=== PATIENT | female | born 1930 | race Caucasian/White ===

== ENCOUNTER 2016-11-29 12:43 | Inpatient (IN) | payer OTHER ==
[2016-11-29 18:30] LABS: MANUAL DIFF NEEDED? NO
[2016-11-29] MEDS: PROTONIX IV SCH (18:34)
[2016-11-29] MEDS: SODIUM CHLORIDE 0.9% INJ SCH (18:34)
[2016-11-29] MEDS: NS 1,000 ML IV SCH (18:34)
[2016-11-29 18:35] LABS: URINE MICRO REVIEW NEEDED? NO; URINE SOURCE CLEAN CATCH
[2016-11-29 18:38] LABS: BILIRUBIN URINE NEGATIVE (NEGATIVE); BLOOD URINE NEGATIVE (NEGATIVE); COLOR STRAW; GLUCOSE URINE NEGATIVE (NEGATIVE); LEUKOCYTES URINE NEGATIVE (NEGATIVE); NITRITE URINE NEGATIVE (NEGATIVE); PH URINE 6.5; PROTEIN URINE NEGATIVE (NEGATIVE); SP GRAVITY URINE 1.006; TURBIDITY URINE CLEAR (CLEAR); UR EPITHELIAL CELLS <10 /HPF (<10); URINE BACTERIA NEGATIVE /HPF; URINE RBC <10 /HPF (<10); URINE WBC <10 /HPF (<10); UROBILINOGEN URINE NORMAL (NORMAL)
[2016-11-29 18:38] LABS: BASO% 1.5 % (0.0-0.8); EOS# 0.15 X1000 (0.0-0.7); EOS% 2.7 % (0.0-10.0); HEMATOCRIT 23.6 % (37.0-47.0); HEMOGLOBIN 7.3 g/dL (12.0-16.0); IMM GRAN# 0.04 X1000 (0.0-0.04); IMM GRAN% 0.7 % (0.0-0.5); LYMPH# 1.05 X1000 (1.2-3.4); LYMPH% 19.2 % (20.5-51.1); MCH 24.3 PG (27-31); MCHC 30.9 g/dL (33-37); MCV 78.4 FL (81-99); MONO# 0.67 X1000 (0.11-0.59); MONO% 12.2 % (1.7-9.3); MPV 9.3 FL (7.4-10.4); NEUT% 63.7 % (42.2-75.2); PLT 424 X1000 (130-400); RBC 3.01 XMIL (4.2-5.4)
[2016-11-29 18:47] LABS: INR 1.16; PROTIME 12.3 Seconds (9.2-11.7); PTT 29.5 Seconds (22.0-36.0)
[2016-11-29 18:54] LABS: CALCIUM 10.2 mg/dL (8.8-10.2); POTASSIUM 4.9 mmol/L (3.5-5.1); TOTAL BILIRUBIN 0.25 mg/dL (0.20-1.00); TOTAL PROTEIN 6.3 g/dL (6.3-8.3)
--- NOTE | 2016-11-29 19:36 | HISTORY AND PHYSICAL ---
CHIEF COMPLAINT: Rectal bleed. HISTORY OF PRESENT ILLNESS: Ms. Maguire, 86-year-old, white female patient, recently discharged from [facility] on November 23 when patient was admitted with right upper lobe pneumonia. The patient was doing fairly well. After going home, the patient started having rectal bleed. It was Sunday, Sunday, Sunday. Moderate amount. Fresh bleeding per rectum. Some abdominal cramp. Perirectal pain. Patient came to see me yesterday. I evaluated patient. Did blood work. Offered patient to go to hospital, but patient claimed her bleeding is stopped and she wants to wait. I did receive blood test result. Her hemoglobin in my office was 7.2. Her discharge hemoglobin from the hospital was 9.5. I talked to patient's daughter. The patient had some feet swelling. The patient was feeling weak. She did have some confusion and disorientation. The patient had mild rectal bleed. Considering her blood loss anemia, compromised cardiopulmonary status, history suggestive of metabolic encephalopathy, I decided to admit the patient for further care. The patient was complaining of chest pain when I evaluated her today, which she described as a soreness. She did have some palpitation. Mild shortness of breath. She denied any nausea or vomiting. No diarrhea. No high-grade fever or chills. Denied any nosebleed, gum bleed, hematemesis, hematuria or hemoptysis. No heat or cold intolerance. Oral intake was variable. The patient does have arthritic pain in the lower back, also in the knee. No further history available at this time. ALLERGIES: Penicillin, phenytoin sodium. PAST MEDICAL HISTORY: 1. Hypertension. 2. Osteoarthritis. 3. Hypothyroidism. 4. Gastritis and reflux disease. 5. Abdominal aortic aneurysm. 6. Cardiac arrhythmia. 7. Peripheral neuropathy. 8. Hyperlipidemia. 9. Chronic pain. 10. Coronary artery disease. PERSONAL HISTORY: Single lives by herself. Denied alcohol or substance abuse. Independent in activities of daily living. The patient is a nonsmoker. FAMILY HISTORY: Noncontributory. REVIEW OF SYSTEMS: As per HPI. HOME MEDICATION: Patient is on Celebrex, Cardizem, Claritin, Flonase, diltiazem, Neurontin, fenofibrate, metoprolol, Zanaflex, Prevacid, meloxicam, Pletal, Imdur, aspirin, Perdiem, [place], multivitamin, Lasix, the patient was on Ceftin and potassium. PHYSICAL EXAMINATION: GENERAL: Elderly white female patient, in mild distress. VITAL SIGNS: Her blood pressure 150/77, pulse 110, respiration 18, temperature 98.2 degrees. SKIN: Senile turgor. HEENT: Head atraumatic normocephalic. Pale conjunctivae. Anicteric sclerae. Extraocular muscle movement normal. Fundus cannot be penetrated. Good oral hygiene. No tonsillopharyngeal congestion or exudate. Ears and nose benign. NECK: Supple. No JVD, thyromegaly or lymphadenopathy. CHEST: Bibasilar crepitation, no rales. CARDIOVASCULAR: S1 and S2. Tachycardia. 2/6 systolic murmur at the apex. No gallop or thrill. ABDOMEN: Soft, globular. Bowel sounds present. RECTAL: Exam in my office yesterday. Rectum was empty. No rectal mass. There was some blood on examining finger. EXTREMITIES: No cyanosis, clubbing. No acute DVT. Minimal swelling on the feet. PROPERTY MANAGEMENT BOOKKEEPER: Alert, awake, able to move all 4 limbs. LABORATORY DATA: Pending. CONSIDERATION: 1. Lower gastrointestinal bleed. My differential includes hemorrhoid, diverticular bleed. Considering her age, possibility of malignancy cannot be ruled out. 2. Acute blood loss anemia. 3. The patient had recent pneumonia, urinary tract infection, hypertension, osteoarthritis, gastritis, and reflux disease, dementia and confusion. PLAN: Admit the patient. I will transfuse 2 units of packed red blood cells considering patient being symptomatic and drop in hemoglobin and hematocrit and lower gastrointestinal bleed. Close observation. Oxygen. We will follow her laboratory. Gastroenterology consult, Dr. Cavanaugh informed and discussed her presentation encased with him. Overall plan discussed with patient and her daughter. They are in agreement.
--- NOTE | 2016-11-29 20:03 | CONSULTATION ---
DATE OF CONSULTATION: 11/29/2016 REASON FOR CONSULTATION: Evaluation of patient with rectal bleeding and anemia. HISTORY OF PRESENT ILLNESS: This is an 86-year-old lady who was seen by me about 6 months ago in the hospital because of an upper GI bleed. At that time she had epigastric pain , there was weakness and she had been having black tarry stools for 2 days. The patient had no nausea or vomiting. She had undergone endoscopy at that time which revealed a small hiatal hernia and mild gastritis. The patient did quite well. We actually talked about doing a colonoscopy at that time because of the chronic anemia but since the patient was elderly she did not want to get the colonoscopy done at that time and, therefore, it was not done. The patient went to see Dr. Newman yesterday and at that time she complained of having some fresh rectal bleeding. The patient was in the hospital for about 3 days for pneumonia and she was discharged on 11/23/2016. At that time her hemoglobin and hematocrit on arrival was 7.4 and 24. She received 2 units of blood transfusion and the hemoglobin went up to 9.5, hematocrit went up to 31. The patient did quite well and went home. When Dr. Newman checked her hemoglobin and hematocrit, it dropped to 7 again with hematocrit of 22. Therefore, he decided to admit the patient to give blood transfusions and consider further evaluation. PAST MEDICAL HISTORY: Patient has a history of hypertension, hyperlipidemia, aortic aneurysm, osteoarthritis, cardiac arrhythmia, chronic pain, peripheral neuropathy and also a history of hiatal hernia. Her scarrer is Dr. Hernandez. The aneurysm is said to be about 4.2 cm. She said that she had a colonoscopy done a few years ago and at that time what was found she does not remember. SOCIAL HISTORY: She does not abuse, alcohol or tobacco. She lives by herself. She has a daughter and other family members taking care of her. PAST SURGICAL HISTORY; Craniotomy Cataract surgery Appendectomy FAMILY HISTORY: Unremarkable. REVIEW OF SYSTEMS: The patient's appetite is good. There is no nausea or vomiting. No difficulty in swallowing. She has occasional heartburn present. No abdominal pain. She said that occasionally she gets some lower abdominal cramps. There had been fresh blood in the stool for the past 2 days. She feels quite weak and tired. There is no fever or chills. There is no significant cough. PHYSICAL EXAMINATION: Vital Signs: Temperature is 98.0 degrees, pulse rate is 110 per minute, respiratory rate is 18, blood pressure is 150/77. Skin: She looks very pale. Skin is warm and dry. Mucous membranes are moist. Neck: Supple. There is no thyromegaly. Cardiac: Both heart sounds are heard. Rhythm is regular. I did not hear any murmur. Lungs: Clear to percussion and auscultation. Abdomen: Protuberant. There is mild tenderness in the lower abdomen. No masses felt. Bowel sounds are normally heard. Extremities: Free of any edema. IMPRESSION: Lower GI bleed. RECOMMENDATION: I discussed doing a colonoscopy with Dr. Newman and the patient. She is kind of reluctant at this point, however, since there has been a significant drop in hematocrit after last admission and there is bleeding now, I believe that it needs to be done. I explained the benefits and risks to the patient, and she is agreeable at this point. I will continue a clear liquid diet today and tomorrow, and start golitely tomorrow and do colonoscopy on Sunday morning. [facility]
[2016-11-29] MEDS: NEURONTIN PO SCH (21:50)
[2016-11-29] MEDS: LOFIBRA PO SCH (21:50)
[2016-11-29] MEDS: KLOR-CON PO SCH (21:50)
[2016-11-29] MEDS: NORCO-5 PO PRN (21:56)
--- NOTE | 2016-11-30 05:42 | EKG Report ---
Test Performed on : 11/29/2016 5:32:22 PM Test Reason : Rectal bleed Blood Pressure : / mmHG Vent. Rate : 115 BPM Atrial Rate : 115 BPM P-R Int : 186 ms QRS Dur : 066 ms QT Int : 300 ms P-R-T Axes : 081 012 112 degrees QTc Int : 415 ms Sinus tachycardia. Septal infarct (cited on or before 21-NOV-2016) ST & T wave abnormality, consider lateral ischemia Abnormal ECG When compared with ECG of 21-NOV-2016 18:51, Serial changes of Septal infarct present Confirmed by Shiraz Bergman MD ([id number]) on 12/01/2016 9:44:43 PM
[2016-11-30 05:44] LABS: MANUAL DIFF NEEDED? NO
[2016-11-30 05:57] LABS: BASO% 1.2 % (0.0-0.8); EOS# 0.15 X1000 (0.0-0.7); EOS% 2.6 % (0.0-10.0); HEMATOCRIT 25.1 % (37.0-47.0); HEMOGLOBIN 7.7 g/dL (12.0-16.0); IMM GRAN# 0.02 X1000 (0.0-0.04); IMM GRAN% 0.3 % (0.0-0.5); LYMPH# 1.07 X1000 (1.2-3.4); LYMPH% 18.3 % (20.5-51.1); MCH 24.2 PG (27-31); MCHC 30.7 g/dL (33-37); MCV 78.9 FL (81-99); MONO# 0.73 X1000 (0.11-0.59); MONO% 12.5 % (1.7-9.3); MPV 9.4 FL (7.4-10.4); NEUT% 65.1 % (42.2-75.2); PLT 424 X1000 (130-400); RBC 3.18 XMIL (4.2-5.4)
[2016-11-30] MEDS ORDERED: LASIX IV ONE (05:58)
[2016-11-30 06:04] LABS: ALBUMIN 2.9 g/dL (3.5-5.0); CALCIUM 9.7 mg/dL (8.8-10.2); POTASSIUM 4.7 mmol/L (3.5-5.1); TOTAL BILIRUBIN 0.31 mg/dL (0.20-1.00); TOTAL PROTEIN 5.7 g/dL (6.3-8.3)
--- NOTE | 2016-11-30 06:35 | PROGRESS NOTE ---
DATE: 11/30/2016 SUBJECTIVELY: Ms. Maguire is doing fair. Today, she was complaining of vague abdominal pain. No nausea, vomiting. The patient was not able to rest well last night. She is receiving her first unit of packed RBC now. No typical chest pain. No high-grade fever or chills. No dysuria or hematuria. She does have arthritic pain. OBJECTIVE: Vital signs: Reviewed. Lungs: Bilateral good air entry present. CVS: S1 and S2. Tachycardia. Abdomen: Soft, globular. Bowel sounds present. Extremities: No cyanosis, clubbing. No acute DVT. Minimal swelling around ankle. DAILY RELEASE AND DUPE PRINTER: Alert, awake. Able to move all 4 limbs. ASSESSMENT: 1. The patient does look well. Patient admitted with: 2. Lower GI bleed. 3. Acute blood loss anemia. 4. She does have osteoarthritis. 5. Tachycardia. 6. Gastritis and reflux disease. 7. History suggestive of coronary artery disease. DIAGNOSTICS: The patient's EKG reveals sinus tachycardia. PLAN: To transfuse patient. GI consultation noted. Overall plan discussed with patient and her daughter. They are in agreement. Her hemoglobin was 7.3, hematocrit 23.6. PT/INR 1.16. BUN 26 and creatinine 1.4. Urinalysis was benign. The patient is scheduled to have colonoscopy tomorrow.
--- NOTE | 2016-11-30 06:36 | Diag Imaging Result Document ---
PROCEDURE NAME: ABDOMEN FLAT/UPRIGHT - 11/29/2016 FLAT AND UPRIGHT ABDOMEN, TWO VIEWS: FINDINGS: No free air beneath the diaphragm. There is stool throughout the colon. The bowel loops are not dilated. No organomegaly. Prominent atherosclerosis. I believe there is an abdominal aortic aneurysm measuring approximately 4 cm. This measurement is very inaccurate due to the study and the patient's scoliosis. IMPRESSION: 1. Constipation. 2. Abdominal aortic aneurysm with prominent atherosclerosis. Further imaging recommended. [facility]
[2016-11-30] MEDS ORDERED: PRILOSEC PO SCH (07:00)
[2016-11-30] MEDS ORDERED: GLUCOSAMINE 500 MG/CHONDROITIN 400 MG PO SCH (09:00)
[2016-11-30] MEDS ORDERED: SENOKOT PO SCH (09:00)
[2016-11-30] MEDS ORDERED: TAGAMET PO SCH (09:00)
--- NOTE | 2016-11-30 09:29 | PROGRESS NOTE ---
DATE: 11/30/2016 SUBJECTIVE: This is an 86-year-old lady admitted with anemia and rectal bleeding. The patient's hematocrit dropped in about a week significantly and therefore she was admitted. She is feeling better with one unit of blood transfusion. She did not have any serious bleeding since admission. She is tolerating clear liquid diet. No serious abdominal pain either. OBJECTIVE: Vital Signs: The temperature is 98.1 degrees, pulse rate is 112 per minute, respiratory rate is 16, blood pressure is 145/89. General Appearance: She looks pale. Skin is warm and dry. HEENT: Mucous membranes are moist. Neck: Supple. There is no thyromegaly. Cardiology: Both heart sounds are heard. Rhythm is slightly tachycardic, but regular. I could not hear any murmur. Abdomen: Protuberant. No significant tenderness. Bowel sounds are heard. Extremities: Free of any edema. LABORATORY DATA: The WBC count is 5.85, hemoglobin 7.7, hematocrit 25.1. Sodium is 142, potassium 4.7, chloride is 105. CO2 is 23. BUN is 20, creatinine is 1.2. Albumin is 2.9. IMPRESSION: Rectal bleeding. Some improvement in hematocrit after 1 unit of blood transfusion. She is getting another unit today. We will prepare her for colonoscopy tomorrow morning. I have explained the procedure of colonoscopy with benefit and risks, in particular, risk of perforation, hemorrhage, and infection. Patient agreed for it. We will proceed with it. I also explained about monitored anesthesia care. She agreed for it.
[2016-11-30] MEDS: FLONASE NAS SCH (10:13)
[2016-11-30] MEDS: THERA M PLUS PO SCH (10:19)
[2016-11-30] MEDS: KLOR-CON PO SCH ×3 (10:20→23:05)
[2016-11-30] MEDS: CLARITIN PO SCH (10:20)
[2016-11-30] MEDS: CARDIZEM CD PO SCH (10:20)
[2016-11-30] MEDS: LOPRESSOR PO SCH (10:21)
[2016-11-30] MEDS: VITAMIN D PO SCH (10:22)
[2016-11-30] MEDS: IMDUR PO SCH (13:00)
[2016-11-30] MEDS: LASIX PO SCH (13:01)
[2016-11-30] MEDS: NS 1,000 ML IV SCH ×2 (13:17→23:07)
[2016-11-30] MEDS ORDERED: GOLYTELY PO ONE (14:00)
[2016-11-30] MEDS: SODIUM CHLORIDE 0.9% INJ SCH (17:45)
[2016-11-30] MEDS: PROTONIX IV SCH (17:45)
[2016-11-30] MEDS: NEURONTIN PO SCH ×2 (22:24→23:06)
[2016-11-30] MEDS: LOFIBRA PO SCH ×2 (22:26→23:05)
[2016-12-01 06:08] LABS: HEMATOCRIT 32.1 % (37.0-47.0); HEMOGLOBIN 10.4 g/dL (12.0-16.0); MCH 25.7 PG (27-31); MCHC 32.4 g/dL (33-37); MCV 79.5 FL (81-99); MPV 9.3 FL (7.4-10.4); RBC 4.04 XMIL (4.2-5.4)
[2016-12-01 06:31] LABS: ALBUMIN 2.9 g/dL (3.5-5.0); CALCIUM 9.1 mg/dL (8.8-10.2); POTASSIUM 3.6 mmol/L (3.5-5.1); TOTAL BILIRUBIN 0.52 mg/dL (0.20-1.00); TOTAL PROTEIN 5.8 g/dL (6.3-8.3)
[2016-12-01] MEDS ORDERED: KLOR-CON PO ONE (06:33)
--- NOTE | 2016-12-01 06:51 | PROGRESS NOTE ---
DATE: 12/01/2016 SUBJECTIVE: Ms. Maguire is doing better. She received 2 units of packed RBC. She tolerated blood well. She denied any high-grade fever or chills. No nausea or vomiting. No typical chest pain. Her vital signs reviewed.Lungs: Bibasilar crepitation. Heart: 2/6 systolic murmur at the apex. Abdomen: Soft, globular. Bowel sounds present. WEB ADMINISTRATOR: Alert, awake. Able to move all 4 limbs. CONSIDERATION: The patient admitted with lower GI bleed. Acute blood loss anemia. The patient does have history of coronary artery disease. The patient found to have abdominal aortic aneurysm. The patient is scheduled to have colonoscopy today. I am going to get abdominal aortic ultrasound. I discussed plan with her daughter today and son yesterday. They requested DNR as per patient wishes. LAB DATA: Done today did reveal mild hypokalemia. I am going to supplement potassium. Hemoglobin this morning 10.4, hematocrit 32.1. PLAN: Labs and medication noted. We will continue current treatment and close observation.
[2016-12-01] MEDS ORDERED: MYLICON DROPS (DOSE) MISC ONE (06:52)
[2016-12-01] MEDS ORDERED: FENTANYL ONE ×2 (07:40→17:52)
[2016-12-01] MEDS ORDERED: DIPRIVAN 1% ONE (07:41)
[2016-12-01] MEDS ORDERED: XYLOCAINE-MPF 2% ONE (09:18)
[2016-12-01] MEDS ORDERED: ANESTHESIA PB SET 88 IN 5742 ONE (09:18)
[2016-12-01] MEDS ORDERED: LR 1,000 ML ONE (09:18)
--- NOTE | 2016-12-01 10:43 | Diag Imaging Result Document ---
PROCEDURE NAME: ABDOMEN/PELVIS W/CONTRAST - 12/01/2016 CT ABDOMEN AND PELVIS WITH INTRAVENOUS CONTRAST: COMPARISON: Ultrasound abdomen 01/01/2014. FINDINGS: There has been slight progression in the infrarenal abdominal aortic aneurysm. This now measures about 3.2 x 3.2 cm maximally. Stable heavy vascular disease with severe calcification. There is also extensive calcified vascular plaque in the proximal and mid superior mesenteric artery with moderate stenosis of about 50%-60%. The renal arteries are also affected, with severe stenosis of about 80% bilaterally. There are several small calcified gallstones in the gallbladder. These were present in 2013. There has been decrease in size of the cystic area in the left lobe of the liver now measuring about 1.2 cm. There is a tiny amount of intraperitoneal free air. There is concentric wall thickening with some adjacent inflammation at the proximal ascending colon. This involves the cecum and ileocecal valve. There is trace pelvic free fluid. Moderate degenerative changes of the spine and pelvis. No acute bony lesions. There is cardiomegaly, interstitial pulmonary edema, and trace pleural effusions in the lung bases. IMPRESSION: 1. Suspicious wall thickening of the cecum consistent with known diagnosis of severe ischemic colitis. 2. Intraperitoneal free air. Please correlate if there has been a recent biopsy. 3. Indeterminate low-density liver lesion. This may suggest a metastasis. 4. Trace pelvic free fluid. 5. Increasing abdominal aortic aneurysm. 6. Cardiomegaly. Interstitial pulmonary edema in the lung bases. 7. Mass in mid-transverse colon cancer consistent with known colon cancer. [facility]
[2016-12-01] MEDS: LOPRESSOR PO SCH (10:48)
[2016-12-01] MEDS: VITAMIN D PO SCH (10:48)
--- NOTE | 2016-12-01 12:06 | CONSULTATION ---
DATE OF CONSULTATION: 12/01/2016 Ms. Liseth Maguire is an 86-year-old white female patient of Dr. Newman who recently was admitted with pneumonia but is readmitted with rectal bleeding and anemia. She underwent a colonoscopy today by Dr. Cavanaugh, which documented some ischemia involving her cecum but also a colonic mass felt to be in the mid transverse colon and we were asked to evaluate her. PAST MEDICAL HISTORY: She has she does have known coronary artery disease with previous stent placement. Dr. 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 She has a known infrarenal abdominal aortic aneurysm felt to measure approximately 4.2 cm. She has hypertension, osteoarthritis, hypothyroidism, gastroesophageal reflux disease, hyperlipidemia and peripheral neuropathy. She has had a hysterectomy and appendectomy. ALLERGIES: Penicillin and Dilantin. MEDICATIONS: Metoprolol 25 mg daily. Vitamin D 3. Multivitamins. Prevacid. Diltiazem. Flonase. Potassium chloride. Claritin. Isosorbide. Lasix. Meloxicam. Neurontin. Aspirin. Fenofibrate. Cilostazol. Tizanidine. SOCIAL HISTORY: She still lives alone. Her daughter was at the bedside. She has also 2 sons, 1 living in [place]. She does not smoke. REVIEW OF SYSTEMS: She has some dementia, mild. She has had no significant weight loss. She remains independent living at home. FAMILY HISTORY: Noncontributory. PHYSICAL EXAMINATION: General: On examination, Ms. Maguire is an elderly white female who wears hearing aids. She has no jaundice. No oral lesions. No cervical or supraclavicular lymphadenopathy. Heart: Has a regular rate. Lungs: Clear to auscultation and percussion bilaterally. Abdomen: Slightly distended but is not tender. She has a lower midline incision which is well healed. There was no palpable mass. No costovertebral tenderness. Rectal/Vaginal: Exams were not performed. She does have palpable femoral pulses. She has no significant peripheral edema. Neurologic: She was awake, cooperative, oriented without evidence of focal deficits. She has received a unit of packed red blood cells during her hospitalization. Her hematocrit is 30%. Colonoscopy findings as above. IMPRESSION: Evidence of some ischemia involving her cecum and ascending colon and also a mid transverse colonic mass in a patient with rectal bleeding and anemia. PLAN: I frankly discussed colon resection with the patient and her daughter at the bedside. They understand this is major surgery in an 86-year-old woman and that she probably would not be able to leave this hospital and be independent at home. She would probably have to go to a rehab or have help at home. They understand there is risk of this surgery including bleeding, infection, anastomotic leakage and she may require ICU hospitalization and even prolonged ventilatory support. She is going to discuss it with her family today and decisions for surgery will be made this afternoon or Sunday.
[2016-12-01] MEDS: THERA M PLUS PO SCH (12:20)
[2016-12-01] MEDS: CARDIZEM CD PO SCH (12:20)
[2016-12-01] MEDS: LASIX PO SCH (12:20)
[2016-12-01] MEDS: KLOR-CON PO SCH ×2 (12:21→20:55)
[2016-12-01] MEDS: FLONASE NAS SCH (12:21)
[2016-12-01] MEDS: IMDUR PO SCH (12:21)
[2016-12-01] MEDS: NS 1,000 ML IV SCH (12:22)
[2016-12-01] MEDS: CLARITIN PO SCH (12:22)
[2016-12-01] MEDS ORDERED: SODIUM CHLORIDE 0.9% 20 ML ONE (14:38)
[2016-12-01] MEDS ORDERED: MARCAINE 0.25% PF ONE ×2 (14:38→14:39)
[2016-12-01] MEDS ORDERED: EXPAREL 1.3% ONE (14:40)
[2016-12-01] MEDS ORDERED: INVANZ 1 GM/NS 50 ML ONE (14:58)
--- NOTE | 2016-12-01 15:17 | OPERATIVE NOTE ---
PROCEDURE DATE: 12/01/2016 PROCEDURE: Colonoscopy. REASON FOR PROCEDURE: This patient has severe anemia and also had rectal bleeding. MEDICATIONS: All given by the anesthesiologist. Patient was monitored before, during, and after the procedure by them and her condition remained stable. PHOTOGRAPHS: Photos taken from the transverse colon lesion and also from the cecum. SPECIMEN: From the transverse colon lesion. DESCRIPTION OF PROCEDURE: The patient was kept in the left lateral decubitus position. Rectal examination was performed. The anal canal lubricated. The Olympus video scope was introduced in the rectum and advanced to the cecum the patient tolerated the procedure well and bowel preparation was good. FINDINGS: The rectum appeared normal without any lesions. Sigmoid was extremely tortuous, but no lesions were found. The splenic flexure was very tortuous. Around the mid transverse colon, the patient had an ulcerated mass. The ulceration was quite deep, which was occupying about 50% of the lumen. The mass had areas of frond villous changes present. The ulcerated area was quite deep with everted margins. 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 I did the biopsies and then I went passed it into the cecum. In the proximal ascending colon and cecum, there was ulceration, edema, and erythema suggestive of what appeared to be ischemic colitis. I brought the scope back into the area where the cancer was present. I injected that area with 4 mL of Mary ink to tattoo it so that while surgery is done the surgeon will be able to identify that area. After taking all the air out from the patient's colon and scope was removed from the patient. IMPRESSION: 1. Transverse colon malignancy with deep ulceration. 2. Ischemic colitis involving the right colon. RECOMMENDATION: This patient is at high risk for perforation of the colon because of 2 problems; 1 is a deep ulcer, and the other 1 is the ischemic colitis. I met with Dr. Luna and explained the patient's condition to him and he spoke with the patient's daughter and he is planning for surgery. However, I will do a CT scan of the abdomen and pelvis before that. I also discussed the case with Dr. Newman and he is agreeable for the management.
[2016-12-01] MEDS: MORPHINE ONE ×3 (17:45→18:11)
--- NOTE | 2016-12-01 18:07 | OPERATIVE NOTE ---
PROCEDURE DATE: 12/01/2016 PREOPERATIVE DIAGNOSES: 1. 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 3. Chronic cholecystitis with cholelithiasis. POSTOPERATIVE DIAGNOSES: 1. 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 3. Chronic cholecystitis with cholelithiasis. PRINCIPAL PROCEDURE: 1. Open extended right hemicolectomy including the middle colic vessels with primary reanastomosis. 2. Open cholecystectomy. SURGEON: Roberta Luna MD APPLICATION DEVELOPMENT DIRECTOR: Katty Santos RN. ANESTHESIA: General. ESTIMATED BLOOD LOSS: 100 mL. DRAINS: None. INDICATIONS: Ms. Listeh Maguire is an 86-year-old white female patient of Dr. Newman who is admitted with rectal bleeding. She underwent colonoscopy by Dr. Cavanaugh and it was documented that she had ischemic changes involving her cecum and also colon cancer in the transverse colon. A CT scan of her abdomen and pelvis was performed, which documented cholelithiasis, thickening of the cecum and a small amount of free air. It was felt she needed urgent colon resection because of her ischemia. FINDINGS: Cecum was thickened and it was inflamed but there was no evidence of perforation. The colon cancer involved the midtransverse colon right at the area of the middle colic vessels and we had to take those vessels. The remainder of the colon appeared to be viable and we performed a end-to-side distal ileum to distal transverse colon anastomosis. The gallbladder was chronically inflamed and had gallstones within it and we removed it. The liver appeared to be normal as did the small bowel. No other intraabdominal pathology was noted and we felt we did the operation safely. DESCRIPTION OF PROCEDURE: The patient had already undergone a bowel prep. She was brought to the operating room, received a abdominal block per anesthesia after she received general anesthesia and was intubated. A Shrestha catheter tube was placed. Her abdomen was prepped and draped in a sterile field. We used an Ioban on the skin and we made a midline incision with a 10-blade scalpel. This incision was carried down through the skin and subcutaneous tissue to the midline fascia, which we carefully opened and entered the abdomen. We used a wound protector for retraction. We explored the abdomen with the findings above and we began the procedure by mobilizing the right colon. We used the cautery to incise the peritoneum laterally, along the pericolic gutter on the right and then we used blunt finger dissection to bring up the colon into our wound. We carefully took down the hepatic flexure. We mobilized the transverse colon and we took half of the greater omentum involving our specimen and the tumor. Once the colon was completely mobilized we came across the distal ileum with the TED stapler and we came across the distal transverse colon again with a reload of this TED stapler. We used Julisa clamps to come across the mesentery when we encountered vessels and we did a good cancer operation taking the mesentery at its roots. We suture ligated the ileocolic vessels and the middle colic vessels. We did take the middle colic vessels because the tumor was in the midtransverse colon. We got at least 5-6 cm distal to the tumor with our resection. The specimen was removed from the field. We then took our time to remove the gallbladder in an open fashion. I dissected out the triangle of Calot. We identified the cystic artery and it was ligated with 3-0 silk ties and divided using tissue scissors. The cystic duct was identified along its length and again it was ligated between 3-0 6 silk ties and divided. We used cautery to remove the gallbladder from the liver bed and it was sent to the pathologist. We then performed our anastomosis. We chose to perform an end-to-side anastomosis, end ileum to side distal transverse colon. This was a double layer sewn anastomosis using 3-0 popoff silks initially. We then removed the staple line of the ileum and opened within the antimesenteric tinea with the cautery in the colon. The mucosa and colon appeared to be viable as did the distal ileum. We reinforced our posterior anastomosis with a running interlocking 3-0 Vicryl stitch which was continued on the anterior wall as a Uriel stitch and we reinforced the Linwood stitch with interrupted 3-0 silk Lembert stitches. There was no tension on our anastomosis. The caliber of the anastomosis was good and we felt the blood supply was adequate. We reapproximated the defect in the mesentery with interrupted 3-0 silk stitches. We placed the bowel back in anatomically correct position. The remainder of the omentum was draped over the superficial area of the bowel. We thoroughly irrigated out the abdomen with warm irrigation. It was removed with suction and we closed our midline incision in layers. The first layer was a running 0 Vicryl stitch to close the peritoneum and then we closed the fascia with a running #1 Maxon stitch. We irrigated out the wound and we closed the skin with a skin clip kinesiology professor and dressings were applied. She tolerated the procedure well with plans for her to go the recovery room. We did not use an NG tube. She still has a Shrestha catheter tube in place and I spoke with her family after the procedure.
[2016-12-01] MEDS: PROTONIX IV SCH (18:11)
[2016-12-01] MEDS ORDERED: MORPHINE IV PRN (19:22)
[2016-12-01] MEDS ORDERED: ZOFRAN IV PRN (19:24)
[2016-12-01] MEDS: LOFIBRA PO SCH (20:55)
[2016-12-01] MEDS: NEURONTIN PO SCH (20:56)
[2016-12-01] MEDS: TORADOL IV SCH (21:04)
[2016-12-01] MEDS: LR 1,000 ML IV SCH (21:05)
[2016-12-01] MEDS: OFIRMEV 1000 MG/ISOTONIC SOLN 100 ML IV SCH (23:54)
[2016-12-02] MEDS: NORCO-5 PO PRN ×2 (00:30→12:34)
[2016-12-02] MEDS: TORADOL IV SCH ×3 (01:27→13:41)
[2016-12-02] MEDS: LR 1,000 ML IV SCH ×3 (03:14→15:37)
[2016-12-02] MEDS: MORPHINE ONE (03:15)
[2016-12-02] MEDS: SODIUM CHLORIDE 0.9% INJ SCH ×2 (03:15→17:10)
[2016-12-02] MEDS: OFIRMEV 1000 MG/ISOTONIC SOLN 100 ML IV SCH ×4 (05:24→23:18)
[2016-12-02] MEDS: LOVENOX SUBQ SCH (05:24)
[2016-12-02] MEDS ORDERED: LASIX IV ONE (08:15)
--- NOTE | 2016-12-02 08:49 | PROGRESS NOTE ---
DATE: 12/02/2016 SUBJECTIVE: Ms. Maguire is doing fairly well. The patient underwent colonoscopy yesterday which did reveal ischemic colitis and transverse colon malignancy with deep ulceration. The patient's CT scan results reviewed. The patient underwent exploratory laparotomy and colon resection. The patient tolerated the procedure well. She is doing better. She denied any chest pain. Mild shortness of breath. No nausea or vomiting. OBJECTIVE: Her vital signs noted. Neck supple. No JVD. Lungs: Bibasilar few rales. CVS: S1 and S2 heard. 2/6 systolic murmur at the apex. Abdomen soft, globular. Bowel sounds hypoactive. Extremities: No cyanosis, clubbing. No acute DVT. Central Nervous System: Alert, awake, able to move all 4 limbs. PROBLEMS: 1. Ischemic colitis. 2. Transverse colon mass, status post surgery. 3. Abdominal aortic aneurysm. 4. Questionable lesion in the liver. 5. Hypertension. PLAN: I am going to give her a small dose of Lasix, check appropriate lab, continue current treatment. Overall plan and prognosis discussed with the patient's family, and they are in agreement.
[2016-12-02] MEDS: FLONASE NAS SCH (09:06)
[2016-12-02 09:08] LABS: AGAP 15; ALBUMIN 2.4 g/dL (3.5-5.0); ALKALINE PHOSPHATASE 45 U/L (32-104); BUN 8 mg/dL (8-22); CALCIUM 8.4 mg/dL (8.8-10.2); CHLORIDE 100 mmol/L (98-107); COSMO 272; GOT 64 U/L (10-30); GPT 22 U/L (10-36); POTASSIUM 3.6 mmol/L (3.5-5.1); SODIUM 137 mmol/L (136-145); TCO2 22 mmol/L (25-35); TOTAL BILIRUBIN 0.51 mg/dL (0.20-1.00)
[2016-12-02] MEDS: SENOKOT PO SCH (09:09)
[2016-12-02] MEDS: IMDUR PO SCH (09:10)
[2016-12-02] MEDS: CARDIZEM CD PO SCH (09:10)
[2016-12-02] MEDS: THERA M PLUS PO SCH (09:10)
[2016-12-02] MEDS: VITAMIN D PO SCH (09:11)
[2016-12-02] MEDS: KLOR-CON PO SCH ×3 (09:11→22:26)
[2016-12-02] MEDS: LASIX PO SCH (09:12)
[2016-12-02 09:13] LABS: BASO% 0.3 % (0.0-0.8); EOS# 0.04 X1000 (0.0-0.7); EOS% 0.4 % (0.0-10.0); HEMATOCRIT 35.2 % (37.0-47.0); IMM GRAN# 0.02 X1000 (0.0-0.04); IMM GRAN% 0.2 % (0.0-0.5); LYMPH# 0.57 X1000 (1.2-3.4); LYMPH% 5.6 % (20.5-51.1); MANUAL DIFF NEEDED? YES; MCH 25.1 PG (27-31); MCHC 31.3 g/dL (33-37); MCV 80.2 FL (81-99); MONO# 0.84 X1000 (0.11-0.59); MONO% 8.3 % (1.7-9.3); MPV 9.5 FL (7.4-10.4); NEUT% 85.2 % (42.2-75.2); PLT 402 X1000 (130-400); RBC 4.39 XMIL (4.2-5.4)
[2016-12-02 09:24] LABS: BANDS 6 % (0-1); LYMPHS 4 % (21-51); MONO 6 % (1-9)
[2016-12-02] MEDS: LOPRESSOR PO SCH (09:28)
[2016-12-02] MEDS: CLARITIN PO SCH (09:28)
--- NOTE | 2016-12-02 11:45 | PROGRESS NOTE ---
DATE: 12/02/2016 This patient has undergone colonoscopy by me yesterday and she had a transverse colon cancer and also ischemic colitis of the right colon. The patient yesterday afternoon has undergone surgery and this morning she is doing fairly good. She is back in her room since last night and has soreness in the lower abdomen. Generally she is in good spirits. OBJECTIVE: The temperature is 98, pulse rate is 115, respiratory rate is 16, blood pressure is 145/75.Skin: Warm and dry. Mucous membranes are moist. Neck: Supple. There is no thyromegaly. Cardiology: Both heart sounds are heard. Rhythm is regular. I could not hear any murmur. Lungs: Show a few bibasilar crackles. Abdomen: Postop. Intake 3468, output is 325, today and she is positive 3143. IV intake was 2600. IMPRESSION: Status post colectomy for ischemic colitis and colon cancer. Condition on postop day 1 is good and stable. Hopefully she will progress normally. I reassured and encouraged her. The labs were noted which were okay.
--- NOTE | 2016-12-02 14:14 | PROGRESS NOTE ---
DATE: 12/02/2016 SUBJECTIVE: The patient denies any severe pain, nausea or vomiting. She has passed gas. OBJECTIVE: She is afebrile. Vital signs were stable. General: A weak appearing elderly female but in no acute distress. CV: Regular rate and rhythm. Respiratory: No work of breathing. GI: Soft, nondistended. Positive bowel sounds. Incision clean dry and intact. She is appropriately tender. LABORATORY: White blood cell count 10, hemoglobin 11, platelet count 402,000. Complete metabolic profile reviewed and unremarkable. ASSESSMENT AND PLAN: 86-year-old female status post extended right colectomy. She is doing remarkably well. I am going to advance her to a clear liquid diet today.
[2016-12-02] MEDS: PROTONIX IV SCH (17:10)
[2016-12-02] MEDS: NEURONTIN PO SCH ×2 (19:28→22:26)
[2016-12-02] MEDS: LOFIBRA PO SCH ×2 (19:31→22:26)
[2016-12-03] MEDS: LR 1,000 ML IV SCH ×3 (04:29→20:12)
[2016-12-03] MEDS: OFIRMEV 1000 MG/ISOTONIC SOLN 100 ML IV SCH ×3 (05:33→18:16)
[2016-12-03] MEDS: LOVENOX SUBQ SCH (05:33)
[2016-12-03] MEDS: NORCO-5 PO PRN ×2 (05:35→21:58)
[2016-12-03 06:23] LABS: MANUAL DIFF NEEDED? NO
[2016-12-03 06:31] LABS: BASO% 0.5 % (0.0-0.8); EOS# 0.27 X1000 (0.0-0.7); EOS% 2.4 % (0.0-10.0); HEMATOCRIT 30.1 % (37.0-47.0); HEMOGLOBIN 9.4 g/dL (12.0-16.0); IMM GRAN# 0.03 X1000 (0.0-0.04); IMM GRAN% 0.3 % (0.0-0.5); LYMPH# 0.74 X1000 (1.2-3.4); LYMPH% 6.7 % (20.5-51.1); MCH 25.2 PG (27-31); MCHC 31.2 g/dL (33-37); MCV 80.7 FL (81-99); MONO% 8.1 % (1.7-9.3); MPV 9.5 FL (7.4-10.4); PLT 369 X1000 (130-400); RBC 3.73 XMIL (4.2-5.4)
[2016-12-03 06:52] LABS: AGAP 14; ALBUMIN 2.4 g/dL (3.5-5.0); ALKALINE PHOSPHATASE 45 U/L (32-104); BUN 7 mg/dL (8-22); CALCIUM 8.2 mg/dL (8.8-10.2); CHLORIDE 99 mmol/L (98-107); COSMO 273; GOT 36 U/L (10-30); GPT 17 U/L (10-36); MAGNESIUM 1.2 mg/dL (1.5-2.7); POTASSIUM 3.5 mmol/L (3.5-5.1); SODIUM 138 mmol/L (136-145); TCO2 25 mmol/L (25-35); TOTAL BILIRUBIN 0.46 mg/dL (0.20-1.00); TOTAL PROTEIN 4.8 g/dL (6.3-8.3)
[2016-12-03] MEDS: CARDIZEM CD PO SCH (08:00)
[2016-12-03] MEDS: FLONASE NAS SCH (08:00)
[2016-12-03] MEDS: SENOKOT PO SCH (08:00)
[2016-12-03] MEDS: THERA M PLUS PO SCH (08:00)
[2016-12-03] MEDS: VITAMIN D PO SCH (08:00)
[2016-12-03] MEDS: IMDUR PO SCH (08:01)
[2016-12-03] MEDS: LASIX PO SCH (08:01)
[2016-12-03] MEDS: CLARITIN PO SCH (08:01)
[2016-12-03] MEDS: KLOR-CON PO SCH ×2 (08:02→20:12)
[2016-12-03] MEDS: LOPRESSOR PO SCH (08:02)
[2016-12-03] MEDS ORDERED: MAGNESIUM SULFATE 2 GM/S.W.I. 50 ML IV ONE (11:04)
--- NOTE | 2016-12-03 14:11 | PROGRESS NOTE ---
DATE: 12/03/2016 SUBJECTIVE: Subjectively, Ms. Maguire is doing better. She denied any fever or chills. She tolerated liquid well. No nausea or vomiting. The patient did pass flatus twice. No unusual cough or expectoration. The patient is status post colectomy for colon cancer. The patient admitted with blood loss anemia, status post 2 units of packed RBC. OBJECTIVE: Vital Signs: Her vital signs reviewed. Lungs: Bibasilar crepitations. Cardiovascular: S1 and S2 heard. A 2/6 systolic murmur at the apex. Abdomen: Soft, globular. Bowel sounds present. Generalized soreness. Extremities: No cyanosis, clubbing. No acute deep vein thrombosis. CASE MANAGER SPECIALIST: Alert, awake, able to move all 4 limbs. LABORATORY DATA: Did reveal low normal potassium and hypomagnesemia. I am going to supplement magnesium. Continue rest of the treatment. PLAN: Overall plan discussed with patient and family. They are in agreement. I am going to get social service consult for possible rehab placement.
[2016-12-03] MEDS: SODIUM CHLORIDE 0.9% INJ SCH (18:17)
[2016-12-03] MEDS: PROTONIX IV SCH (18:17)
[2016-12-03] MEDS: LOFIBRA PO SCH (20:12)
[2016-12-03] MEDS: NEURONTIN PO SCH (20:12)
[2016-12-04] MEDS: OFIRMEV 1000 MG/ISOTONIC SOLN 100 ML IV SCH ×2 (02:53→05:54)
[2016-12-04] MEDS: LOVENOX SUBQ SCH (05:54)
[2016-12-04 06:23] LABS: MANUAL DIFF NEEDED? NO
[2016-12-04 06:27] LABS: BASO% 0.4 % (0.0-0.8); EOS# 0.38 X1000 (0.0-0.7); EOS% 2.7 % (0.0-10.0); HEMATOCRIT 30.4 % (37.0-47.0); HEMOGLOBIN 9.6 g/dL (12.0-16.0); IMM GRAN# 0.02 X1000 (0.0-0.04); IMM GRAN% 0.1 % (0.0-0.5); LYMPH# 0.92 X1000 (1.2-3.4); LYMPH% 6.5 % (20.5-51.1); MCH 25.3 PG (27-31); MCHC 31.6 g/dL (33-37); MCV 80.2 FL (81-99); MONO# 1.04 X1000 (0.11-0.59); MONO% 7.4 % (1.7-9.3); MPV 9.8 FL (7.4-10.4); NEUT% 82.9 % (42.2-75.2); PLT 416 X1000 (130-400); RBC 3.79 XMIL (4.2-5.4)
[2016-12-04] MEDS ORDERED: LASIX IV ONE (06:43)
[2016-12-04] MEDS ORDERED: LR 1,000 ML IV SCH (06:45)
[2016-12-04 07:06] LABS: AGAP 12; ALBUMIN 2.3 g/dL (3.5-5.0); ALKALINE PHOSPHATASE 52 U/L (32-104); BUN 8 mg/dL (8-22); CALCIUM 8.5 mg/dL (8.8-10.2); CHLORIDE 96 mmol/L (98-107); COSMO 261; GOT 28 U/L (10-30); GPT 15 U/L (10-36); POTASSIUM 3.9 mmol/L (3.5-5.1); SODIUM 131 mmol/L (136-145); TCO2 23 mmol/L (25-35); TOTAL PROTEIN 5.2 g/dL (6.3-8.3)
--- NOTE | 2016-12-04 07:10 | PROGRESS NOTE ---
DATE: 12/04/2016 SUBJECTIVE: Ms. Maguire is status post right extended hemicolectomy for colon cancer and ischemic colitis. The patient is doing better. The patient did have a bowel movement yesterday. She is passing flatus. Patient also had chronic cholecystitis and cholelithiasis and had cholecystectomy. The patient does have mild abdominal soreness. No high-grade fever or chills. No chest pain. OBJECTIVE: Vital signs: Noted. Neck: Supple. No JVD. Lungs: Bibasilar crepitation. Heart: 2/6 systolic murmur at the apex. Abdomen: Soft, globular. Bowel sounds present. Patient does have generalized soreness. Extremities: No cyanosis, clubbing. No acute DVT. RN EMBEDDED: Alert, awake. Able to move all 4 limbs. CONSIDERATION/ASSESSMENT: 1. Colon cancer status post right extended hemicolectomy. 2. Gallstones and chronic cholecystitis, status post cholecystectomy. 3. Ischemic colitis. 4. Blood-loss anemia. 5. Hypertension. 6. Patient does have multiple complex medical issues. Overall patient is doing fair. Her lab data done yesterday, her CEA level was 8.1. Electrolytes ordered for today, results are pending. The patient overall intake was very poor. I think she will be benefited from Clinimix. I am going to decrease IV fluid. Continue rest of the medication. Surgeon and risk control analyst following patient with us.
[2016-12-04] MEDS ORDERED: NEOSTIGMINE ONE (08:13)
[2016-12-04] MEDS ORDERED: QUELICIN (DOSE) ONE (08:14)
[2016-12-04] MEDS ORDERED: LR 2,000 ML ONE (08:14)
[2016-12-04] MEDS ORDERED: XYLOCAINE-MPF 2% ONE (08:14)
[2016-12-04] MEDS ORDERED: OFIRMEV 1000 MG/ISOTONIC SOLN 100 ML ONE (08:14)
[2016-12-04] MEDS ORDERED: ZOFRAN ONE (08:14)
[2016-12-04] MEDS ORDERED: ZEMURON ONE (08:14)
[2016-12-04] MEDS ORDERED: ROBINUL ONE (08:14)
[2016-12-04] MEDS: FLONASE NAS SCH (08:55)
[2016-12-04] MEDS: CARDIZEM CD PO SCH (08:56)
[2016-12-04] MEDS: VITAMIN D PO SCH (08:56)
[2016-12-04] MEDS: LASIX PO SCH (08:56)
[2016-12-04] MEDS: IMDUR PO SCH (08:57)
[2016-12-04] MEDS: LOPRESSOR PO SCH (08:57)
[2016-12-04] MEDS: SENOKOT PO SCH (08:57)
[2016-12-04] MEDS: KLOR-CON PO SCH ×3 (08:57→23:09)
[2016-12-04] MEDS: THERA M PLUS PO SCH (08:57)
[2016-12-04] MEDS: CLINIMIX E 4.25%-5% SOLUTION 1,000 ML IV SCH ×2 (08:59→19:49)
[2016-12-04] MEDS: CLARITIN PO SCH (09:00)
[2016-12-04] MEDS ORDERED: TYLENOL PO PRN (10:42)
--- NOTE | 2016-12-04 11:29 | PROGRESS NOTE ---
DATE: 12/04/2016 Ms. Maguire is now postop day 3 from an extended open right hemicolectomy for ischemic cecum and also a mid transverse colon cancer. We performed a distal ileum to distal transverse double-layer sewn anastomosis. She had a large arc of Riolan artery which had to be taken. It came off the middle colic vessels so that we could do the proper cancer surgery. I hope that she has a good enough flow to her remaining colon to not have this segment ischemic. Her postoperative convalescence has been good thus far. This morning, she is awake, cooperative. Her heart rate is 87, blood pressure 129/65, O2 saturation 97%. She has no work of breathing. She has a Shrestha catheter tube in place and her urine output has been good. She is afebrile, on no antibiotics. Her midline incision is dressed. Her abdomen is slightly distended. Her hematocrit is 30%, white blood cell count is 14. All electrolytes are within normal limits. She is taking some bites only of meals. She is on a full liquid diet. PLAN: We will remove her Shrestha tomorrow. I have changed some IV medications to p.o. She may have to go to rehab prior to going back home and social worker masters has been consulted by Dr. Newman. Overall, I feel she is doing well thus far.
[2016-12-04] MEDS: NEURONTIN PO SCH ×2 (19:50→23:09)
[2016-12-04] MEDS: NORCO-5 PO PRN (19:51)
[2016-12-04] MEDS: LOFIBRA PO SCH (19:51)
[2016-12-05] MEDS: CLINIMIX E 4.25%-5% SOLUTION 1,000 ML IV SCH ×3 (01:11→18:32)
[2016-12-05] MEDS ORDERED: LASIX IV ONE ×2 (06:50→11:27)
[2016-12-05] MEDS ORDERED: PROTONIX PO SCH (07:00)
--- NOTE | 2016-12-05 07:28 | PROGRESS NOTE ---
DATE: 12/05/2016 SUBJECTIVELY: Ms. Maguire is not doing well this morning. The patient was restless last night and delirious. Some confusion. Patient had swelling of her right arm, no chest pain. She was short of breath. The patient did have some diet loose bowel movement. No high-grade fever. No typical chest pain. History part was limited. OBJECTIVE: Vital Signs: Reviewed which look stable. Lungs: Bibasilar crepitations. Heart: S1 and S2 heard. Abdomen: Soft, mild diffuse tenderness. The patient does have swelling of the right upper limb, most likely due to extravasation of IV. Extremities: No acute DVT of the legs. RADIOGRAPHIC TECHNOLOGIST: Alert, awake, but minimally confused. CONSIDERATION: Delirium. I am going to check appropriate labs. Chest x-ray, blood gas. Status post colectomy for colon cancer. Blood-loss anemia. We stopped the IV for extravasation and going to start new IV. Family requested DNR 1 as per patient wishes. Continue rest of the treatment and close observation. overall prognosis fair to guarded. Family is aware.
[2016-12-05] MEDS: LOVENOX SUBQ SCH (08:16)
[2016-12-05 08:48] LABS: ALLEN TEST YES; BE 1.6 mmoll (-3.0-3.0); BLOOD TYPE ARTERIAL; DRAW SITE R RADIAL; METHB 1.7 % (0.0-1.5); MODALITY CANNULA; O2(CT) 12.9 mL/dL (15.0-23.0); PCO2(98.6) 43 mmHg (35-45); PO2(98.6) 72 mmHg (60-100); SAMPLE BLOOD; SAO2 96.2 % (95.0-100.0); THB 9.8 g/dL (11.5-17.4)
[2016-12-05 09:38] LABS: BASO% 0.1 % (0.0-0.8); EOS# 0.01 X1000 (0.0-0.7); HEMATOCRIT 31.6 % (37.0-47.0); IMM GRAN# 0.16 X1000 (0.0-0.04); IMM GRAN% 0.5 % (0.0-0.5); LYMPH# 0.52 X1000 (1.2-3.4); LYMPH% 1.7 % (20.5-51.1); MANUAL DIFF NEEDED? YES; MCH 25.3 PG (27-31); MCHC 31.6 g/dL (33-37); MONO# 1.96 X1000 (0.11-0.59); MONO% 6.4 % (1.7-9.3); NEUT% 91.3 % (42.2-75.2); PLT 407 X1000 (130-400); RBC 3.95 XMIL (4.2-5.4)
[2016-12-05 10:07] LABS: BANDS 6 % (0-1); LYMPHS 2 % (21-51); MONO 8 % (1-9)
[2016-12-05 10:09] LABS: HYPOCHROM 1+
[2016-12-05 10:10] LABS: TARGET CELLS 1+
[2016-12-05 10:15] LABS: ALBUMIN 2.4 g/dL (3.5-5.0); CALCIUM 9.5 mg/dL (8.8-10.2); MAGNESIUM 1.9 mg/dL (1.5-2.7); POTASSIUM 4.6 mmol/L (3.5-5.1); TOTAL BILIRUBIN 0.48 mg/dL (0.20-1.00); TOTAL PROTEIN 5.9 g/dL (6.3-8.3)
--- NOTE | 2016-12-05 10:53 | Diag Imaging Result Document ---
PROCEDURE NAME: CHEST-PORTABLE - 12/05/2016 PORTABLE CHEST X-RAY, 12/05/2016: COMPARISON: 11/20/2016. FINDINGS: There is worsening pulmonary vascular congestion and new diffuse bilateral interstitial infiltrates compatible with pulmonary edema. Stable focal infiltrate at the right hilum and right upper lobe. Heart size remains top normal. There are small pleural effusions. IMPRESSION: Severe worsening from prior.
[2016-12-05] MEDS ORDERED: ROCEPHIN 1 GM/NS 50 ML IV ONE (11:25)
--- NOTE | 2016-12-05 11:29 | PROGRESS NOTE ---
DATE: 12/05/2016 SUBJECTIVE: This patient has undergone colectomy for ischemic colitis and colon cancer on 12/01/2016. The patient was doing good on Sunday and Sunday, but apparently last night she was not doing well, she got more and more confused. She did not develop any fever, although she had some low-grade fever. The family said that at night she was very confused. She was having bowel movements. She was drinking liquids, but currently she is unable to eat any kind of food, even Ensure she is refusing. Because of confusion, she is probably unable to complain of any pain. Apparently, she had been drinking about almost 1500 to 1600 mL of liquids yesterday and her output is quite good, and had soft liquid stools yesterday and today. PHYSICAL EXAMINATION: General: The patient seems to be quite confused, seems to be somewhat lethargic. Lungs: Reveal a few crackles in both bases. Abdomen: Remains postop. There is diffuse tenderness in the abdomen. LABORATORY DATA: Yesterday WBC count was 14.06, hemoglobin 9.6, hematocrit 30.4. Today, the WBC count went up to 30.57, hemoglobin 10, hematocrit 31.6. The platelet count is 407. Sodium 125, potassium 3.6, chloride is 90, CO2 is 22. BUN is 22, creatinine 1.1. Glucose is 127. Calcium is 9.5. ALT and AST are all normal. Total protein is 5.9, albumin is 2.4. Troponin is 0.184, which seems to be elevated. Carcinoembryonic antigen on 12/03 was 8.1. IMAGING: Chest x-ray showed worsening of pulmonary vascular congestion with new diffuse bilateral interstitial infiltrates compatible with pulmonary edema. Focal infiltrate in the right hilum and right upper lobe. IMPRESSION: 1. Sepsis. 2. Acute pulmonary edema. 3. I believe the confusion is secondary to what is going on with her, although postop she was doing well for a couple of days. Unfortunately, there is a setback. Dr. Newman is aware of all this, and IV Lasix had been ordered. I reassured the family. 4. The patient's code status is decided to be DNR. [facility]
[2016-12-05] MEDS: LASIX PO SCH (11:37)
[2016-12-05] MEDS: LEVAQUIN 500 MG/D5W 100 ML IV SCH (12:41)
[2016-12-05] MEDS: FLONASE NAS SCH (14:13)
[2016-12-05] MEDS: CLARITIN PO SCH (14:13)
[2016-12-05] MEDS: CARDIZEM CD PO SCH (14:13)
[2016-12-05] MEDS: LOPRESSOR PO SCH (14:14)
[2016-12-05] MEDS: KLOR-CON PO SCH ×2 (14:14→21:38)
[2016-12-05] MEDS: IMDUR PO SCH (14:14)
[2016-12-05] MEDS: SENOKOT PO SCH (14:14)
[2016-12-05] MEDS: VITAMIN D PO SCH (14:15)
[2016-12-05] MEDS: THERA M PLUS PO SCH (14:15)
[2016-12-05] MEDS ORDERED: ALBUMIN 25% ONE (14:52)
[2016-12-05] MEDS ORDERED: AMIDATE ONE (16:00)
[2016-12-05] MEDS ORDERED: PHENERGAN IV PRN (17:11)
[2016-12-05] MEDS ORDERED: SODIUM CHLORIDE 0.9% INJ PRN (17:11)
[2016-12-05] MEDS ORDERED: NS 1,000 ML IV SCH (17:15)
[2016-12-05] MEDS ORDERED: NS 1,000 ML ONE (17:16)
--- NOTE | 2016-12-05 17:41 | OPERATIVE NOTE ---
PROCEDURE DATE: 12/05/2016 PREOPERATIVE DIAGNOSIS: Acute abdomen in the postoperative period of an extended right hemicolectomy. POSTOPERATIVE DIAGNOSIS: Ischemic colon. PRINCIPAL PROCEDURE: Total abdominal colectomy with end ileostomy. SURGEON: Roberta Luna MD BOAT FUELER: Gill Esquivel ANESTHESIA: General estimated. BLOOD LOSS: 150 mL. DRAINS: None. INDICATIONS: Liseth Maguire is an 86-year-old white female who 4 days ago, I performed an extended right hemicolectomy for not only ischemic cecum, but also colon cancer in the mid transverse colon. I had to take the middle colic artery to do the cancer part of the operation. We did an end ileum to distal transverse colon anastomosis and she was doing well postoperatively, but over the last 12 hours she has become confused and had increasing abdominal pain and her white blood cell count became elevated to 30. We felt that she had developed an acute abdomen and urgent reoperation was recommended. FINDINGS: The remainder of her sigmoid colon was ischemic including the distal transverse, the splenic flexure, the descending colon and sigmoid colon. We removed the rest of her abdominal colon and left her rectum in hopes that the superior rectal arteries will keep the rectal stump viable. We did an end ileostomy. The sewn distal ileum to transverse colon anastomosis was intact without evidence of leaking. We felt it was the ischemic colon that was making her ill. DESCRIPTION OF PROCEDURE: The patient was brought to the operating room, placed supine, received general anesthesia, and was intubated. An orogastric tube was placed. Her abdomen was prepped and draped within a sterile field. We removed the skin clips. We used an Ioban on the skin and then we reopened the midline incision using a 10 blade scalpel. This incision was carried down through the subcutaneous tissue to our fascia and we removed the Maxon stitch, and entered the abdomen. We explored the abdomen with the findings above. We used a TED stapler to come across the ileum just proximal to our sewn anastomosis and we used a TA stapler to come across the proximal rectum at the sacral promontory. We then used cautery to mobilize the sigmoid and descending colon. We also carefully mobilized the splenic flexure using mostly cautery. We used Julisa clamps to come across the remaining mesentery of the distal transverse and descending and sigmoid colons. This whole area of colon was ischemic down to the rectum. We suture ligated using 2-0 silk ties the vessels along the mesentery as we encountered them. The specimen was removed. We decided to perform an end ileostomy. We created a small circular incision in the skin just below the umbilicus on the right and we transected the anterior rectus fascia. We split the rectus muscle and transected the posterior rectus fascia and brought out the distal ileum through this defect onto the skin. We placed the bowel back in its anatomically correct position. We had thoroughly irrigated out the abdomen with warm saline and removed it with suction. We closed the midline incision in layers. First layer was a running #1 Vicryl stitch to close the peritoneum. We closed the fascia with a running #1 Maxon stitch. We closed the skin with a skin clip special education para professional and then we matured the ileostomy like a Annita ileostomy with interrupted 3-0 Vicryl stitches. We felt that the ileostomy was viable and the midline wound was dressed as was the ileostomy. She will go to the recovery room and then the ICU critically ill. I spoke with her family after the procedure.
[2016-12-05] MEDS: OFIRMEV 1000 MG/ISOTONIC SOLN 100 ML IV SCH ×2 (18:02→23:18)
[2016-12-05] MEDS ORDERED: SODIUM BICARBONATE 8.4% 150 MEQ in D5W 1,000 ML IV SCH (18:15)
[2016-12-05] MEDS: DIPRIVAN 1% 100 ML IV SCH ×2 (18:19→23:17)
[2016-12-05 18:34] LABS: ALLEN TEST NO; BE 1.7 mmoll (-3.0-3.0); BLOOD TYPE ARTERIAL; DRAW SITE R BRACHIAL; METHB 1.7 % (0.0-1.5); O2(CT) 12.8 mL/dL (15.0-23.0); PCO2(98.6) 42 mmHg (35-45); PO2(98.6) 77 mmHg (60-100); SAMPLE BLOOD; SAO2 97.4 % (95.0-100.0); SRATE 12 BPM; THB 9.6 g/dL (11.5-17.4); TVOL 680 mL; pH(98.6) 7.41 (7.35-7.45)
[2016-12-05 18:35] LABS: MODALITY VENTILATOR
--- NOTE | 2016-12-05 18:40 | CONSULTATION ---
DATE OF CONSULTATION: 12/05/2016 REQUESTING PHYSICIAN: Dr. Erlin Luna. REASON FOR CONSULTATION: Respiratory failure after 2nd abdominal surgery. HISTORY OF PRESENT ILLNESS: Ms Maguire is an 86-year-old white female who was admitted to the hospital with abdominal pain and rectal bleeding. A GI evaluation was performed by Dr. Cavanaugh which revealed a transverse colon malignancy with deep ulceration and ischemic colitis involving the right colon. The patient was taken to the operating room by Dr. Luna on 12/01/2016 and underwent a cholecystectomy with right hemicolectomy. Patient initially did well but subsequently developed confusion and abdominal tenderness. The patient went back to the operating room today and underwent a total abdominal colectomy with end ileostomy due to ischemia of the remaining colon and patient received 2 L of fluids in the operating room and has now been transferred back to the ICU. PAST MEDICAL HISTORY/PROBLEM LIST: 1. Coronary artery disease. 2. Hypertension. 3. Hypothyroidism. 4. Gastroesophageal reflux disease. 5. Abdominal aortic aneurysm. 6. Cardiac dysrhythmia. 7. Peripheral neuropathy. 8. Dyslipidemia. 9. Chronic pain syndrome. SOCIAL HISTORY: Nonsmoker. No alcohol use. The patient has been performing her activities of daily living prior to this admission. FAMILY HISTORY: Noncontributory current presentation. REVIEW OF SYSTEMS: Cannot be performed. PHYSICAL EXAMINATION: General: Reveals a elderly white female who appears comfortable on mechanical ventilation. Vital signs: Blood pressure 108/68, heart rate 103 and regular, respiratory rate 12, oxygen saturation % on supplemental oxygen. HEENT: Pupils are equal but sluggish. Oropharynx evaluation is limited with endotracheal tube in place. Neck: Supple. Chest: Reveals scattered rhonchi bilaterally. Cardiac Exam: Distant heart sounds. Normal S1, normal S2. Abdomen: Soft with surgical dressings in place. The ostomy appears pink and viable. Extremities: Warm to the touch. LABORATORIES: Chest x-ray reveals endotracheal tube in good position. There is bilateral pulmonary edema and infiltrate in the right upper lobe cannot be ruled out. Arterial blood gas is pending. Electrolytes this morning, sodium 125, potassium 4.6, chloride 90, bicarbonate 22, anion gap 13, BUN 22, creatinine 1.1. Albumin is 2.4. White blood count this morning 30,000, hemoglobin 10.0, platelet count 407,000. IMPRESSION: An 86-year-old status post 2nd abdominal surgery with respiratory failure, leukocytosis, pulmonary edema, hypoxemic respiratory failure, protein calorie malnutrition. RECOMMENDATIONS: 1. Continue full ventilatory support through the evening. 2. Will initiate ProcalAmine as a temporizing bridge for nutrition. 3. Propofol for nutrition and for sedation. 4. Collect sputum for C and S. 5. Initiate bronchodilators for bronchial hygiene. 6. Routine gastric acid suppression. 7. Agree with current code status as do not resuscitate level 1. If she does not continue to improve over the next several days to a week, additional end of life discussions will be held with the family.
[2016-12-05] MEDS: DUONEB (A & A) INH SCH ×2 (19:37→23:36)
[2016-12-05] MEDS: CARDIZEM 100 MG/NS 100 ML IV SCH (21:26)
[2016-12-05] MEDS: LOFIBRA PO SCH (21:39)
[2016-12-05] MEDS: NEURONTIN PO SCH (21:39)
[2016-12-05] MEDS: MORPHINE IV PRN (21:45)
[2016-12-06] MEDS: DUONEB (A & A) INH SCH ×6 (04:01→23:14)
[2016-12-06] MEDS: DIPRIVAN 1% 100 ML IV SCH ×5 (04:14→21:51)
[2016-12-06] MEDS: CLINIMIX E 4.25%-5% SOLUTION 1,000 ML IV SCH ×2 (04:19→13:51)
[2016-12-06 05:30] LABS: ALLEN TEST YES; BE 7.8 mmoll (-3.0-3.0); BLOOD TYPE ARTERIAL; DRAW SITE R RADIAL; METHB 2.2 % (0.0-1.5); O2(CT) 13.5 mL/dL (15.0-23.0); PCO2(98.6) 34 mmHg (35-45); PO2(98.6) 181 mmHg (60-100); SAMPLE BLOOD; SAO2 98.8 % (95.0-100.0); SRATE 12 BPM; THB 9.7 g/dL (11.5-17.4); TVOL 680 mL
[2016-12-06 05:31] LABS: pH(98.6) 7.56 (7.35-7.45)
[2016-12-06 05:32] LABS: MODALITY VENTILATOR
[2016-12-06] MEDS: OFIRMEV 1000 MG/ISOTONIC SOLN 100 ML IV SCH ×4 (06:03→23:21)
[2016-12-06] MEDS: LOVENOX SUBQ SCH (06:03)
[2016-12-06 06:07] LABS: HEMOGLOBIN 9.1 g/dL (12.0-16.0); MCH 25.6 PG (27-31); MCHC 31.4 g/dL (33-37); MCV 81.5 FL (81-99); MPV 9.9 FL (7.4-10.4); RBC 3.56 XMIL (4.2-5.4)
[2016-12-06 06:28] LABS: AGAP 11; ALBUMIN 1.7 g/dL (3.5-5.0); ALKALINE PHOSPHATASE 59 U/L (32-104); BUN 22 mg/dL (8-22); CALCIUM 8.2 mg/dL (8.8-10.2); CHLORIDE 90 mmol/L (98-107); COSMO 260; GOT 23 U/L (10-30); GPT 13 U/L (10-36); POTASSIUM 4.2 mmol/L (3.5-5.1); SODIUM 125 mmol/L (136-145); TCO2 24 mmol/L (25-35); TOTAL BILIRUBIN 0.26 mg/dL (0.20-1.00); TOTAL PROTEIN 4.2 g/dL (6.3-8.3)
[2016-12-06 06:29] LABS: MAGNESIUM 1.6 mg/dL (1.5-2.7)
[2016-12-06 06:44] LABS: FERRITIN 140 ng/mL (13-150)
[2016-12-06 07:04] LABS: IRON SATURATION 6 %; TIBC 146 ug/dL
[2016-12-06 07:19] LABS: TOTAL IRON 9 ug/dL (49-151); UNBOUND IRON 137 ug/dL (112-346)
--- NOTE | 2016-12-06 08:00 | Diag Imaging Result Document ---
PROCEDURE NAME: CHEST-PORTABLE - 12/06/2016 SINGLE FRONTAL RADIOGRAPH OF THE CHEST: COMPARISON: 12/05/2016. FINDINGS: ET tube is in stable position. There appear to be small bilateral effusions that are unchanged. Pulmonary venous congestion and interstitial prominence at the lower lung zones, more prominent on the right, are essentially stable. No new consolidations identified. Cardiac silhouette is stable. IMPRESSION: Stable chest.
[2016-12-06] MEDS ORDERED: NORCURON ONE (08:08)
[2016-12-06] MEDS ORDERED: OFIRMEV 1000 MG/ISOTONIC SOLN 100 ML ONE (08:08)
[2016-12-06] MEDS ORDERED: XYLOCAINE-MPF 2% ONE (08:08)
[2016-12-06] MEDS ORDERED: LR 2,000 ML ONE (08:08)
[2016-12-06] MEDS ORDERED: ANESTHESIA PB SET 88 IN 5742 ONE (08:08)
[2016-12-06] MEDS ORDERED: QUELICIN (DOSE) ONE (08:08)
[2016-12-06] MEDS ORDERED: VENTOLIN HFA ONE (08:08)
[2016-12-06] MEDS: PROTONIX IV SCH (08:29)
[2016-12-06] MEDS: SODIUM CHLORIDE 0.9% INJ SCH (08:30)
--- NOTE | 2016-12-06 08:33 | Diag Imaging Result Document ---
PROCEDURE NAME: CHEST-PORTABLE - 12/05/2016 SINGLE FRONTAL RADIOGRAPH OF THE CHEST: COMPARISON: 12/05/2016. FINDINGS: There is a newly placed ET tube. The tip projects over the trachea and above the jani at about the T5 level. Bilateral infiltrates suggesting pulmonary edema are essentially stable. There is suggestion of pulmonary venous congestion that is similar to the previous study given differences in inspiration. Cardiac silhouette is stable. IMPRESSION: Interval placement of ET tube. Essentially stable chest, otherwise.
[2016-12-06] MEDS: CLARITIN PO SCH (08:35)
[2016-12-06] MEDS: CARDIZEM CD PO SCH (08:35)
[2016-12-06] MEDS: IMDUR PO SCH (08:39)
[2016-12-06] MEDS: FLONASE NAS SCH (08:39)
[2016-12-06] MEDS: LOPRESSOR PO SCH (08:40)
[2016-12-06] MEDS: LASIX PO SCH (08:40)
[2016-12-06] MEDS: KLOR-CON PO SCH (08:40)
[2016-12-06] MEDS: SENOKOT PO SCH (08:40)
[2016-12-06] MEDS: THERA M PLUS PO SCH (08:41)
[2016-12-06] MEDS: VITAMIN D PO SCH (08:41)
[2016-12-06] MEDS ORDERED: SODIUM BICARBONATE IV SCH ×2 (09:30→10:53)
[2016-12-06] MEDS ORDERED: SODIUM PHOSPHATE IV SCH ×2 (09:30→10:53)
[2016-12-06] MEDS ORDERED: 1/2 NS IV SCH ×2 (09:30→10:53)
[2016-12-06] MEDS ORDERED: D5 IV SCH ×2 (09:30→10:53)
[2016-12-06] MEDS: SOLU-CORTEF IV SCH ×2 (09:43→20:40)
[2016-12-06] MEDS: ALBUMIN 25% IV SCH ×2 (09:43→16:40)
--- NOTE | 2016-12-06 10:32 | PROGRESS NOTE ---
DATE: 12/06/2016 SUBJECTIVE: Ms. Maguire is doing fair. The patient is still critically ill. Yesterday, the patient had leukocytosis, pulmonary edema, possible pneumonia. The patient was started on IV antibiotics. We did septic workup. We informed Dr. Luna. We entertained the possibility of ischemic bowel. 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 The patient is on vent. The patient is sedated. Heart rate was elevated. We started her on low-dose Cardizem drip. I discussed her operative findings and procedure with Dr. Luna yesterday. OBJECTIVE: Her vital signs reviewed. Neck supple. No JVD. Lungs: Few basal crepitations. CVS: S1 and S2. Tachycardia. Abdomen soft. The patient does have ileostomy with seems to be functioning. Extremities: No cyanosis, clubbing. The patient does have swelling of the right upper limb most likely due to extravasation. COMPENSATION ADMINISTRATOR: The patient is sedated. LABORATORY DATA: Her lab data done today: Leukocyte count 13.04, hemoglobin 9.1, hematocrit 29. Blood gas: pH 7.56, pCO2 of 34, PO2 of 181. The patient seems to have metabolic alkalosis and respiratory alkalosis. Electrolytes did reveal hyponatremia. B12, folate, cortisol level reviewed. CONSIDERATION: 1. Ischemic bowel, status post total colectomy. 2. Cancer of the colon. 3. Pneumonia. 4. Pulmonary edema. 5. Abdominal aortic aneurysm. Overall prognosis fair to guarded. Family is aware.
[2016-12-06] MEDS: ROCEPHIN 1 GM/NS 50 ML IV SCH (11:36)
--- NOTE | 2016-12-06 11:48 | PROGRESS NOTE ---
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 Yesterday, her condition deteriorated and Dr. Luna took her back to the OR and found out that the rest of the colon also is ischemic. Therefore, that part of the colon was done and ileostomy was performed with the rectal stump remaining. Hopefully that part will not become necrotic.. She is on the vent right now, and on the vent her condition remained to be stable. She is on Diprivan infusions. VITAL SIGNS: The temperature is 98.0 degrees, pulse rate is 110, respiratory rate is 18, 88 on the vent. The blood pressure is 147/93. The ileostomy bag is emptying dark brown stool. LABORATORY DATA: White blood cell count came down to 13.04, hemoglobin 9.1, hematocrit 29. The platelet count is 333. Sodium 125, potassium 4.2, chloride 90, CO2 is 24, BUN is 22, creatinine 0.8. Glucose is 191, calcium 8.2, total protein 4.2 and albumin 1.7. The patient's prognosis is poor because of her advanced age, and also the underlying vascular problems. Gastroenterology will standby for now [facility]
[2016-12-06] MEDS: LEVAQUIN 500 MG/D5W 100 ML IV SCH (11:58)
--- NOTE | 2016-12-06 15:06 | PROGRESS NOTE ---
DATE: 12/06/2016 INDICATIONS: Ms. Maguire is an 86-year-old white female who has undergone her 2nd major intraabdominal operation during this hospitalization. She is now postop day 1 from a completion total abdominal colectomy for ischemic bowel. Last Juan she underwent an extended right hemicolectomy for ischemic cecum and a midtransverse colon cancer. She is in the ICU and she remains intubated and she now has a ileostomy. I have asked Dr. Raudel Guzman to help with critical care. OBJECTIVE: Her heart rate is 104-111, blood pressure 144/66. Hematocrit is 29%. She is receiving IV diltiazem for blood pressure. She is on the ventilator at 40% FiO2, no PEEP and 680 tidal volume with a rate of 8. Her O2 saturation 99%. She is on IV Diprivan for sedation. She does have peripheral swelling. She has a Shrestha catheter tube in place. Her urine output seems to be adequate. Her BUN and creatinine are 22 and 0.8. Her sodium is 125, chloride is 90. Base excess is 7.8. Chest x-ray shows small bilateral pleural effusions. There is some pulmonary venous congestion. Her ileostomy appears to be viable. Her midline incision is dressed. She is receiving some peripheral nutrition. PLAN: Will continue supportive care which includes the ventilator, IV fluids. She is on Diprivan for sedation. She is also on IV antibiotics. I spoke with her daughter at the bedside.
[2016-12-06 16:26] LABS: INR 1.2; PROTIME 12.7 Seconds (9.2-11.7)
[2016-12-06] MEDS: CARDIZEM 100 MG/NS 100 ML IV SCH (16:40)
[2016-12-06] MEDS: NEURONTIN PO SCH (20:40)
[2016-12-06] MEDS ORDERED: LASIX IV ONE (22:00)
[2016-12-06] MEDS: LOFIBRA PO SCH (22:25)
[2016-12-07] MEDS: ALBUMIN 25% IV SCH (00:58)
[2016-12-07] MEDS: DIPRIVAN 1% 100 ML IV SCH ×4 (01:22→21:48)
[2016-12-07] MEDS: DUONEB (A & A) INH SCH ×6 (03:02→23:01)
[2016-12-07] MEDS: CLINIMIX E 4.25%-5% SOLUTION 1,000 ML IV SCH ×2 (03:42→08:54)
[2016-12-07 04:28] LABS: ALLEN TEST YES; BE 12.7 mmoll (-3.0-3.0); BLOOD TYPE ARTERIAL; DRAW SITE R RADIAL; METHB 1.7 % (0.0-1.5); O2(CT) 12.5 mL/dL (15.0-23.0); PCO2(98.6) 32 mmHg (35-45); PO2(98.6) 158 mmHg (60-100); SAMPLE BLOOD; SAO2 99.2 % (95.0-100.0); SRATE 8 BPM; TVOL 680 mL
[2016-12-07 04:29] LABS: MODALITY VENTILATOR
[2016-12-07 04:30] LABS: pH(98.6) 7.64 (7.35-7.45)
[2016-12-07] MEDS: CARDIZEM 100 MG/NS 100 ML IV SCH ×2 (04:52→14:12)
[2016-12-07 05:18] LABS: HEMOGLOBIN 8.2 g/dL (12.0-16.0); MCH 25.4 PG (27-31); MCHC 31.5 g/dL (33-37); MCV 80.5 FL (81-99); MPV 9.9 FL (7.4-10.4); RBC 3.23 XMIL (4.2-5.4)
[2016-12-07 05:31] LABS: AGAP 10; ALBUMIN 2.8 g/dL (3.5-5.0); ALKALINE PHOSPHATASE 41 U/L (32-104); BUN 20 mg/dL (8-22); CALCIUM 8.1 mg/dL (8.8-10.2); CHLORIDE 91 mmol/L (98-107); COSMO 269; GOT 12 U/L (10-30); GPT 7 U/L (10-36); SODIUM 131 mmol/L (136-145); TCO2 30 mmol/L (25-35); TOTAL BILIRUBIN 0.29 mg/dL (0.20-1.00); TOTAL PROTEIN 4.4 g/dL (6.3-8.3)
[2016-12-07 05:37] LABS: MAGNESIUM 1.7 mg/dL (1.5-2.7)
[2016-12-07] MEDS: LOVENOX SUBQ SCH ×2 (05:59→06:24)
[2016-12-07] MEDS: OFIRMEV 1000 MG/ISOTONIC SOLN 100 ML IV SCH ×3 (05:59→18:11)
--- NOTE | 2016-12-07 06:18 | PROGRESS NOTE ---
DATE: 12/07/2016 SUBJECTIVE: Ms. Maguire is postop day 2 for total abdominal colectomy. Patient is on vent. Patient is doing fair. Last night, patient had atrial fibrillation with rapid ventricular response. The patient is on Cardizem drip. The patient is not communicating. Ileostomy functioning well. The patient is on Diprivan. No high-grade fever or chills. No nausea or vomiting. OBJECTIVE: Vital signs: Reviewed. Neck: Supple. No JVD. Lungs: Bibasilar crepitations. Heart: S1 and S2. Irregularly irregular, 2/6 systolic murmur at the apex. Abdomen: Soft, globular. Ileostomy functioning well. Extremities: No cyanosis, clubbing. No acute DVT. LAY OUT FORMER: Patient is on ventilator and sedated. ASSESSMENT/CONSIDERATIONS: Patient admitted with acute blood-loss anemia. Colonoscopy revealed colon cancer and ischemic bowel. The patient underwent surgery. Extended right hemicolectomy. The patient did well initially, but then patient's clinical condition deteriorated. Developed pulmonary edema and possible bronchopneumonia. The patient underwent surgery requiring total colectomy and ileostomy. Patient is on vent. Dr. Guzman helping us managing patient. Appreciate Dr. Luna's help managing patient. 1. Her other problem includes acute blood-loss anemia. 2. Atrial fibrillation with rapid ventricular response. 3. Coronary artery disease. LAB DATA: Done today, hemoglobin 8.2, hematocrit 26, WBC count 8.88. Electrolytes: Sodium 131, potassium 4, blood sugar 158. Phosphorus was low, phosphorus 2.7, magnesium 1.7. Blood gas pH 7.64, pCO2 32. The patient's daughter was present. Overall plan and prognosis discussed. Dr. Nelson will see the patient in my absence.
[2016-12-07] MEDS ORDERED: DIAMOX IV ONE ×2 (06:22→14:30)
--- NOTE | 2016-12-07 06:26 | Diag Imaging Result Document ---
PROCEDURE NAME: CHEST-PORTABLE - 12/07/2016 PORTABLE CHEST: COMPARISON: Compared to 12/06/2016. FINDINGS: No change in the position of the endotracheal tube. This is located 1 cm above the jani. There are infiltrates and atelectasis in the lower lungs. These are more dense in the left base than the right. The appearance is fairly similar to that of the prior exam. The patient also has small pleural effusions. IMPRESSION: No interval improvement.
--- NOTE | 2016-12-07 07:09 | EKG Report ---
Test Performed on : 12/07/2016 03:48:34 AM Test Reason : AFIB RVR Blood Pressure : / mmHG Vent. Rate : 145 BPM Atrial Rate : 187 BPM P-R Int : 000 ms QRS Dur : 076 ms QT Int : 330 ms P-R-T Axes : 000 021 193 degrees QTc Int : 512 ms Atrial fibrillation. with rapid ventricular response. ST & T wave abnormality, consider inferior ischemia ST & T wave abnormality, consider anterolateral ischemia Abnormal ECG When compared with ECG of November 29, 2016- Atrial fibrillatrion has replaced a NSR ST and T wave abnormalities are new Confirmed by Shiraz Bergman MD ([id number]) on 12/07/2016 10:29:38 PM
[2016-12-07] MEDS: PROTONIX IV SCH (07:54)
[2016-12-07] MEDS: SODIUM CHLORIDE 0.9% INJ SCH (07:54)
[2016-12-07] MEDS: CARDIZEM CD PO SCH (08:07)
[2016-12-07] MEDS: VITAMIN D PO SCH (08:07)
[2016-12-07] MEDS: THERA M PLUS PO SCH (08:07)
[2016-12-07] MEDS: SENOKOT PO SCH (08:08)
[2016-12-07] MEDS: LASIX PO SCH (08:08)
[2016-12-07] MEDS: LOPRESSOR PO SCH (08:08)
[2016-12-07] MEDS: IMDUR PO SCH (08:09)
[2016-12-07] MEDS: FLONASE NAS SCH (08:09)
[2016-12-07] MEDS: CLARITIN PO SCH (08:09)
[2016-12-07] MEDS: SOLU-CORTEF IV SCH ×3 (08:53→22:31)
--- NOTE | 2016-12-07 08:56 | PROGRESS NOTE ---
DATE: 12/07/2016 Ms. Maguire is now postop day 3 from a completion total abdominal colectomy for ischemic bowel with end ileostomy. Her ileostomy had some output and seems to be viable. Her abdomen is flat. Hemodynamically, she has been satisfactory. She is still on the ventilator. Plans are for a PICC line today. Her heart rate is 108 but it looks like she is in atrial fibrillation. She is on IV diltiazem. Her blood pressure is 103/47. O2 saturation 99%. She is on a ventilator at 30% FiO2 with an ABG of 7.64, PaO2 of 158, pCO2 of 32. Her hematocrit is 26%. She has a Shrestha catheter tube in place. Her BUN and creatinine are 20 and 0.6. Urine output is adequate. She does have some peripheral edema. She is afebrile on IV Rocephin. Her chest x-ray shows some infiltrates bilaterally. She is on peripheral Clinimix and on IV propofol. We will ask the nurses to place a feeding tube into her stomach so that we can begin trying to feed her more naturally and improve her nutrition.
[2016-12-07] MEDS ORDERED: VENOFER IV ONE (09:01)
--- NOTE | 2016-12-07 09:35 | Diag Imaging Result Document ---
PROCEDURE NAME: CHEST-PORTABLE - 12/07/2016 PORTABLE CHEST AND ABDOMEN: COMPARISON: Compared to study performed earlier. Interval placement of a nasogastric tube. This lies along the greater curvature of the stomach inferiorly. There are midline skin samantha. The patient has scoliosis. IMPRESSION: Nasogastric tube enters the stomach. MTDD
[2016-12-07] MEDS ORDERED: VENOFER 300 MG in NS 250 ML IV ONE (10:00)
[2016-12-07] MEDS: LASIX IV SCH ×2 (10:19→16:24)
[2016-12-07] MEDS ORDERED: NS 250 ML ONE (12:00)
[2016-12-07] MEDS: ROCEPHIN 1 GM/NS 50 ML IV SCH (12:21)
[2016-12-07] MEDS: LEVAQUIN 500 MG/D5W 100 ML IV SCH (13:23)
--- NOTE | 2016-12-07 15:29 | Diag Imaging Result Document ---
PROCEDURE NAME: CHEST-PORTABLE - 12/07/2016 PORTABLE CHEST X-RAY: TIME: 1500 hours. COMPARISON: 05:00 hours. FINDINGS: Stable endotracheal tube in good position. There is a feeding tube off the bottom of the film presumably stable from prior. There is a right PICC line in good position with the catheter tip in the mid SVC. There is some decrease in the pleural effusions, particularly on the right, with persistent cardiomegaly and some interstitial pulmonary edema as well as pulmonary vascular congestion. IMPRESSION: 1. No complication from line placement. 2. Improvement in aeration of the lungs.
[2016-12-07] MEDS ORDERED: NS 500 ML IV SCH (15:45)
[2016-12-07] MEDS: LOFIBRA PO SCH (22:30)
[2016-12-07] MEDS: NEURONTIN PO SCH (22:30)
[2016-12-08] MEDS: LASIX IV SCH ×3 (01:28→17:03)
[2016-12-08] MEDS: CLINIMIX E 4.25%-5% SOLUTION 1,000 ML IV SCH ×4 (02:07→21:29)
[2016-12-08] MEDS: DIPRIVAN 1% 100 ML IV SCH ×2 (02:21→05:37)
[2016-12-08] MEDS: DUONEB (A & A) INH SCH ×6 (03:25→23:18)
[2016-12-08] MEDS: CARDIZEM 100 MG/NS 100 ML IV SCH ×2 (03:45→17:07)
[2016-12-08 04:49] LABS: ALLEN TEST YES; BE 12.5 mmoll (-3.0-3.0); BLOOD TYPE ARTERIAL; DRAW SITE R RADIAL; METHB 0.7 % (0.0-1.5); O2(CT) 14.2 mL/dL (15.0-23.0); PCO2(98.6) 40 mmHg (35-45); PO2(98.6) 72 mmHg (60-100); SAMPLE BLOOD; SAO2 98.3 % (95.0-100.0); SRATE 8 BPM; THB 10.6 g/dL (11.5-17.4); TVOL 680 mL
[2016-12-08 04:50] LABS: MODALITY VENTILATOR; pH(98.6) 7.56 (7.35-7.45)
[2016-12-08] MEDS: LOVENOX SUBQ SCH (05:08)
[2016-12-08 05:29] LABS: HEMATOCRIT 32.7 % (37.0-47.0); HEMOGLOBIN 10.6 g/dL (12.0-16.0); MCH 26.9 PG (27-31); MCHC 32.4 g/dL (33-37); RBC 3.94 XMIL (4.2-5.4)
[2016-12-08 05:57] LABS: MAGNESIUM 1.8 mg/dL (1.5-2.7)
[2016-12-08 07:29] LABS: AGAP 14; ALBUMIN 2.2 g/dL (3.5-5.0); ALKALINE PHOSPHATASE 52 U/L (32-104); BUN 26 mg/dL (8-22); CALCIUM 8.8 mg/dL (8.8-10.2); CHLORIDE 91 mmol/L (98-107); COSMO 277; GOT 17 U/L (10-30); GPT 8 U/L (10-36); POTASSIUM 3.6 mmol/L (3.5-5.1); SODIUM 135 mmol/L (136-145); TCO2 30 mmol/L (25-35); TOTAL BILIRUBIN 0.24 mg/dL (0.20-1.00); TOTAL PROTEIN 5.2 g/dL (6.3-8.3)
[2016-12-08] MEDS: MORPHINE IV PRN ×3 (08:02→16:35)
[2016-12-08] MEDS: PROTONIX IV SCH (08:31)
--- NOTE | 2016-12-08 08:33 | Diag Imaging Result Document ---
PROCEDURE NAME: CHEST-PORTABLE - 12/08/2016 PORTABLE CHEST X-RAY: COMPARISON: 12/07/2016. FINDINGS: Support lines and tubes are stable. There is slight worsening in the pulmonary vascular congestion and central pulmonary edema. [id number] worsening pleural effusions. IMPRESSION: Worsening from prior.
[2016-12-08] MEDS: SOLU-CORTEF IV SCH ×2 (09:14→20:32)
[2016-12-08] MEDS: ROCEPHIN 1 GM/NS 50 ML IV SCH (10:34)
[2016-12-08] MEDS: FLONASE NAS SCH (11:04)
[2016-12-08] MEDS: IMDUR PO SCH (11:04)
[2016-12-08] MEDS: CLARITIN PO SCH (11:04)
[2016-12-08] MEDS: CARDIZEM CD PO SCH (11:04)
[2016-12-08] MEDS: LASIX PO SCH (11:05)
[2016-12-08] MEDS: SENOKOT PO SCH (11:05)
[2016-12-08] MEDS: THERA M PLUS PO SCH (11:05)
[2016-12-08] MEDS: LOPRESSOR PO SCH (11:05)
[2016-12-08] MEDS: VITAMIN D PO SCH (11:06)
[2016-12-08] MEDS: LEVAQUIN 500 MG/D5W 100 ML IV SCH (11:10)
[2016-12-08 11:53] LABS: ALLEN TEST YES; BE 13.2 mmoll (-3.0-3.0); BLOOD TYPE ARTERIAL; DRAW SITE L RADIAL; METHB 1.7 % (0.0-1.5); O2(CT) 14.2 mL/dL (15.0-23.0); PCO2(98.6) 46 mmHg (35-45); PO2(98.6) 88 mmHg (60-100); SAMPLE BLOOD; THB 10.6 g/dL (11.5-17.4); pH(98.6) 7.52 (7.35-7.45)
[2016-12-08 11:54] LABS: MODALITY VENTILATOR
--- NOTE | 2016-12-08 12:36 | PROGRESS NOTE ---
DATE: 12/08/2016 Ms. Maguire had right hemicolectomy. She has been in atrial fibrillation. She is on Cardizem. Her heart rate is about 102, O2 saturation is around 96%. Arterial blood gas was done this morning and revealed pH of 7.52, pCO2 of 46, pO2 of 88. Other lab data today revealed white count of 16.20, hemoglobin 10.6, electrolytes are stable, BUN is 26, creatinine 0.6. Serum cortisol level was 19.4. Urinalysis is unremarkable. Other results include chest x-ray which certainly looks worse with slight worsening of pulmonary vascular congestion and central pulmonary edema. She is on the vent. We have been trying to cut down the rate to have a weaning trial. Overall condition is guarded. We will continue with the current management on her.
--- NOTE | 2016-12-08 12:52 | PROGRESS NOTE ---
DATE: 12/08/2016 Ms. Maguire is status post total abdominal colectomy with end ileostomy not only for transverse colon cancer but because of ischemic colon. Her ostomy is viable and it has output. Yesterday the nurses placed a nasogastric tube, so hopefully we can start feeding her. She is still on the ventilator but she is undergoing weaning trials. She remains hemodynamically stable. She receives IV antibiotics. Her chest x-ray shows some pulmonary congestion. She is receiving peripheral nutrition. A PICC line was placed yesterday. Dr. Raudel Guzman has been doing her critical care and as surgeons we need to watch her abdomen and wound and try to feed her using her bowel. Dr. Carter is on for us this weekend.
[2016-12-08] MEDS: NEURONTIN PO SCH (20:32)
[2016-12-08] MEDS: LOFIBRA PO SCH (20:32)
[2016-12-09] MEDS: CLINIMIX E 4.25%-5% SOLUTION 1,000 ML IV SCH ×3 (02:23→17:35)
[2016-12-09] MEDS: LASIX IV SCH ×3 (02:24→21:22)
[2016-12-09] MEDS: CARDIZEM 100 MG/NS 100 ML IV SCH ×3 (03:10→21:31)
[2016-12-09] MEDS: DUONEB (A & A) INH SCH ×6 (03:22→22:36)
[2016-12-09 04:44] LABS: ALLEN TEST YES; BLOOD TYPE ARTERIAL; DRAW SITE R RADIAL; METHB 1.3 % (0.0-1.5); PO2(98.6) 71 mmHg (60-100); SAMPLE BLOOD; SAO2 95.9 % (95.0-100.0); THB 13.9 g/dL (11.5-17.4); pH(98.6) 7.45 (7.35-7.45)
[2016-12-09 04:45] LABS: MODALITY COOL AEROSOL; PCO2(98.6) 57 mmHg (35-45)
[2016-12-09] MEDS: LOVENOX SUBQ SCH (05:32)
[2016-12-09 07:31] LABS: HEMATOCRIT 31.9 % (37.0-47.0); HEMOGLOBIN 10.1 g/dL (12.0-16.0); MCH 26.6 PG (27-31); MCHC 31.7 g/dL (33-37); MCV 83.9 FL (81-99); MPV 10.3 FL (7.4-10.4); RBC 3.8 XMIL (4.2-5.4)
[2016-12-09 07:44] LABS: AGAP 11; ALBUMIN 2.6 g/dL (3.5-5.0); ALKALINE PHOSPHATASE 53 U/L (32-104); BUN 37 mg/dL (8-22); CALCIUM 8.9 mg/dL (8.8-10.2); CHLORIDE 96 mmol/L (98-107); COSMO 292; GOT 29 U/L (10-30); GPT 11 U/L (10-36); POTASSIUM 3.7 mmol/L (3.5-5.1); SODIUM 141 mmol/L (136-145); TCO2 34 mmol/L (25-35); TOTAL BILIRUBIN 0.28 mg/dL (0.20-1.00); TOTAL PROTEIN 5.3 g/dL (6.3-8.3)
--- NOTE | 2016-12-09 08:24 | Diag Imaging Result Document ---
PROCEDURE NAME: CHEST-PORTABLE - 12/09/2016 SINGLE FRONTAL RADIOGRAPH OF THE CHEST: COMPARISON: 12/08/2016. FINDINGS: Right PICC line is stable. NG tube projects below the diaphragm and out of the field of view. Pulmonary venous congestion and interstitial edema is again noted. There is increased focal opacity in the right perihilar region of the right lower lung zone suggesting worsening focal infiltrate and/or atelectasis. No new infiltrates are identified on the left. Cardiac silhouette is stable. IMPRESSION: Developing opacity in the right perihilar region, as described. Followup radiograph is recommended.
[2016-12-09] MEDS: SOLU-CORTEF IV SCH ×2 (08:30→21:22)
[2016-12-09] MEDS: PROTONIX IV SCH (08:31)
[2016-12-09] MEDS: CARDIZEM CD PO SCH (08:40)
[2016-12-09] MEDS: CLARITIN PO SCH (08:40)
[2016-12-09] MEDS: LASIX PO SCH (08:41)
[2016-12-09] MEDS: FLONASE NAS SCH (08:41)
[2016-12-09] MEDS: LOPRESSOR PO SCH (08:41)
[2016-12-09] MEDS: IMDUR PO SCH (08:41)
[2016-12-09] MEDS: VITAMIN D PO SCH (08:42)
[2016-12-09] MEDS: SENOKOT PO SCH (08:42)
[2016-12-09] MEDS: THERA M PLUS PO SCH (08:42)
[2016-12-09] MEDS: ROCEPHIN 1 GM/NS 50 ML IV SCH (10:29)
[2016-12-09] MEDS: LEVAQUIN 500 MG/D5W 100 ML IV SCH (10:29)
[2016-12-09] MEDS: MORPHINE IV PRN ×3 (11:01→19:01)
--- NOTE | 2016-12-09 12:35 | PROGRESS NOTE ---
DATE: 12/09/2016 SUBJECTIVE: The patient is hard of hearing but does not seem to be having problems. She seemed to understand me. She was alert. I asked her how she felt, and she said she did not feel very well but she could not be more specific. I asked her if she was hurting and she says sometimes but was not hurting currently. She does have pain medication ordered as needed. I asked her if she was short of breath, and she said no. She has been on Cardizem medication for SVT apparently and apparently had a drip. OBJECTIVE: Blood pressure is 132/55, respirations 19 and regular, pulse now is 92-96 beats per minute. Temperature is 98 degrees. HEENT: She is normocephalic, atraumatic. PERRLA. Throat clear. Lungs sound clear to auscultation and percussion without rhonchi, rales, or wheezes. Chest x-ray shows opacification of the right perihilar area that may be a little bit more dense than previous. Heart has regular rate and rhythm without murmurs, gallops, or friction rubs. Abdomen is soft with active bowel sounds. She has an ostomy bag on that does have stool in it. Neurologic: Cranial nerves 2-12 intact grossly except for decreased hearing. The patient is alert and oriented. Otherwise, the rest of the neurological exam is essentially normal. ASSESSMENT: 1. Colon cancer. 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 2. Cholecystitis, now postop since 12/05/2016 from her second surgery. Apparently, she had the first surgery and then developed some ischemic bowel and had to have a second surgery. 3. Pneumonia. PLAN: Continue support. She has multiple consultants seeing her as well.
[2016-12-09] MEDS: NEURONTIN PO SCH (21:23)
[2016-12-09] MEDS: LOFIBRA PO SCH (21:23)
[2016-12-10] MEDS: CLINIMIX E 4.25%-5% SOLUTION 1,000 ML IV SCH (00:41)
[2016-12-10] MEDS: DUONEB (A & A) INH SCH ×6 (03:23→22:45)
[2016-12-10 04:30] LABS: ALLEN TEST YES; BLOOD TYPE ARTERIAL; DRAW SITE R RADIAL; METHB 1.6 % (0.0-1.5); O2(CT) 13.6 mL/dL (15.0-23.0); PO2(98.6) 74 mmHg (60-100); SAMPLE BLOOD; SAO2 96.8 % (95.0-100.0); THB 10.3 g/dL (11.5-17.4)
[2016-12-10 04:32] LABS: MODALITY COOL AEROSOL; PCO2(98.6) 53 mmHg (35-45)
[2016-12-10 06:23] LABS: HEMOGLOBIN 9.5 g/dL (12.0-16.0); MCH 26.6 PG (27-31); MCHC 30.6 g/dL (33-37); MCV 86.8 FL (81-99); MPV 9.9 FL (7.4-10.4); RBC 3.57 XMIL (4.2-5.4)
[2016-12-10] MEDS: LOVENOX SUBQ SCH (06:36)
[2016-12-10 06:40] LABS: MAGNESIUM 1.9 mg/dL (1.5-2.7)
[2016-12-10 06:43] LABS: AGAP 9; ALBUMIN 2.5 g/dL (3.5-5.0); ALKALINE PHOSPHATASE 79 U/L (32-104); BUN 45 mg/dL (8-22); CALCIUM 9.6 mg/dL (8.8-10.2); CHLORIDE 96 mmol/L (98-107); COSMO 295; GOT 36 U/L (10-30); GPT 17 U/L (10-36); SODIUM 141 mmol/L (136-145); TCO2 36 mmol/L (25-35); TOTAL BILIRUBIN 0.35 mg/dL (0.20-1.00); TOTAL PROTEIN 5.2 g/dL (6.3-8.3)
[2016-12-10] MEDS: CARDIZEM 100 MG/NS 100 ML IV SCH ×2 (07:11→16:16)
[2016-12-10] MEDS: SOLU-CORTEF IV SCH ×2 (08:30→20:00)
[2016-12-10] MEDS: PROTONIX IV SCH (08:30)
--- NOTE | 2016-12-10 10:12 | Diag Imaging Result Document ---
PROCEDURE NAME: CHEST-PORTABLE - 12/10/2016 SINGLE FRONTAL RADIOGRAPH OF THE CHEST: COMPARISON: 12/09/2016. FINDINGS: Right PICC line is stable. NG tube projects below the diaphragm and out of the field of view. The increased opacity in the right perihilar region appears less prominent as compared to the previous study. No new consolidation is identified. Cardiac silhouette is stable. IMPRESSION: Decrease in density of the right perihilar opacity seen on the recent prior study. Stable chest, otherwise.
[2016-12-10] MEDS: ROCEPHIN 1 GM/NS 50 ML IV SCH (10:51)
[2016-12-10] MEDS: LEVAQUIN 500 MG/D5W 100 ML IV SCH (10:52)
[2016-12-10] MEDS: MORPHINE IV PRN ×2 (11:56→18:00)
[2016-12-10] MEDS: CLARITIN PO SCH (12:22)
[2016-12-10] MEDS: CARDIZEM CD PO SCH (12:22)
[2016-12-10] MEDS: IMDUR PO SCH (12:23)
[2016-12-10] MEDS: FLONASE NAS SCH (12:23)
[2016-12-10] MEDS: LOPRESSOR PO SCH (12:23)
[2016-12-10] MEDS: SENOKOT PO SCH (12:24)
[2016-12-10] MEDS: VITAMIN D PO SCH (12:24)
[2016-12-10] MEDS: THERA M PLUS PO SCH (12:24)
--- NOTE | 2016-12-10 13:19 | PROGRESS NOTE ---
DATE: 12/10/2016 SUBJECTIVE: Patient says she does not feel well but she cannot explain why. She has some old chronic back pain that is bothering her a little bit and her abdomen is hurting just a little bit. OBJECTIVE: Vital Signs: Blood pressure 113/63, pulse 104 and regular, respirations 17, temperature 98.4 degrees Fahrenheit. HEENT: She is normocephalic. Lungs: Sound fairly clear to auscultation. The right perihilar opacity has decreased on chest x-ray today. Heart: Regular rate and rhythm to sinus tachycardia without murmurs, gallops, or friction rubs. Abdomen: Soft. Active bowel sounds. Mild generalized tenderness. Neurological: Patient just does not look like she feels well. Cranial nerves 2 through 12 intact grossly. LABORATORY: White count from the 14 of 30,570 has dropped to 10,230. Hemoglobin is 9.5. ABG shows a pH of 7.50, pCO2 53, PO2 of 74. Her FiO2 is 28%. Sodium is 141, potassium 4.0, chloride 96, CO2 is 36, anion gap is 9, BUN 45, creatinine 0.6, GFR greater than 60. Blood sugar was 143. Magnesium was 1.9, phosphorus 2.9, calcium 9.6. ASSESSMENT: 1. Colon cancer. 2. Pneumonia. PLAN: Continue IV antibiotics and treatment.
[2016-12-10] MEDS: LOFIBRA PO SCH (20:00)
[2016-12-10] MEDS: NEURONTIN PO SCH (20:00)
[2016-12-11] MEDS: CARDIZEM 100 MG/NS 100 ML IV SCH (02:32)
[2016-12-11] MEDS: MORPHINE IV PRN ×3 (02:51→21:22)
[2016-12-11] MEDS: DUONEB (A & A) INH SCH ×6 (03:23→23:02)
[2016-12-11 04:33] LABS: ALLEN TEST YES; BE 14.8 mmoll (-3.0-3.0); BLOOD TYPE ARTERIAL; DRAW SITE R RADIAL; METHB 0.5 % (0.0-1.5); O2(CT) 16.3 mL/dL (15.0-23.0); PO2(98.6) 78 mmHg (60-100); SAMPLE BLOOD; SAO2 99.8 % (95.0-100.0); THB 12.1 g/dL (11.5-17.4); pH(98.6) 7.49 (7.35-7.45)
[2016-12-11 04:34] LABS: MODALITY CANNULA; PCO2(98.6) 53 mmHg (35-45)
[2016-12-11] MEDS: LOVENOX SUBQ SCH (05:05)
[2016-12-11 05:29] LABS: HEMOGLOBIN 9.2 g/dL (12.0-16.0); MCH 26.7 PG (27-31); MCHC 30.7 g/dL (33-37); MPV 9.8 FL (7.4-10.4); RBC 3.45 XMIL (4.2-5.4)
[2016-12-11 05:45] LABS: MAGNESIUM 1.9 mg/dL (1.5-2.7)
[2016-12-11 05:53] LABS: AGAP 9; ALBUMIN 2.6 g/dL (3.5-5.0); ALKALINE PHOSPHATASE 104 U/L (32-104); BUN 39 mg/dL (8-22); CALCIUM 9.2 mg/dL (8.8-10.2); CHLORIDE 98 mmol/L (98-107); COSMO 297; GOT 54 U/L (10-30); GPT 42 U/L (10-36); POTASSIUM 3.9 mmol/L (3.5-5.1); SODIUM 143 mmol/L (136-145); TCO2 36 mmol/L (25-35); TOTAL BILIRUBIN 0.36 mg/dL (0.20-1.00); TOTAL PROTEIN 5.3 g/dL (6.3-8.3)
--- NOTE | 2016-12-11 07:54 | Diag Imaging Result Document ---
PROCEDURE NAME: CHEST-PORTABLE - 12/11/2016 SINGLE FRONTAL RADIOGRAPH OF THE CHEST: COMPARISON: 12/10/2016. FINDINGS: Right PICC line is stable. NG tube projects below the diaphragm and out of the field of view. The right perihilar opacity is approximately stable. No new consolidations are identified. Cardiac silhouette is stable. IMPRESSION: Stable chest.
--- NOTE | 2016-12-11 09:20 | PROGRESS NOTE ---
DATE: 12/11/2016 Ms. Maguire is doing better. She is alert, oriented. She is on Clinimix IV as well as Levaquin and Cardizem drip. She is off the ventilator. Abdomen is soft, nontender. Lungs sound better. Chest x-ray is stable. We will put her on Cardizem 60 mg 3 times a day and try to wean her off the Cardizem. Overall condition is otherwise stable. She is trying to sit on the side of the bed today. We will try to taper the Cardizem IV drip off.
[2016-12-11] MEDS: PROTONIX IV SCH (09:22)
[2016-12-11] MEDS: SODIUM CHLORIDE 0.9% INJ SCH (09:22)
[2016-12-11] MEDS: VITAMIN D PO SCH (09:23)
[2016-12-11] MEDS: IMDUR PO SCH (09:23)
[2016-12-11] MEDS: CLARITIN PO SCH (09:23)
[2016-12-11] MEDS: SOLU-CORTEF IV SCH ×2 (09:24→20:01)
[2016-12-11] MEDS: SENOKOT PO SCH (09:24)
[2016-12-11] MEDS: FLONASE NAS SCH (09:24)
[2016-12-11] MEDS: THERA M PLUS PO SCH (09:25)
[2016-12-11] MEDS: CARDIZEM CD PO SCH (09:25)
[2016-12-11] MEDS: LOPRESSOR PO SCH (09:26)
[2016-12-11] MEDS: CARDIZEM PO SCH ×3 (09:32→16:49)
[2016-12-11] MEDS: ROCEPHIN 1 GM/NS 50 ML IV SCH (11:10)
[2016-12-11] MEDS: LEVAQUIN 500 MG/D5W 100 ML IV SCH (11:10)
--- NOTE | 2016-12-11 18:19 | PROGRESS NOTE ---
DATE: 12/11/2016 Ms. Maguire remains the ICU but she has been extubated. She is awake, seems to be somewhat confused but is cooperative. She has output from her ostomy. She has a gastric tube in getting her nutrition. Her midline incision seems to be healing well. She has no abdominal pain and her abdomen is mostly soft. Overall, she has come a long way over the last 2 days and I am encouraged.
[2016-12-11] MEDS: ZANAFLEX PO PRN (20:00)
[2016-12-11] MEDS: LOFIBRA PO SCH (20:01)
[2016-12-11] MEDS: NEURONTIN PO SCH (20:01)
[2016-12-12] MEDS: CARDIZEM 100 MG/NS 100 ML IV SCH (02:53)
[2016-12-12] MEDS: DUONEB (A & A) INH SCH ×6 (03:25→23:40)
[2016-12-12 04:25] LABS: ALLEN TEST YES; BLOOD TYPE ARTERIAL; DRAW SITE R RADIAL; METHB 1.8 % (0.0-1.5); O2(CT) 17.5 mL/dL (15.0-23.0); PO2(98.6) 79 mmHg (60-100); SAMPLE BLOOD; SAO2 96.6 % (95.0-100.0); THB 13.4 g/dL (11.5-17.4); pH(98.6) 7.48 (7.35-7.45)
[2016-12-12 04:26] LABS: MODALITY CANNULA; PCO2(98.6) 57 mmHg (35-45)
[2016-12-12 05:12] LABS: HEMATOCRIT 32.6 % (37.0-47.0); HEMOGLOBIN 9.8 g/dL (12.0-16.0); MCH 26.8 PG (27-31); MCHC 30.1 g/dL (33-37); MCV 89.3 FL (81-99); RBC 3.65 XMIL (4.2-5.4)
[2016-12-12 05:44] LABS: AGAP 9; ALBUMIN 2.7 g/dL (3.5-5.0); ALKALINE PHOSPHATASE 97 U/L (32-104); BUN 31 mg/dL (8-22); CALCIUM 9.6 mg/dL (8.8-10.2); CHLORIDE 100 mmol/L (98-107); COSMO 296; POTASSIUM 4.3 mmol/L (3.5-5.1); SODIUM 144 mmol/L (136-145); TCO2 35 mmol/L (25-35); TOTAL BILIRUBIN 0.43 mg/dL (0.20-1.00); TOTAL PROTEIN 5.4 g/dL (6.3-8.3)
[2016-12-12 05:45] LABS: GOT 44 U/L (10-30); GPT 44 U/L (10-36)
[2016-12-12] MEDS: LOVENOX SUBQ SCH (06:13)
--- NOTE | 2016-12-12 07:47 | Diag Imaging Result Document ---
PROCEDURE NAME: CHEST-PORTABLE - 12/12/2016 SINGLE FRONTAL RADIOGRAPH OF THE CHEST: COMPARISON: 12/11/2016. FINDINGS: Right PICC line is stable. NG tube projects below the diaphragm and out of the field of view. Right perihilar opacity is approximately stable. There are mild increased interstitial markings bilaterally that are stable. There is suggestion of trace effusions that also appear to be stable. Cardiac silhouette is unchanged. IMPRESSION: Stable chest.
[2016-12-12] MEDS: CARDIZEM PO SCH ×3 (09:05→17:50)
[2016-12-12] MEDS: CLARITIN PO SCH (09:05)
[2016-12-12] MEDS: LOPRESSOR PO SCH (09:05)
[2016-12-12] MEDS: IMDUR PO SCH (09:05)
[2016-12-12] MEDS: VITAMIN D PO SCH (09:06)
[2016-12-12] MEDS: THERA M PLUS PO SCH (09:06)
[2016-12-12] MEDS: SOLU-CORTEF IV SCH ×2 (09:07→20:18)
[2016-12-12] MEDS: PROTONIX IV SCH (09:07)
[2016-12-12] MEDS: SENOKOT PO SCH (09:07)
[2016-12-12] MEDS: FLONASE NAS SCH (09:08)
[2016-12-12] MEDS: MORPHINE IV PRN (09:42)
[2016-12-12] MEDS ORDERED: MORPHINE IV PRN (11:20)
[2016-12-12] MEDS: ROCEPHIN 1 GM/NS 50 ML IV SCH (12:43)
[2016-12-12] MEDS: LEVAQUIN 500 MG/D5W 100 ML IV SCH (12:43)
--- NOTE | 2016-12-12 13:40 | PROGRESS NOTE ---
DATE: 12/12/2016 Ms. Maguire is doing fairly well. She is alert. She is confused from dementia. She is still in atrial fibrillation with a fast rate. We are trying to taper the Cardizem off however we have not been able to do that. She is on IV levofloxacin as well as Rocephin. Chest x-ray is unchanged. Arterial blood gases reveal a slight increase in the pCO2 otherwise it is unremarkable. Overall condition is unchanged. We will continue with the current management. Watch it in ICU. She is still on Cardizem IV.
--- NOTE | 2016-12-12 18:00 | PROGRESS NOTE ---
DATE: 12/12/2016 Ms. Maguire is confused, but she is sitting in the chair and she does answer questions. She is cooperative. She has pulled her tube out of her stomach where we were tube feeding her, so we gave her a soft diet and she has eaten some lunch. We will see how she eats dinner. Her ostomy is functioning. Her midline incision seems to be healing satisfactorily. She still has a Shrestha catheter tube in place.
[2016-12-12] MEDS: LOFIBRA PO SCH (20:18)
[2016-12-12] MEDS: ZANAFLEX PO PRN (20:18)
[2016-12-12] MEDS: NEURONTIN PO SCH (20:18)
[2016-12-13] MEDS: DUONEB (A & A) INH SCH ×6 (03:39→23:18)
[2016-12-13 04:22] LABS: ALLEN TEST YES; BE 16.7 mmoll (-3.0-3.0); BLOOD TYPE ARTERIAL; DRAW SITE R RADIAL; METHB 1.2 % (0.0-1.5); O2(CT) 13.2 mL/dL (15.0-23.0); PO2(98.6) 77 mmHg (60-100); SAMPLE BLOOD; SAO2 99.1 % (95.0-100.0); THB 9.8 g/dL (11.5-17.4); pH(98.6) 7.48 (7.35-7.45)
[2016-12-13 04:25] LABS: MODALITY CANNULA; PCO2(98.6) 57 mmHg (35-45)
[2016-12-13] MEDS: LOVENOX SUBQ SCH (05:34)
[2016-12-13 06:54] LABS: HEMATOCRIT 32.4 % (37.0-47.0); HEMOGLOBIN 9.6 g/dL (12.0-16.0); MCHC 29.6 g/dL (33-37); MPV 9.9 FL (7.4-10.4); RBC 3.56 XMIL (4.2-5.4)
[2016-12-13 07:00] LABS: AGAP 6; ALBUMIN 2.6 g/dL (3.5-5.0); ALKALINE PHOSPHATASE 64 U/L (32-104); BUN 31 mg/dL (8-22); CALCIUM 9.9 mg/dL (8.8-10.2); CHLORIDE 99 mmol/L (98-107); COSMO 292; GOT 29 U/L (10-30); GPT 34 U/L (10-36); SODIUM 143 mmol/L (136-145); TCO2 38 mmol/L (25-35); TOTAL BILIRUBIN 0.53 mg/dL (0.20-1.00); TOTAL PROTEIN 5.3 g/dL (6.3-8.3)
[2016-12-13] MEDS: SENOKOT PO SCH (09:03)
[2016-12-13] MEDS: SODIUM CHLORIDE 0.9% INJ SCH (09:03)
[2016-12-13] MEDS: IMDUR PO SCH (09:03)
[2016-12-13] MEDS: THERA M PLUS PO SCH (09:03)
[2016-12-13] MEDS: VITAMIN D PO SCH (09:03)
[2016-12-13] MEDS: SOLU-CORTEF IV SCH ×2 (09:03→21:04)
[2016-12-13] MEDS: CARDIZEM PO SCH ×3 (09:04→21:03)
[2016-12-13] MEDS: LOPRESSOR PO SCH ×2 (09:04→21:03)
[2016-12-13] MEDS: PROTONIX IV SCH (09:04)
[2016-12-13] MEDS: CLARITIN PO SCH (09:04)
--- NOTE | 2016-12-13 09:26 | PROGRESS NOTE ---
DATE: 12/13/2016 Ms. Maguire is alert. She has been tolerating soft food well. She is in atrial fibrillation with a heart rate of 110. She is on p.o. Cardizem. The rate is jumping up to 135. We will try the p.o. Cardizem now and, if she slows down, then we will move her out today. Her blood gases this morning, again, are about the same, not really that much change with PCO2s stable around 57. Electrolytes are normal. Overall condiiton is unchanged otherwise. -6
[2016-12-13] MEDS ORDERED: LANOXIN IV ONE (10:12)
--- NOTE | 2016-12-13 10:24 | EKG Report ---
Test Performed on : 12/13/2016 09:53:53 AM Test Reason : afib with rvr Blood Pressure : / mmHG Vent. Rate : 120 BPM Atrial Rate : 241 BPM P-R Int : 000 ms QRS Dur : 078 ms QT Int : 296 ms P-R-T Axes : 000 016 225 degrees QTc Int : 418 ms Atrial fibrillation. with rapid ventricular response. ST & T wave abnormality, consider inferior ischemia ST & T wave abnormality, consider anterolateral ischemia Abnormal ECG When compared with ECG of 07-DEC-2016 03:48, T wave inversion more evident in Inferior leads Confirmed by Shiraz Bergman MD ([id number]) on 12/13/2016 9:49:48 PM
--- NOTE | 2016-12-13 10:39 | CONSULTATION ---
DATE OF CONSULTATION: 12/13/2016 REASON FOR CONSULTATION: Cardiology consulted for new onset atrial fibrillation. HISTORY OF PRESENT ILLNESS: Ms. Amos Maguire is an 86-year-old, lady who was admitted with severe anemia and rectal bleeding. Underwent a colonoscopy and subsequently underwent surgery with a total abdominal colectomy and ileostomy on 12/05/2016. She has received 3 units of packed cells. She went into atrial fibrillation with rapid ventricular rate. Cardiology was consulted. At the time of my examination, she does not complain of any chest pain. She has known cardiac disease as listed below. There is no history of atrial fibrillation. REVIEW OF SYSTEMS: Gastrointestinal System: As above. Cardiovascular System: Denies chest pain or worsening shortness of breath. Central Nervous System: No focal weakness to suggest a CVA or TIA. Genitourinary System: There is no dysuria or hematuria. PAST MEDICAL HISTORY: 1. Coronary artery disease, status post PCI and stenting to the right coronary artery in 1997. 2. Valvular heart disease with aortic insufficiency. 3. Hypertension. 4. Dyslipidemia. 5. Peripheral vascular disease. A CT of the abdomen in the past had revealed aneurysmal dilatation of the distal aorta, small dissection. This was noted on 03/12/2014. She is followed by vascular surgeons in [place]. Had the right SFA 100% occlusion. 6. Abdominal aorta aneurysm. 7. Gastroesophageal reflux disease. 8. Degenerative joint disease. 9. Bilateral carotid disease with 50-99% left internal carotid and left subclavian in the past. HOME MEDICATIONS: Included gabapentin 100, diltiazem 240, Pletal 100, Nexium 40, isosorbide mononitrate, fenofibrate 160, metoprolol 25, hydrocodone as needed, enteric-coated aspirin 81 mg a day, Pyridium, Lasix. PHYSICAL EXAMINATION: Vital signs: Blood pressure was 118/82, heart rate 120 and regular. Cardiovascular System: Normal jugular venous pressure. First and second heart sounds were heard. There is no S3 gallop. There is faint systolic murmur. Respiratory System: Normal air entry. There are no crepitations or rhonchi. Abdomen: Recent surgery. Central Nervous System: Alert. Moving all 4 extremities. Detailed central nervous system examination not performed. LABORATORY EXAMINATION: Revealed sodium 143, potassium 4, BUN 31, creatinine 0.6. Hemoglobin 9.6, hematocrit 32, platelet count of 302,000, 8.5 is her white count. When she came in, her troponin was 0.18, CK of 53. Chest x-ray with increased interstitial markings. That was today. ASSESSMENT AND PLAN: 1. Ms. Amos Maguire is an 86-year-old, lady who has undergone a colectomy for a severe gastrointestinal bleed. Status post surgery, went into atrial fibrillation. This is new onset. Rate of 116-120. She has been started on Cardizem 60 mg by mouth every 8. We will give her digoxin 0.25 mg intravenous and increase the metoprolol to 25 mg twice daily. 2. We will get an echocardiogram to assess cardiac and valvular function. 3. We will get serial cardiac enzymes. 4. As far as rate control is concerned, we will try her on Cardizem as well as metoprolol. If this does not work, we will give her intravenous amiodarone. 5. She is not being anticoagulated given her recent gastrointestinal bleed and surgery. So far stable. She has received 3 units of packed cells. 6. She has known cardiac problems with stenting in the past in 1997. We will get serial cardiac enzymes. She does not complain of any chest pain. 7. She has history of hypertension, currently stable. 8. She also has a history of peripheral vascular disease, currently stable. Thank you for the consult. We will follow hospital course.
[2016-12-13] MEDS: LEVAQUIN 500 MG/D5W 100 ML IV SCH (14:24)
[2016-12-13] MEDS: ROCEPHIN 1 GM/NS 50 ML IV SCH (14:24)
--- NOTE | 2016-12-13 16:12 | PROGRESS NOTE ---
DATE: 12/13/2016 SUBJECTIVE: Ms. Maguire has been moved from the ICU to CICU today. She is breathing on her own. She is awake, cooperative, confused to time, and looks weak. OBJECTIVE: Her heart rate is 100. Her blood pressure is 128/67. O2 saturation 99%. She is afebrile. She is on IV antibiotics, Levaquin. Her white blood cell count was normal yesterday. Her hematocrit is 32.4. Electrolytes are within normal limits. BUN 31, creatinine is 0.6. We are trying encourage p.o. intake. She has good output from her ileostomy. Physical Therapy is working with her to try to strengthen her.
--- NOTE | 2016-12-13 16:36 | ECHO REPORT ---
ORDER DATE: 12/13/2016 INDICATION: Atrial fibrillation. Dyspnea. FINDINGS: 1. The right atrium appears normal size. 2. There is mild to moderate tricuspid regurgitation. RV systolic pressure of 43. 3. There is mild pulmonic insufficiency. 4. Normal RV size and systolic function. 5. Normal left atrial size at 3.9 cm. 6. No mitral prolapse. Mild mitral regurgitation. 7. Normal LV size, end-diastolic dimension of 4.4. Normal wall thicknesses with a posterior and interventricular septal wall thickness of 0.8 cm each. Normal LV systolic function. Estimated EF is greater than 55%. There is no obvious wall motion abnormalities. 8. Aortic valve appears calcified and with some restriction in motion. However, there is no evidence of increased gradient on this study. The aortic valve area by continuity equation is 1 cm2. There is mild aortic insufficiency. 9. Aorta appears normal in visualized segments. 10. No pericardial effusion seen. 11. Patient does appear to be in atrial fibrillation with a rate in the 90s to low 100s.
[2016-12-13] MEDS: FLONASE NAS SCH (17:37)
[2016-12-13] MEDS: ZANAFLEX PO PRN (21:03)
[2016-12-13] MEDS: LOFIBRA PO SCH (21:03)
[2016-12-13] MEDS: NEURONTIN PO SCH (21:03)
[2016-12-13] MEDS ORDERED: BLISTEX MEDICATED BERRY LIP BALM TOP PRN (22:14)
[2016-12-14 03:03] LABS: HEMATOCRIT 28.7 % (37.0-47.0); HEMOGLOBIN 8.7 g/dL (12.0-16.0); MCH 26.9 PG (27-31); MCHC 30.3 g/dL (33-37); MCV 88.6 FL (81-99); MPV 9.5 FL (7.4-10.4); RBC 3.24 XMIL (4.2-5.4)
[2016-12-14] MEDS: DUONEB (A & A) INH SCH ×6 (03:14→23:42)
[2016-12-14 03:25] LABS: AGAP 6; ALBUMIN 2.6 g/dL (3.5-5.0); ALKALINE PHOSPHATASE 56 U/L (32-104); BUN 28 mg/dL (8-22); CALCIUM 9.4 mg/dL (8.8-10.2); CHLORIDE 101 mmol/L (98-107); COSMO 292; GOT 22 U/L (10-30); GPT 26 U/L (10-36); POTASSIUM 3.6 mmol/L (3.5-5.1); SODIUM 143 mmol/L (136-145); TCO2 36 mmol/L (25-35); TOTAL BILIRUBIN 0.37 mg/dL (0.20-1.00)
[2016-12-14] MEDS: LOVENOX SUBQ SCH (06:35)
--- NOTE | 2016-12-14 07:11 | EKG Report ---
Test Performed on : 12/14/2016 06:39:28 AM Test Reason : afib with rvr Blood Pressure : / mmHG Vent. Rate : 113 BPM Atrial Rate : 141 BPM P-R Int : 000 ms QRS Dur : 086 ms QT Int : 362 ms P-R-T Axes : 000 011 211 degrees QTc Int : 496 ms Atrial fibrillation. with rapid ventricular response. ST & T wave abnormality, consider inferior ischemia ST & T wave abnormality, consider anterolateral ischemia Abnormal ECG When compared with ECG of 13-DEC-2016 09:53, No significant change was found Confirmed by Shiraz Bergman MD ([id number]) on 12/15/2016 8:51:51 PM
[2016-12-14] MEDS: SENOKOT PO SCH (09:48)
[2016-12-14] MEDS: LOPRESSOR PO SCH ×2 (09:48→20:59)
[2016-12-14] MEDS: VITAMIN D PO SCH (09:49)
[2016-12-14] MEDS: CARDIZEM PO SCH ×3 (09:49→21:00)
[2016-12-14] MEDS: THERA M PLUS PO SCH (09:49)
[2016-12-14] MEDS: IMDUR PO SCH (09:49)
[2016-12-14] MEDS: CLARITIN PO SCH (09:49)
[2016-12-14] MEDS: SODIUM CHLORIDE 0.9% INJ SCH (09:50)
[2016-12-14] MEDS: PROTONIX IV SCH (09:50)
[2016-12-14] MEDS: FLONASE NAS SCH (09:50)
[2016-12-14] MEDS: SOLU-CORTEF IV SCH (09:50)
--- NOTE | 2016-12-14 10:04 | PROGRESS NOTE ---
DATE: 12/14/2016 SUBJECTIVE: Ms. Maguire continues to be in atrial fibrillation with heart rate of 125. Hemoglobin is 8.7, hematocrit 28.7. Overall condition is otherwise stable. Electrolytes are stable. BUN is 28, creatinine 0.6. Except for slightly lower hemoglobin, blood work is stable. She is seen by Dr. Avila for cardiology consult. She is on diltiazem 60 mg t.i.d., metoprolol 25 mg t.i.d. She got Lanoxin IV yesterday 1 dose. We will continue to watch her closely here at [facility].
[2016-12-14] MEDS: ROCEPHIN 1 GM/NS 50 ML IV SCH (11:04)
[2016-12-14] MEDS: LEVAQUIN 500 MG/D5W 100 ML IV SCH (11:04)
--- NOTE | 2016-12-14 12:25 | PROGRESS NOTE ---
DATE: 12/14/2016 Ms. Maguire is awake and in no acute distress. Appears to be lucid and cooperative this morning. Her ostomy is functioning and she is eating about 25% of her meals. Her heart rate is 91, blood pressure 124/66, O2 saturation 96%. She has no work of breathing. She still has nasal cannula in place. Cardiology has been consulted because of her atrial fibrillation and is being treated with diltiazem and Lanoxin. She still has a Shrestha catheter tube in place. Her urine output is adequate. Her BUN and creatinine are 28 and 0.6. Her hematocrit is 29%. Her white blood cell count has been normal for the last 48 hours. Her midline incision is healing well. Her ileostomy is functioning and is viable. We have asked our inner stomal nurse to start teaching the family about her ileostomy. PLAN: I will stop her IV antibiotics because of her normal white count and she is afebrile. Will stop most of her IV medications including morphine and Protonix and steroids. Will give her p.o. pain medicine. She complains mostly of pain in her back which has been chronic. Physical therapy is working with the patient and she has been up and actually done some walking. We have asked social service to speak with the family to begin discharge planning.
[2016-12-14] MEDS: LOFIBRA PO SCH (20:59)
[2016-12-14] MEDS: NEURONTIN PO SCH (21:00)
[2016-12-14] MEDS: NORCO-5 PO PRN (21:00)
[2016-12-14] MEDS: ZANAFLEX PO PRN (21:00)
[2016-12-15] MEDS: DUONEB (A & A) INH SCH ×6 (02:40→22:48)
[2016-12-15 05:24] LABS: HEMATOCRIT 31.3 % (37.0-47.0); HEMOGLOBIN 9.4 g/dL (12.0-16.0); MCH 26.7 PG (27-31); MCV 88.9 FL (81-99); MPV 10.4 FL (7.4-10.4); RBC 3.52 XMIL (4.2-5.4)
[2016-12-15 05:39] LABS: AGAP 8; ALBUMIN 2.9 g/dL (3.5-5.0); ALKALINE PHOSPHATASE 58 U/L (32-104); BUN 25 mg/dL (8-22); CALCIUM 9.7 mg/dL (8.8-10.2); CHLORIDE 101 mmol/L (98-107); COSMO 290; GOT 21 U/L (10-30); GPT 23 U/L (10-36); POTASSIUM 3.2 mmol/L (3.5-5.1); SODIUM 144 mmol/L (136-145); TCO2 35 mmol/L (25-35); TOTAL BILIRUBIN 0.45 mg/dL (0.20-1.00); TOTAL PROTEIN 5.2 g/dL (6.3-8.3)
[2016-12-15] MEDS: LOVENOX SUBQ SCH (06:36)
--- NOTE | 2016-12-15 07:43 | PROGRESS NOTE ---
DATE: 12/15/2016 SUBJECTIVE: Ms. Maguire had her Shrestha catheter tube removed this morning and her stomal therapy is working with the family to teach them about her ileostomy. Her midline incision seems to be healing well without evidence of infection. She is awake and cooperative this morning. She is eating 25-75% of her meals. She has good output from her ileostomy. OBJECTIVE: Her heart rate is 92, blood pressure 126/68 and hematocrit is 31%. She has no work up breathing. She wears nasal cannula O2. Her urine output has been adequate. Her BUN and creatinine are 25 and 0.7. Her white blood cell count is 7.6. It has been normal over the last 3 days. She is afebrile and I stopped her IV antibiotics yesterday. She is working with physical therapy. PLAN: We need to continue teaching the family about her ileostomy. We need to continue discharge planning. She going to go to rehab versus home with home care.
[2016-12-15] MEDS ORDERED: KLOR-CON PO ONE (09:52)
--- NOTE | 2016-12-15 11:08 | PROGRESS NOTE ---
DATE: 12/15/2016 Ms. Maguire is doing fairly well. She is in sinus rhythm now. She is recovering from the surgery. Hemoglobin was 9.4, white count 7.66. Potassium is still 3.2. We will probably supplement more potassium by mouth. Progress well. She is on Cardizem by mouth. We will start some physical therapy on her. She has an ileostomy and we will check with the family about the rehab or home discharge plan.
[2016-12-15] MEDS: FLONASE NAS SCH (11:24)
[2016-12-15] MEDS: SENOKOT PO SCH (11:24)
[2016-12-15] MEDS: VITAMIN D PO SCH (11:25)
[2016-12-15] MEDS: CARDIZEM CD PO SCH (11:25)
[2016-12-15] MEDS: CLARITIN PO SCH (11:25)
[2016-12-15] MEDS: IMDUR PO SCH (11:25)
[2016-12-15] MEDS: THERA M PLUS PO SCH (11:25)
[2016-12-15] MEDS: LOPRESSOR PO SCH ×2 (11:26→20:51)
[2016-12-15] MEDS: NORCO-5 PO PRN (16:54)
[2016-12-15] MEDS ORDERED: FLOMAX PO ONE (19:49)
[2016-12-15] MEDS ORDERED: NS 500 ML IV SCH (20:00)
[2016-12-15] MEDS: LOFIBRA PO SCH (20:51)
[2016-12-15] MEDS: ZANAFLEX PO PRN (20:51)
[2016-12-15] MEDS: KLOR-CON PO SCH (20:51)
[2016-12-15] MEDS: NEURONTIN PO SCH (20:51)
[2016-12-16] MEDS: DUONEB (A & A) INH SCH ×6 (02:30→23:37)
[2016-12-16 05:57] LABS: AGAP 9; BUN 21 mg/dL (8-22); CALCIUM 9.3 mg/dL (8.8-10.2); CHLORIDE 101 mmol/L (98-107); COSMO 285; MAGNESIUM 1.7 mg/dL (1.5-2.7); POTASSIUM 3.8 mmol/L (3.5-5.1); SODIUM 142 mmol/L (136-145); TCO2 32 mmol/L (25-35)
[2016-12-16] MEDS: LOVENOX SUBQ SCH (06:07)
--- NOTE | 2016-12-16 06:28 | PROGRESS NOTE ---
DATE: 12/16/2016 SUBJECTIVE: The patient without major issues. Discussed overnight with the nurse. She has had low urine output. They have bladder scanned her multiple times, but she finally did urinate. It seemed a little bit concentrated. Patient is having ileostomy output, although not a significant amount to make her dehydrated. She is taking in p.o., maybe not enough to keep herself hydrated. OBJECTIVE: Vital Signs: Patient is currently afebrile. Her vital signs have been stable. General: No acute distress. Resting comfortably in bed. Cardiovascular: Regular rate and rhythm. Lungs: Grossly clear. Abdomen: Soft, nontender, nondistended. Ileostomy in place and functioning with appliance in place. DATA: Labs this morning are currently pending. ASSESSMENT/PLAN: An 86-year-old, female status post total abdominal colectomy. At this time, she is clinically do all right. We will watch her fluid intake given her low urine output and the urine looking concentrated. Would ideally like to have her keep herself hydrated by p.o. intake. If not, may need to keep her on some maintenance fluids. We will continue to monitor through the course of the day.
[2016-12-16] MEDS: SENOKOT PO SCH (09:25)
[2016-12-16] MEDS: FLONASE NAS SCH (09:25)
[2016-12-16] MEDS: VITAMIN D PO SCH (09:26)
[2016-12-16] MEDS: CARDIZEM CD PO SCH (09:26)
[2016-12-16] MEDS: THERA M PLUS PO SCH (09:26)
[2016-12-16] MEDS: CLARITIN PO SCH (09:26)
[2016-12-16] MEDS: IMDUR PO SCH (09:26)
[2016-12-16] MEDS: LOPRESSOR PO SCH ×2 (09:26→20:57)
[2016-12-16] MEDS: KLOR-CON PO SCH ×2 (09:26→20:57)
[2016-12-16] MEDS ORDERED: MAGNESIUM SULFATE 2 GM/S.W.I. 50 ML IV ONE (11:59)
--- NOTE | 2016-12-16 12:22 | PROGRESS NOTE ---
DATE: 12/16/2016 SUBJECTIVE: Ms. Maguire reports she feels okay today. She is not having any heart racing. OBJECTIVE: Vital Signs: On physical examination, she is afebrile. Her heart rate during my examination was in the low 100s. Blood pressure 137/75. General: Generally, no acute distress. Cardiovascular: Irregularly irregular. No obvious murmurs. No lower extremity edema. Chest: Exam is clear bilaterally. No increased work of breathing. Abdomen: Soft, nontender. PERTINENT DATA: Her BMP today shows a sodium of 142, potassium 3.8, BUN 21, creatinine 0.6. Mag level 1.7. ASSESSMENT: Atrial fibrillation. PLAN: Her potassium seems appropriate. She is getting oral potassium daily. I will replete her magnesium. She is not a candidate for anticoagulation presently secondary to recent gastrointestinal bleed. She is currently on Cardizem at a dose of 180 a day. I will increase that to 240 today to work on rate control. She seems to be tolerating her current rate.
--- NOTE | 2016-12-16 12:29 | PROGRESS NOTE ---
DATE: 12/16/2016 SUBJECTIVE: Ms. Maguire is doing fairly well. She has dementia. Her physical examination is unchanged. She has colostomy following the colectomy done Her vital signs are stable. The family wants her to go to rehab, and she is going to rehab on Sunday to [facility]. -1
[2016-12-16] MEDS: NORCO-5 PO PRN (16:26)
[2016-12-16] MEDS: ZANAFLEX PO PRN (20:57)
[2016-12-16] MEDS: LOFIBRA PO SCH (20:57)
[2016-12-16] MEDS: NEURONTIN PO SCH (20:57)
[2016-12-17] MEDS: DUONEB (A & A) INH SCH ×6 (03:57→23:29)
[2016-12-17 05:47] LABS: AGAP 9; BUN 18 mg/dL (8-22); CALCIUM 8.9 mg/dL (8.8-10.2); CHLORIDE 101 mmol/L (98-107); COSMO 282; SODIUM 141 mmol/L (136-145); TCO2 31 mmol/L (25-35)
[2016-12-17] MEDS: LOVENOX SUBQ SCH (06:23)
--- NOTE | 2016-12-17 07:10 | PROGRESS NOTE ---
DATE: 12/17/2016 SUBJECTIVE: No major issues. She has been able to void without too much difficulty. OBJECTIVE: Vital Signs: Patient is currently afebrile. Her vital signs have been stable. General Examination: No acute distress. Resting comfortably in bed. Cardiovascular: Regular rate and rhythm. Lungs: Grossly clear. Abdomen: Soft, nontender, nondistended. Ileostomy in place and functioning with appliance in place. LABS: This morning reviewed. BUN and creatinine were within normal limits. ASSESSMENT AND PLAN: An 86-year-old, female, status post total abdominal colectomy. At this time, she is clinically doing well. We will continue to watch her urine output and her fluid intake to make sure she is staying hydrated. At this time, we are awaiting rehab placement.
[2016-12-17] MEDS: VITAMIN D PO SCH (09:02)
[2016-12-17] MEDS: CLARITIN PO SCH (09:03)
[2016-12-17] MEDS: IMDUR PO SCH (09:03)
[2016-12-17] MEDS: SENOKOT PO SCH (09:03)
[2016-12-17] MEDS: THERA M PLUS PO SCH (09:03)
[2016-12-17] MEDS: LOPRESSOR PO SCH ×2 (09:03→20:19)
[2016-12-17] MEDS: TEARISOL OPH SOLUTION BOTH EYES PRN ×2 (09:03→17:02)
[2016-12-17] MEDS: CARDIZEM CD PO SCH (09:03)
[2016-12-17] MEDS: FLONASE NAS SCH (09:06)
[2016-12-17] MEDS: NORCO-5 PO PRN ×2 (09:14→17:01)
[2016-12-17] MEDS: KLOR-CON PO SCH ×2 (09:14→20:19)
--- NOTE | 2016-12-17 14:05 | PROGRESS NOTE ---
DATE: 12/17/2016 Ms. Maguire is doing better. Continuing to be in atrial fibrillation. Her electrolyte status is normal. BUN 18, creatinine 0.6. Abdomen is nondistended. Her colostomy is doing well. Overall condition is unchanged. Will continue with the current management. She is going to [facility] tomorrow. -1
[2016-12-17] MEDS: LOFIBRA PO SCH (20:19)
[2016-12-17] MEDS: NEURONTIN PO SCH (20:19)
[2016-12-17] MEDS: ZANAFLEX PO PRN (20:19)
[2016-12-18] MEDS: DUONEB (A & A) INH SCH ×3 (03:14→11:13)
[2016-12-18] MEDS: LOVENOX SUBQ SCH (06:20)
[2016-12-18] MEDS: CLARITIN PO SCH (09:51)
[2016-12-18] MEDS: VITAMIN D PO SCH (09:51)
[2016-12-18] MEDS: KLOR-CON PO SCH (09:51)
[2016-12-18] MEDS: SENOKOT PO SCH (09:51)
[2016-12-18] MEDS: THERA M PLUS PO SCH (09:51)
[2016-12-18] MEDS: FLONASE NAS SCH (09:52)
[2016-12-18] MEDS: NORCO-5 PO PRN (09:52)
[2016-12-18] MEDS: CARDIZEM CD PO SCH (09:53)
[2016-12-18] MEDS: LOPRESSOR PO SCH (09:53)
[2016-12-18] MEDS: IMDUR PO SCH (09:53)
--- NOTE | 2016-12-18 09:59 | DISCHARGE SUMMARY ---
ADMISSION DATE: 11/29/2016 DISCHARGE DATE: FINAL DISCHARGE DIAGNOSES: 1. Ischemic colitis, status post total colectomy and ileostomy. 2. Lower gastrointestinal bleed. Found to have colon cancer. The patient required a right extended hemicolectomy. 3. Acute blood loss anemia secondary to gastrointestinal bleed. 4. Paroxysmal atrial fibrillation. 5. Hypertension. 6. Osteoarthritis. 7. Dementia. 8. Gastritis and reflux disease. HOSPITAL: Ms. Maguire is an 86-year-old, white, female patient admitted with lower GI bleed, acute blood loss anemia. The patient required blood transfusion. The patient underwent colonoscopy. She was found to have transverse colon malignancy with deep ulceration, ischemic colitis involving the right colon. Surgical consult obtained. Dr. Luna did extended right hemicolectomy. Initially, patient did well. On 3rd or 4th postoperative day, patient's clinical condition deteriorated. Patient found to have significant ischemic colon requiring total abdominal colectomy with ileostomy. Postoperative course complicated by respiratory failure. Patient was on mechanical ventilation. Stayed in ICU for a few days. Dr. Guzman managed her respiratory failure. The patient had atrial fibrillation with rapid ventricular response. Cardiology consult obtained. The patient was started on Cardizem IV and then Cardizem p.o. Her clinical condition gradually improved. The patient is doing better. She is sitting on the bedside chair, ambulating some. No high-grade fever or chills. She denied any nausea or vomiting. Oral intake is fair. PHYSICAL EXAMINATION: Vital Signs: Her vital signs are noted. Lungs: Bilateral good air entry present. CVS: S1 and S2 heard. Abdomen: Soft, globular. Bowel sounds present. Patient does have samantha. The ileostomy is functioning well. Extremities: Minimal swelling of both the legs. No acute DVT. [employer]: Alert, awake. Able to move all 4 limbs. Concrete Carpenter evaluated the patient and recommendation is not to start her on anticoagulation for her atrial fibrillation. Her last lab done on December 15, hemoglobin 9.4, hematocrit 31.3, WBC count 7.66, platelet count 304,000. Electrolytes done on December 17, BUN was 18, creatinine 0.6, potassium was 4. Magnesium was 2. Cardiac isoenzymes were negative. Her last chest x-ray done on November 11 was stable chest. 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 Overall, patient is doing better. I am going to discuss with surgeon. If it is okay with him, I am planning to discharge patient to rehab today. Overall plan discussed with the daughter. She is in agreement. We will discharge her on Cardizem, pain medicine, wound care, fall precaution. We will encourage Ensure. Overall discharge condition satisfactory. Overall prognosis fair to guarded.
[2016-12-18 14:03] VITALS: BP 113/73
== END 2016-12-18 13:50 | DRG 329 ==
LOC: DIRADM 12:43 → 4N 16:45 → ICU 12-05 16:53 → 3S 12-13 10:58
PROVIDERS: ADMIT Internal Medicine; ATTEND Internal Medicine
PROC: 30233N1 Transfusion of Nonautologous Red Blood Cells into Peripheral Vein, Percutaneous Approach (ICD-10-PCS; 2016-11-30)
PROC: 0DBK8ZX Excision of Ascending Colon, Via Natural or Artificial Opening Endoscopic, Diagnostic (ICD-10-PCS; 2016-12-01)
PROC: 0DBL8ZX Excision of Transverse Colon, Via Natural or Artificial Opening Endoscopic, Diagnostic (ICD-10-PCS; 2016-12-01)
PROC: 0DTF0ZZ Resection of Right Large Intestine, Open Approach (ICD-10-PCS; principal; 2016-12-01 06:32)
PROC: 0FT40ZZ Resection of Gallbladder, Open Approach (ICD-10-PCS; 2016-12-01 06:32)
PROC: 0DTG0ZZ Resection of Left Large Intestine, Open Approach (ICD-10-PCS; 2016-12-05)
PROC: 0D1B0Z4 Bypass Ileum to Cutaneous, Open Approach (ICD-10-PCS; 2016-12-05)
PROC: 5A1945Z Respiratory Ventilation, 24-96 Consecutive Hours (ICD-10-PCS; 2016-12-05)
PROC: 0BH17EZ Insertion of Endotracheal Airway into Trachea, Via Natural or Artificial Opening (ICD-10-PCS; 2016-12-05)
PROC: 02HV33Z Insertion of Infusion Device into Superior Vena Cava, Percutaneous Approach (ICD-10-PCS; 2016-12-07)
DX: C18.4 Malignant neoplasm of transverse colon (principal); J81.0 Acute pulmonary edema; K55.9 Vascular disorder of intestine, unspecified; J95.821 Acute postprocedural respiratory failure; E87.3 Alkalosis; J18.0 Bronchopneumonia, unspecified organism; E46 Unspecified protein-calorie malnutrition; C77.2 Secondary and unspecified malignant neoplasm of intra-abdominal lymph nodes; F05 Delirium due to known physiological condition; E87.1 Hypo-osmolality and hyponatremia; K80.10 Calculus of gallbladder with chronic cholecystitis without obstruction; N39.0 Urinary tract infection, site not specified; D62 Acute posthemorrhagic anemia; F03.90 Unspecified dementia, unspecified severity, without behavioral disturbance, psychotic disturbance, mood disturbance, and anxiety; G62.9 Polyneuropathy, unspecified; E83.42 Hypomagnesemia; E87.6 Hypokalemia; I48.0 Paroxysmal atrial fibrillation; K76.9 Liver disease, unspecified; I25.10 Atherosclerotic heart disease of native coronary artery without angina pectoris; I10 Essential (primary) hypertension; E78.5 Hyperlipidemia, unspecified; E03.9 Hypothyroidism, unspecified; I71.4 Abdominal aortic aneurysm, without rupture; K29.70 Gastritis, unspecified, without bleeding; K21.9 Gastro-esophageal reflux disease without esophagitis; M19.90 Unspecified osteoarthritis, unspecified site; Z66 Do not resuscitate; Z79.899 Other long term (current) drug therapy; Z79.1 Long term (current) use of non-steroidal anti-inflammatories (NSAID); Z79.82 Long term (current) use of aspirin; Z93.2 Ileostomy status
CPT/HCPCS: 36569; 71010; 74020; 74177; 80048; 80053; 81001; 82378; 82533; 82550; 82607; 82728; 82746; 82805; 83540; 83550; 83735; 84100; 84484; 85025; 85027; 85610; 85730; 86850; 86900; 86901; 86920; 87040; 87070; 87088; 87205; 88304; 88305; 88307; 88309; 88313; 93005; 93010; 93306; 94002; 94003; 94640; 94761; 94762; 94799; C9113; C9290; J0131; J0330; J0696; J1120; J1160; J1335; J1650; J1720; J1756; J1885; J1940; J2270; J2405; J3010; J3475; J7030; J7040; J7050; J7070; J7120; P9016; P9047; Q9966; 97110-GP; 97116-GP; 97530-GP; J2710; S0020; S0164

== ENCOUNTER 2016-12-22 16:59 | Inpatient (IN) ==
--- NOTE | 2016-12-22 17:21 | PROVIDER DOCUMENTATION ---
HPI-Cardiac General - General Chief Complaint: Palpitations Stated Complaint: Afib Time Seen by Provider: 12/22/16 17:03 Source: family Allergies/Adverse Reactions: Patient Allergies Allergy/AdvReac Type Severity Reaction Status Date / Time Penicillins Allergy RASH Verified 07/07/16 19:26 phenytoin sodium * Allergy ANAPHYLAXIS Verified 07/07/16 19:26 [From Dilantin] phenytoin sodium extended * Allergy ANAPHYLAXIS Verified 07/07/16 19:26 [From Dilantin] Home Medications: Home Medication List Medication Instructions Recorded Confirmed Last Taken Type Aspirin 81 mg PO DAILY 11/20/16 11/29/16 11/19/16 History Diltiazem HCl [Cartia Xt] 240 mg PO DAILY 11/20/16 11/29/16 11/19/16 History Fluticasone 50 Mcg Nasal [place] 2 spray TAZ DAILY 11/20/16 11/29/16 11/19/16 History [Flonase] Gabapentin [Neurontin] 100 mg PO QHS 11/20/16 11/29/16 11/19/16 History Isosorbide Mononitrate [Isosorbide 60 mg PO DAILY 11/20/16 11/29/16 11/19/16 History Mononitrate ER] Loratadine [Claritin] 10 mg PO DAILY 11/20/16 11/29/16 11/19/16 History Multivitamin [Multivitamins] 1 each PO DAILY 11/20/16 11/29/16 11/19/16 History Tizanidine HCl 2 mg PO HS PRN 11/20/16 11/29/16 11/19/16 History Potassium Chloride E.r. [Klor-Con] 10 meq PO BID #30 tablet 11/23/16 11/29/16 Unknown Rx Cholecalciferol (Vitamin D3) 2,000 unit PO DAILY 11/29/16 11/29/16 Unknown History [D3-2000] Sennosides [Perdiem] 15 mg PO DAILY 11/29/16 11/29/16 Unknown History Albuterol 2.5MG/Ipratrop 0.5MG 3 ml INH RTQ4H #0 neb 12/17/16 Unknown Rx [Duoneb (A & A)] Hydrocodone/Acetaminophen [[place] 1 each PO 4XDAY PRN #0 12/17/16 11/29/1611/19 Rx 5-325 Tablet] Lansoprazole [Prevacid 24Hr] 30 mg PO DAILY #0 12/17/16 11/29/16 11/19/16 Rx Metoprolol [Lopressor] 25 mg PO BID #0 tablet 12/17/16 Unknown Rx Polyvinyl Alcohol Eye Drops 0 ml BOTH EYES PRN PRN #0 bottle 12/17/16 Unknown Rx [Tearisol Oph Solution] - History of Present Illness-Cardiac Nature of Presenting Problem: 86 yo WF discharged Sunday after a complex hosp stay due to GI bleeding. Had subtotal colectomy and later total colectomy. Sent to Rehab. Today patient was cold all day, had difficulty breathing and weakness as well as increased HR. Location: reports: other Quality of Pain: reports: none Severity in ED: moderate Onset/Duration: 4-6 hours ago Timing: still present Context/Activities at Onset: reports: light activity, other (recent surgery) Modifying Factors: improves with: nothing Palpitation Quality: fast/pounding heart beat History of arrythmia: reports: A-Fib Recent use of:: reports: no stimulants Aspirin Treatment Today: reports: no aspirin today Prior Chest Pain/Cardiac Workup: reports: cardiac cath Associated Symptoms: reports: weakness. denies: fever/chills, vomiting Similar Symptoms Previously?: No Recently Seen Here or By Another Healthcare Provider: Yes Review of Systems - Adult - REVIEW OF SYSTEMS - ADULT Constitutional: reports: fatique Eyes: reports: no symptoms reported Ears, Nose, Mouth & Throat: reports: no symptoms reported Cardiovascular: reports: palpitations Respiratory: reports: no symptoms reported Gastrointestinal: reports: no symptoms reported. denies: abdominal pain Genitourinary: reports: no symptoms reported Integumentary: reports: no symptoms reported Neurological: reports: no symptoms reported Psychiatric: reports: no symptoms reported Hematologic/Lymphatic: reports: no symptoms reported, low blood count Past History - Adult - PAST MEDICAL HISTORY-ADULT Review of Records: reports: Old Records Reviewed, Nursing Assessment Review, Medications Reviewed, Social history reviewed & non-contributory. Major Childhood Illnesses: reports: denies history Cardiovascular: reports: denies history Respiratory: reports: denies history Gastrointestinal: reports: denies history Obstetrical/Gynecological: reports: denies history Genitourinary: reports: denies history Musculoskeletal: reports: denies history Neurological: reports: denies history Endocrine/Immune: reports: denies history Other Conditions: reports: denies history - PRIOR SURGERIES/PROCEDURES Surgical/Procedure History: reports: recent surgery, cholecystectomy, cardiac stent, bowel surgery - PRIOR HOSPITALIZATIONS Prior Hospitalizations: reports: other (see hpi) - IMMUNIZATION STATUS Childhood Immunizations: See Nurse Assessment Flu Vaccine: See Nurse Assessment - FAMILY HISTORY Family History: reviewed, not pertinent - SOCIAL HISTORY Smoking: non-smoker Substance Use: none/never Alcohol Use Frequency: never Living Situation: family Physical Exam-General - PHYSICAL EXAM-ADULT Initial Vital Signs Reviewed: Yes - CONSTITUTIONAL General Appearance: alert, no apparent distress - EYES Eyes: pale conjunctivae - HEAD, EARS, NOSE, MOUTH & THROAT HENMT: moist mucous membranes - NECK Neck: non-tender, supple - RESPIRATORY Respiratory: chest non-tender, lungs clear, normal breath sounds, no pleuratic chest pain, no respiratory distress, no accessory muscle use - CARDIOVASCULAR Cardiovascular: normal peripheral pulses, irregularly irregular - GASTROINTESTINAL (ABDOMEN) Abdominal Exam: normal bowel sounds, non tender, soft - MUSCULOSKELETAL Back Exam: no CVA tenderness Extremity: no calf tenderness, pedal edema - SKIN Integumentary: warm/dry, pallor - NEUROLOGIC Neurologic: grossly normal - PSYCHIATRIC Psych/Mental Status: normal mood/affect, normal thought content, normal thought process, oriented x 3 Progress - PLAN OF CARE/RESULTS Progress/Plan/Lab Results: Vital Signs Temp Pulse Resp BP Pulse Ox 12/22/16 17:28 120 H 19 111/93 96 12/22/16 17:00 97.9 F 123 H 20 128/81 94 L Penicillins Allergy (Verified 07/07/16 19:26) RASH phenytoin sodium * [From Dilantin] Allergy (Verified 07/07/16 19:26) ANAPHYLAXIS phenytoin sodium extended * [From Dilantin] Allergy (Verified 07/07/16 19:26) ANAPHYLAXIS Aspirin 81 mg PO DAILY 11/20/16 Diltiazem HCl [Cartia Xt] 240 mg PO DAILY 11/20/16 Fluticasone 50 Mcg Nasal [place] [Flonase] 2 spray TAZ DAILY 11/20/16 Gabapentin [Neurontin] 100 mg PO QHS 11/20/16 Isosorbide Mononitrate [Isosorbide Mononitrate ER] 60 mg PO DAILY 11/20/16 Loratadine [Claritin] 10 mg PO DAILY 11/20/16 Multivitamin [Multivitamins] 1 each PO DAILY 11/20/16 Tizanidine HCl 2 mg PO HS PRN 11/20/16 Potassium Chloride E.r. [Klor-Con] 10 meq PO BID #30 tablet 11/23/16 Cholecalciferol (Vitamin D3) [D3-2000] 2,000 unit PO DAILY 11/29/16 Sennosides [Perdiem] 15 mg PO DAILY 11/29/16 Albuterol 2.5MG/Ipratrop 0.5MG [Duoneb (A & A)] 3 ml INH RTQ4H #0 neb 12/17/16 Hydrocodone/Acetaminophen [[place] 5-325 Tablet] 1 each PO 4XDAY PRN #0 12/17/16 Lansoprazole [Prevacid 24Hr] 30 mg PO DAILY #0 12/17/16 Metoprolol [Lopressor] 25 mg PO BID #0 tablet 12/17/16 Polyvinyl Alcohol Eye Drops [Tearisol Oph Solution] 0 ml BOTH EYES PRN PRN #0 bottle 12/17/16 Laboratory 12/22/16 12/22/16 12/22/16 17:27 17:27 17:27 WBC 5.41 RBC 3.62 L Hgb 9.6 L Hct 32.1 L MCV 88.7 MCH 26.5 L MCHC 29.9 L RDW Std Deviation 20.5 H Plt Count 269 MPV 10.6 H Immature Gran % (Auto) 0.0 Neut % (Auto) 67.3 Lymph % (Auto) 13.1 L Bacon % (Auto) 12.2 H Eos % (Auto) 6.5 Baso % (Auto) 0.9 H Immature Gran # (Auto) 0.00 Neut # (Auto) 3.64 Lymph # (Auto) 0.71 L Bacon # (Auto) 0.66 H Eos # (Auto) 0.35 Baso # (Auto) 0.05 PT 13.0 H INR 1.22 PTT (Actin FS) 28.3 D-Dimer Sodium 136 Potassium 5.2 H Chloride 98 Carbon Dioxide 28 Anion Gap 10 BUN 14 Creatinine 1.0 H Estimated GFR/1.73 m2 52 BUN/Creatinine Ratio 14 Glucose 80 Calculated Osmolality 271 Calcium 10.1 Magnesium 1.4 L Total Bilirubin 0.43 AST 19 ALT 14 Alkaline Phosphatase 59 Total Protein 5.6 L Albumin 3.0 L Globulin 2.6 Albumin/Globulin Ratio 1.2 12/22/16 17:12 WBC RBC Hgb Hct MCV MCH MCHC RDW Std Deviation Plt Count MPV Immature Gran % (Auto) Neut % (Auto) Lymph % (Auto) Bacon % (Auto) Eos % (Auto) Baso % (Auto) Immature Gran # (Auto) Neut # (Auto) Lymph # (Auto) Bacon # (Auto) Eos # (Auto) Baso # (Auto) PT INR PTT (Actin FS) D-Dimer 2.48 H Sodium Potassium Chloride Carbon Dioxide Anion Gap BUN Creatinine Estimated GFR/1.73 m2 BUN/Creatinine Ratio Glucose Calculated Osmolality Calcium Magnesium Total Bilirubin AST ALT Alkaline Phosphatase Total Protein Albumin Globulin Albumin/Globulin Ratio Orders Category Date Time Status Cardiac Monitoring DIRECTED Care 12/22/16 17:14 Active DNR [Resuscitation Status] Routine Care 12/22/16 18:24 Ordered Saline Loc NOW Care 12/22/16 17:14 Active CHEST-PORTABLE [RAD] Stat Exams 12/22/16 17:14 Completed CTA [ANGIOGRAM/PULMONARY ARTERIES] [CT] Stat Exams 12/22/16 18:23 Ordered CBC WITH ELECTRONIC DIFF [HEME] Stat Lab 12/22/16 17:27 Completed COMPREHENSIVE METABOLIC PANEL [CHEM] Stat Lab 12/22/16 17:27 Completed D-DIMER [CHEM] Stat Lab 12/22/16 17:12 Completed INFLUENZA SCREEN A/B Stat Lab 12/22/16 17:27 Completed MAGNESIUM [CHEM] Stat Lab 12/22/16 17:27 Completed PROTIME WITH INR [COAG] Stat Lab 12/22/16 17:27 Completed PTT [COAG] Stat Lab 12/22/16 17:27 Completed TYPE & SCREEN [BBK] Stat Lab 12/22/16 17:27 Received URINALYSIS [URINALYSIS] Stat Lab 12/22/16 17:15 Uncollected Digoxin [Lanoxin] Med 12/22/16 17:35 Discontinued 250 microgm IV NOW ONE Diltiazem 100 mg/Ns [Cardizem 100 mg/Ns] 100 ml Med 12/22/16 18:15 Active IV 5 mg/hr Diltiazem [Cardizem] Med 12/22/16 18:13 Discontinued 10 mg IV NOW ONE EKG [EKG] Stat Ther 12/22/16 17:07 Ordered [address] Newman who will stop by and see patient before [facility]. Departure - Departure Time of Disposition Order: 18:00 DIAGNOSIS: Weakness Atrial fibrillation Qualifiers: Atrial fibrillation type: chronic Qualified Code(s): I48.2 - Chronic atrial fibrillation Disposition: ADMITTED INPATIENT 09 Certified Medical Emergency: Urgent Condition: Serious
[2016-12-22 17:35] LABS: MANUAL DIFF NEEDED? NO
[2016-12-22] MEDS ORDERED: LANOXIN IV ONE (17:35)
[2016-12-22 17:38] LABS: BASO% 0.9 % (0.0-0.8); EOS# 0.35 X1000 (0.0-0.7); EOS% 6.5 % (0.0-10.0); HEMATOCRIT 32.1 % (37.0-47.0); HEMOGLOBIN 9.6 g/dL (12.0-16.0); LYMPH# 0.71 X1000 (1.2-3.4); LYMPH% 13.1 % (20.5-51.1); MCH 26.5 PG (27-31); MCHC 29.9 g/dL (33-37); MCV 88.7 FL (81-99); MONO# 0.66 X1000 (0.11-0.59); MONO% 12.2 % (1.7-9.3); MPV 10.6 FL (7.4-10.4); NEUT% 67.3 % (42.2-75.2); PLT 269 X1000 (130-400); RBC 3.62 XMIL (4.2-5.4)
[2016-12-22 17:57] LABS: CALCIUM 10.1 mg/dL (8.8-10.2); MAGNESIUM 1.4 mg/dL (1.5-2.7); POTASSIUM 5.2 mmol/L (3.5-5.1); TOTAL BILIRUBIN 0.43 mg/dL (0.20-1.00); TOTAL PROTEIN 5.6 g/dL (6.3-8.3)
[2016-12-22 18:06] LABS: INR 1.22; PTT 28.3 Seconds (22.0-36.0)
--- NOTE | 2016-12-22 18:07 | Diag Imaging Result Document ---
PROCEDURE NAME: CHEST-PORTABLE - 12/22/2016 PORTABLE CHEST: COMPARISON: Compared with 12/12/2016. FINDINGS: Heart size appears upper range of normal. There is apparent pulmonary edema, small bilateral pleural effusions. The pulmonary edema appears a bit decreased compared to previous exam. There is stable right perihilar opacity. There is no pneumothorax seen. IMPRESSION: Mild pulmonary edema with small bilateral pleural effusions. Stable right perihilar opacity.
[2016-12-22] MEDS ORDERED: CARDIZEM IV ONE (18:13)
[2016-12-22] MEDS: CARDIZEM 100 MG/NS 100 ML IV SCH (18:45)
[2016-12-22 18:58] LABS: URINE MICRO REVIEW NEEDED? NO; URINE SOURCE CATH
[2016-12-22 19:03] LABS: BILIRUBIN URINE NEGATIVE (NEGATIVE); BLOOD URINE NEGATIVE (NEGATIVE); COLOR YELLOW; GLUCOSE URINE NEGATIVE (NEGATIVE); LEUKOCYTES URINE NEGATIVE (NEGATIVE); NITRITE URINE NEGATIVE (NEGATIVE); PH URINE 5.5; PROTEIN URINE NEGATIVE (NEGATIVE); SP GRAVITY URINE 1.012; TURBIDITY URINE CLEAR (CLEAR); UROBILINOGEN URINE NORMAL (NORMAL)
[2016-12-22 19:04] LABS: UR EPITHELIAL CELLS <10 /HPF (<10); URINE BACTERIA NEGATIVE /HPF; URINE RBC <10 /HPF (<10); URINE WBC <10 /HPF (<10)
[2016-12-22] MEDS ORDERED: LOVENOX SUBQ ONE (20:23)
--- NOTE | 2016-12-22 20:27 | HISTORY AND PHYSICAL ---
CHIEF COMPLAINT: Shortness of breath and tachycardia. HISTORY OF PRESENT ILLNESS: Ms. Maguire is an 86-year-old, white female patient recently discharged from [facility] when patient was admitted with lower GI bleed, found to have acute blood loss anemia. HOSPITAL COURSE: The patient underwent colonoscopy and found to have colon cancer. The patient underwent right extended hemicolectomy. Postoperative course complicated by ischemic colon requiring total colectomy and ileostomy. The patient was sent to [facility] for rehabilitation. The patient was doing fair. The nurse called me today. The patient was getting more short of breath, decreased exercise tolerance, tachycardia. She was looking pale. Her heart rate was staying 110-140. Oral intake was poor. We decided to send patient to the ER for evaluation. In the emergency room the patient found to have atrial fibrillation with rapid ventricular response. The patient had bilateral leg swelling. The patient was looking pale and we decided to admit the patient for further care. The patient had elevated D-dimer. ER physician ordered CTA of the pulmonary arteries. The patient does have dementia and some confusion. She denied any typical chest pain. She did have palpitations. The patient was getting short of breath with minimal exertion. No nausea or vomiting. Patient has ileostomy. No blood in the ileostomy bag. The patient did have urinary hesitancy, bilateral leg swelling, arthritic pain in the lower back, at times in the shoulder and knee. The patient does have dementia and some confusion, unquantified weight loss. Oral intake was poor. No further history available at this time. ALLERGIES: Penicillin, phenytoin, sodium. HOME MEDICATIONS: Patient was on beta-cabrera Cardizem, [place], Claritin. I do not have updated list of her home medicines. PAST MEDICAL HISTORY: Gastritis and reflux disease, osteoarthritis, dementia, recent colon cancer and ischemic colon requiring total colectomy, coronary artery disease, hyperlipidemia, dementia, anemia most likely of chronic disease and blood loss, history suggestive of restless legs syndrome. FAMILY HISTORY: Noncontributory. REVIEW OF SYSTEMS: As per HPI. PERSONAL HISTORY: Single. Used to live by herself. Nonsmoker. Denied alcohol or substance abuse. Recently she was staying in a detention for rehabilitation. PHYSICAL EXAMINATION: GENERAL: Elderly white female patient in mild distress. The patient does look pale, tachycardic. VITAL SIGNS: On admission, blood pressure 128/81, pulse 123, respirations 20, temperature 97.9 degrees. SKIN: Senile turgor. No rash or petechiae. HEENT: Head atraumatic, normocephalic. Joseph conjunctivae. Anicteric sclerae. Extraocular muscle movement normal. Fundus cannot be penetrated. Good oral hygiene. No tonsillopharyngeal congestion or exudate. Ears and nose benign. NECK: Supple. No JVD, thyromegaly or lymphadenopathy. CHEST: Bibasilar crepitation. Decreased air entry in both bases. Occasional wheezing. CARDIOVASCULAR: S1 and S2, tachycardia, irregularly irregular, 2/6 systolic murmur at the apex. ABDOMEN: Soft, globular. Bowel sounds present. Vague tenderness left lower quadrant. 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 EXTREMITIES: No cyanosis, clubbing. 1 to 2+ pitting edema to both legs. CENTRAL NERVOUS SYSTEM: Alert, awake. Answering questions fair. The patient does have problem with recent memory. Able to move all 4 limbs. ADMISSION LAB DATA: WBC count 5.41, hemoglobin 9.6, hematocrit 32.1, platelet count 269,000. PT/INR 1.22, PTT was 28.3, D-dimer was 2.48, potassium was 5.2, calcium 10.1. Urinalysis was benign. Chest x-ray: Mild pulmonary edema with small bilateral pleural effusion. Stable right perihilar opacity. CONSIDERATION: 1. Patient admitted with atrial fibrillation with rapid ventricular response, shortness of breath, found to have mild pulmonary edema. She does have elevated D-dimer. We are going to get CTA of the pulmonary artery. Discussed with the family contrast induced nephropathy and consequences. They understood and agreed. 2. History of colon cancer, ischemic bowel, status post total colectomy and ileostomy. 3. Mild dementia. 4. Gastritis and reflux disease. 5. Osteoarthritis. 6. Hypertension. PLAN: Admit the patient. Close observation. Monitor hemoglobin and hematocrit. We will follow CTA of the pulmonary artery for result. We will check appropriate labs. Overall plan discussed at length with the patient and family. They are in agreement.
[2016-12-22] MEDS: PROTONIX IV SCH (21:13)
[2016-12-22] MEDS: SODIUM CHLORIDE 0.9% INJ SCH (21:13)
[2016-12-22] MEDS: NEURONTIN PO SCH (21:13)
[2016-12-22] MEDS: LOPRESSOR PO SCH (21:14)
[2016-12-22] MEDS: ZANAFLEX PO PRN (21:14)
[2016-12-22] MEDS ORDERED: LASIX IV ONE (21:56)
[2016-12-22] MEDS: DUONEB (A & A) INH SCH (22:15)
[2016-12-22 22:57] LABS: URINE CULTURE NEEDED? NO; URINE MICRO REVIEW NEEDED? NO; URINE SOURCE CATH
[2016-12-22 23:00] LABS: BILIRUBIN URINE NEGATIVE (NEGATIVE); BLOOD URINE NEGATIVE (NEGATIVE); COLOR YELLOW; GLUCOSE URINE NEGATIVE (NEGATIVE); LEUKOCYTES URINE NEGATIVE (NEGATIVE); NITRITE URINE NEGATIVE (NEGATIVE); PH URINE 5.5; PROTEIN URINE NEGATIVE (NEGATIVE); SP GRAVITY URINE 1.022; TURBIDITY URINE CLEAR (CLEAR); UROBILINOGEN URINE NORMAL (NORMAL)
[2016-12-22 23:01] LABS: UR EPITHELIAL CELLS <10 /HPF (<10); URINE BACTERIA 1+ /HPF; URINE RBC <10 /HPF (<10); URINE WBC <10 /HPF (<10)
[2016-12-23] MEDS: DUONEB (A & A) INH SCH ×4 (03:30→22:04)
[2016-12-23 05:15] LABS: MANUAL DIFF NEEDED? NO
[2016-12-23 05:22] LABS: BASO% 1.2 % (0.0-0.8); EOS# 0.69 X1000 (0.0-0.7); EOS% 16.3 % (0.0-10.0); HEMATOCRIT 30.7 % (37.0-47.0); HEMOGLOBIN 9.2 g/dL (12.0-16.0); LYMPH# 0.53 X1000 (1.2-3.4); LYMPH% 12.5 % (20.5-51.1); MCH 26.4 PG (27-31); MCV 88.2 FL (81-99); MONO# 0.58 X1000 (0.11-0.59); MONO% 13.7 % (1.7-9.3); MPV 10.6 FL (7.4-10.4); NEUT% 56.3 % (42.2-75.2); PLT 247 X1000 (130-400); RBC 3.48 XMIL (4.2-5.4)
[2016-12-23 05:38] LABS: ALBUMIN 2.5 g/dL (3.5-5.0); CALCIUM 9.6 mg/dL (8.8-10.2); MAGNESIUM 1.3 mg/dL (1.5-2.7); POTASSIUM 4.4 mmol/L (3.5-5.1); TOTAL BILIRUBIN 0.36 mg/dL (0.20-1.00); TOTAL PROTEIN 4.9 g/dL (6.3-8.3)
[2016-12-23] MEDS ORDERED: LASIX IV ONE (08:41)
[2016-12-23] MEDS ORDERED: IMDUR PO SCH (09:00)
[2016-12-23] MEDS ORDERED: MAGNESIUM SULFATE 2 GM/S.W.I. 50 ML IV ONE ×2 (09:00→11:15)
[2016-12-23] MEDS: ASPIRIN PO SCH (09:12)
[2016-12-23] MEDS: CARDIZEM PO SCH ×3 (09:12→20:49)
[2016-12-23] MEDS: SENOKOT PO SCH (09:12)
[2016-12-23] MEDS: LOPRESSOR PO SCH ×2 (09:12→20:48)
[2016-12-23] MEDS: CLARITIN PO SCH (09:12)
--- NOTE | 2016-12-23 09:17 | PROGRESS NOTE ---
DATE: 12/23/2016 SUBJECTIVE: Ms. Maguire admitted yesterday with shortness of breath, pallor, found to have atrial fibrillation with rapid ventricular response, pulmonary edema. The patient had elevated D-dimer. Patient had CTA of the pulmonary artery done, and it was negative for pulmonary embolism, but it did reveal pulmonary edema. The patient did receive IV Lasix. The patient was started on Cardizem. Her blood pressure dropped and Cardizem drip was discontinued. This morning, patient was complaining of scratchy throat. She denied any high-grade fever or chills. No typical chest pain. The patient does feel weak. Known case of colon cancer, ischemic bowel, status post total colectomy and ileostomy. OBJECTIVE: Vital Signs: Her vital signs noted. Blood pressure is better. Neck: Supple. No JVD. Pharynx: No congestion. CVS: S1 and S2. Tachycardia. Irregularly irregular. There is a 2/6 systolic murmur at the apex. Abdomen: Soft, globular. Patient does have ileostomy. Extremities: Patient does have bilateral leg swelling. CUSHION FILLER: Alert, awake. Answering questions well. The patient does have some dementia. LAB DATA: Lab data done today revealed hemoglobin of 9.2, hematocrit 30.7, platelet count of 247, WBC count 4.24. Electrolytes: Potassium 4.4, magnesium 1.3. I gave her magnesium supplement. X-RAYS: Chest x-ray results reviewed. CONSIDERATION: 1. Atrial fibrillation with rapid ventricular response. I am going to resume her beta cabrera and Cardizem. Will get cardiology consultation. 2. Carcinoma of colon and ischemic bowel, status post total colectomy. 3. Anemia, most likely of chronic disease and blood loss. 4. Osteoarthritis. We will continue the rest of the treatment and close observation.
--- NOTE | 2016-12-23 09:21 | Diag Imaging Result Document ---
PROCEDURE NAME: ANGIOGRAM/PULMONARY ARTERIES - 12/22/2016 CT ANGIOGRAM PULMONARY ARTERIES WITH CONTRAST: Exam performed with intravenous contrast. Axial and reformatted coronal images are obtained. A dose-reduction protocol was used. COMPARISON: No comparison exam. FINDINGS: There are no filling defects identified in the pulmonary arteries. There is no indication of aortic dissection. There are atherosclerotic calcifications noted. There is pulmonary edema with medium bilateral pleural effusions and associated compressive atelectasis. There is atelectasis at the right middle lobe. There are mild emphysematous changes. There is no pneumothorax seen. There are a few mildly prominent mediastinal lymph nodes. Included sections of upper abdomen show some ascites. The visualized upper abdominal aorta is ectatic up to 3 x 2.4 cm. IMPRESSION: 1. No evidence of pulmonary embolism. 2. Pulmonary edema with bilateral pleural effusions and associated compressive atelectasis. Atelectasis at right middle lobe. 3. Mildly prominent mediastinal lymph nodes. 4. Some upper abdominal ascites. Ectatic upper abdominal aorta at 3 x 2.4 cm. Preliminary results were provided at 8:19 p.m. on 12/22/2016.
[2016-12-23] MEDS: FLONASE NAS SCH (09:26)
[2016-12-23] MEDS ORDERED: ALBUMIN 25% IV ONE (11:16)
[2016-12-23] MEDS ORDERED: NITROGLYCERIN SL PRN (11:17)
[2016-12-23 12:10] LABS: IRON SATURATION 8 %; TIBC 216 ug/dL; TOTAL IRON 18 ug/dL (49-151); UNBOUND IRON 198 ug/dL (112-346)
--- NOTE | 2016-12-23 13:37 | CONSULTATION ---
DATE OF CONSULTATION: 12/23/2016 INTERIM CONSULTATION REASON FOR CONSULTATION: Atrial fibrillation. CHIEF COMPLAINT: Fatigue, weakness, swelling of the legs, and rapid pulse. HISTORY: Mrs. Maguire is an unfortunate 86-year-old female who was recently admitted to [facility] between 11/29/2016 and 12/18/2016. She was discharged to the [facility] on 12/18/2016, and yesterday they attempted to walk with her, and as she did that, she became very weak. They noted that her pulse became very fast, irregular. She also demonstrated swelling of the legs. They decided to send her to the emergency room for evaluation. In the ER, they noted that she was anemic with a hemoglobin of 9.6. Her BUN was 14, creatinine 1.0. Magnesium was 1.4, and she was tachycardic with atrial fibrillation, rapid response. They put her on IV Cardizem, and they decided to admit her to the hospital for further management. Since yesterday, she has been given Lasix, some magnesium supplements. She is still feeling very weak. She denies having any chest pain. Denies having any abdominal pain. She does have an ileostomy bag since her recent hospital admission. PAST MEDICAL HISTORY: Her past history is significant for coronary heart disease for many years. She has been followed by Dr. Hernandez. She has vascular disease and an abdominal aortic atherosclerotic aneurysm with some peripheral disease. Last invasive evaluation was done in July of 2014 at [facility] by Dr. Riggs. That was 08/13/2014. She has history of hypertension, dyslipidemia, gastric reflux, degenerative joint disease. She also has history of carotid artery stenosis. PAST SURGICAL HISTORY: Her surgical history is positive for the fact that she just underwent an extensive abdominal surgical procedure on 12/01/2016. At that time, they removed the gallbladder, which showed evidence of chronic cholecystitis and cholelithiasis. She had been having GI bleeding, and they found that she had a mass in the colon. They resected the right colon and terminal ileum. The pathology shows colonic adenocarcinoma, moderately differentiated, extending through the muscularis propria and into the pericolonic adipose tissue with multiple lymph nodes, 10 out of 17, positive for metastatic carcinoma. There was also an area of ischemic colitis. There was microscopic tumor perforation noted into the pericolonic adipose tissue. SOCIAL HISTORY: She lives by herself. She is single. She has two sons. They are both in the room with her today. She is not a smoker, not a drinker. FAMILY HISTORY: Family history is really noncontributory for the purposes of this admission. HOME MEDICATIONS: Her home medications at the time of this admission are as follows: She is on tizanidine 2 mg at bedtime, potassium chloride 10 mEq twice a day, multivitamin once daily, metoprolol 25 twice a day, Claritin 10 mg daily, isosorbide mononitrate 60 mg daily, fluticasone 50 mcg two sprays daily, albuterol 3 mL inhaler as needed, gabapentin 100 at bedtime, Prevacid 30 mg daily, diltiazem 240 daily, hydrocodone/acetaminophen as needed four times a day. ALLERGIES: She is allergic to penicillin, phenytoin. REVIEW OF SYSTEMS: Since her discharge to the assisted, she has been very weak. She has definitely lost weight. She has some swelling of her legs. No chest pain. No significant dyspnea. PHYSICAL EXAMINATION: Vital signs: Blood pressure today is 152/51, pulse 103, respirations 16, temperature 97.6. General: She appears to be chronically ill. HEENT: Unremarkable. She appears to be pale. Chest: Chest shows relatively clear lungs bilaterally. Cardiovascular: Heart sounds are irregularly irregular. Abdomen: Abdomen is soft. No hepatomegaly. Bowel sounds present. There is an ileostomy bag. Extremities: Extremities showed 1 to 2+ edema, soft, cold. Pulses are diminished distally. Neurological exam: She follows commands. She is very hard of hearing. IMPRESSION: 1. Patient presented with recurrent paroxysmal atrial fibrillation. 2. History of coronary heart disease status post stent. 3. History of abdominal aortic aneurysm. 4. Anemia. Probably this relates to multiple factors including nutritional anemia, low iron, etc. 5. 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 6. Patient apparently has malnutrition. Her albumin is very low. She has hypoalbuminemia. She also has hypomagnesemia. RECOMMENDATIONS: We will try to control her atrial fibrillation with IV diltiazem. We will give her oral diltiazem. We will stop the Imdur since she is not having chest pains. We will try to avoid long-acting drugs on her since she has ileostomy. Her bowel transit may be too fast, and the medicine probably is not going to be absorbed. We will try to talk to dietitian and get some advice regarding nutritional support on her. We will follow her along. Unfortunately, I believe her prognosis is very compromised because of poor nutrition and the metastatic nature of her colon cancer. She has been made do not resuscitate (DNR) level 1 by the family. Will follow her along.
[2016-12-23] MEDS: CARDIZEM 100 MG/NS 100 ML IV SCH (18:16)
[2016-12-23] MEDS: NEURONTIN PO SCH (20:48)
[2016-12-23] MEDS: PROTONIX IV SCH (20:48)
[2016-12-23] MEDS: NORCO-5 PO PRN (20:48)
[2016-12-23] MEDS: SODIUM CHLORIDE 0.9% INJ SCH (20:48)
[2016-12-23] MEDS: ZANAFLEX PO PRN (20:49)
[2016-12-24] MEDS: CARDIZEM PO SCH ×4 (03:17→20:45)
[2016-12-24] MEDS: DUONEB (A & A) INH SCH ×4 (03:52→22:55)
[2016-12-24 05:26] LABS: MANUAL DIFF NEEDED? NO
[2016-12-24 05:27] LABS: BASO% 0.8 % (0.0-0.8); EOS% 16.2 % (0.0-10.0); HEMATOCRIT 31.1 % (37.0-47.0); HEMOGLOBIN 9.4 g/dL (12.0-16.0); LYMPH# 0.92 X1000 (1.2-3.4); LYMPH% 18.6 % (20.5-51.1); MCH 26.7 PG (27-31); MCHC 30.2 g/dL (33-37); MCV 88.4 FL (81-99); MONO# 0.87 X1000 (0.11-0.59); MONO% 17.6 % (1.7-9.3); MPV 10.3 FL (7.4-10.4); NEUT% 46.8 % (42.2-75.2); PLT 238 X1000 (130-400); RBC 3.52 XMIL (4.2-5.4)
[2016-12-24 05:55] LABS: ALBUMIN 2.5 g/dL (3.5-5.0); CALCIUM 9.5 mg/dL (8.8-10.2); POTASSIUM 3.9 mmol/L (3.5-5.1); TOTAL BILIRUBIN 0.34 mg/dL (0.20-1.00); TOTAL PROTEIN 4.8 g/dL (6.3-8.3)
[2016-12-24] MEDS ORDERED: LASIX PO ONE (07:39)
--- NOTE | 2016-12-24 08:02 | PROGRESS NOTE ---
DATE: 12/24/2016 SUBJECTIVE: Mr. Maguire is feeling better. Her heart rate is improving. She denied any chest pain. Oral intake is fair. No nausea or vomiting. Leg swelling is also improving. PHYSICAL EXAMINATION: Vital Signs: Her vital signs noted. Neck: Supple. No JVD. Lungs: Bibasilar crepitations. Heart: S1 and S2 heard. Abdomen: Soft. No distention. Bowel sounds present. Ileostomy functioning well. Extremities: No cyanosis, clubbing. Leg swelling improved. HUMAN RESOURCES TALENT MANAGER: Alert, awake. Answering questions fairly well. LAB DATA: Done today revealed hemoglobin 9.4, hematocrit 31.1, platelet count 238,000. Electrolytes fairly benign. CONSIDERATION: 1. Atrial fibrillation with rapid ventricular response. 2. Congestive heart failure. 3. Anemia, multifactorial. 4. Recent total colectomy for colon cancer and ischemic bowel. PLAN: Overall, patient is doing better. Appreciate cardiology's help managing this patient. We will continue current treatment. Close observation. Overall plan discussed with the patient and she is in agreement.
[2016-12-24] MEDS ORDERED: ALBUMIN 25% IV ONE (08:55)
[2016-12-24] MEDS ORDERED: LASIX IV ONE (08:56)
[2016-12-24] MEDS ORDERED: POTASSIUM CHLORIDE 20% LIQUID PO ONE (08:56)
[2016-12-24] MEDS: CLARITIN PO SCH (08:56)
[2016-12-24] MEDS: SENOKOT PO SCH (08:57)
[2016-12-24] MEDS: ASPIRIN PO SCH (08:57)
[2016-12-24] MEDS: LOPRESSOR PO SCH ×2 (09:01→20:45)
--- NOTE | 2016-12-24 09:19 | PROGRESS NOTE ---
DATE: 12/24/2016 CHIEF COMPLAINT: Irregular heartbeat, chest discomfort. SUBJECTIVE: She is feeling better. She is eating breakfast. She has some low back pain. Otherwise, she seems to be cheerful. OBJECTIVE: Her blood pressure today is 101/53, temperature 97.4, pulse fluctuates from 90 to 120, respirations 18. She is awake, alert, in no distress. HEENT: Unremarkable. She appears to be somewhat pale. Chest: Clear to auscultation and percussion. Cardiac: Heart sounds are irregularly irregular. No gallop or murmur is noted. Abdomen: Nontender, soft. No masses. No hepatomegaly. Extremities: No obvious edema. Neurologic: She moves 4 extremities and follows commands. She is hard of hearing. DIAGNOSTIC DATA: Hemoglobin is 9.4, white count 4940, sodium 140, potassium 3.9 , BUN 12, creatinine 0.9, albumin 2.5. IMPRESSION: 1. Patient with atrial fibrillation, rapid rate. 2. The patient has malnutrition. Her prealbumin is 10.9. Her albumin is 2.5. 3. She has anemia. Hemoglobin is 9.4. 4. She is status post resection of colon cancer with metastatic lymph nodes. 5. She has coronary artery disease, previous coronary stent. She also has a history of abdominal atherosclerotic aortic aneurysm. RECOMMENDATIONS: We will add some digoxin to her regimen. We will give her an extra does of albumin. We will monitor her course. Thank you again for the opportunity to participate in her evaluation. MTDD
[2016-12-24] MEDS: CARDIZEM 100 MG/NS 100 ML IV SCH (11:07)
[2016-12-24] MEDS: FLONASE NAS SCH (11:13)
[2016-12-24] MEDS: LANOXIN IV SCH ×3 (11:20→20:45)
[2016-12-24] MEDS: ZANAFLEX PO PRN (20:44)
[2016-12-24] MEDS: SODIUM CHLORIDE 0.9% INJ SCH (20:44)
[2016-12-24] MEDS: PROTONIX IV SCH (20:44)
[2016-12-24] MEDS: NEURONTIN PO SCH (20:45)
[2016-12-24] MEDS: NORCO-5 PO PRN (20:45)
[2016-12-25] MEDS: CARDIZEM PO SCH ×5 (03:03→20:49)
[2016-12-25] MEDS: DUONEB (A & A) INH SCH ×4 (03:30→22:27)
[2016-12-25] MEDS: CARDIZEM 100 MG/NS 100 ML IV SCH (05:40)
[2016-12-25 05:46] LABS: AGAP 11; ALBUMIN 3.1 g/dL (3.5-5.0); ALKALINE PHOSPHATASE 56 U/L (32-104); BUN 10 mg/dL (8-22); CALCIUM 9.2 mg/dL (8.8-10.2); CHLORIDE 103 mmol/L (98-107); COSMO 285; GOT 13 U/L (10-30); GPT 10 U/L (10-36); MAGNESIUM 1.6 mg/dL (1.5-2.7); POTASSIUM 4.4 mmol/L (3.5-5.1); SODIUM 144 mmol/L (136-145); TCO2 30 mmol/L (25-35); TOTAL BILIRUBIN 0.39 mg/dL (0.20-1.00); TOTAL PROTEIN 4.9 g/dL (6.3-8.3)
--- NOTE | 2016-12-25 06:33 | PROGRESS NOTE ---
DATE: 12/25/2016 SUBJECTIVE: Ms. Maguire is doing fair. The patient does have paroxysmal atrial fibrillation with rapid ventricular response. Her heart rate does fluctuate, though it is improving. Blood pressure at times staying low. Oral intake is fair. No nausea or vomiting. [employer]'s recommendation reviewed. The patient denied any chest pain. The ileostomy is functioning well. No fever. The patient was admitted with atrial fibrillation with rapid ventricular response, pulmonary edema. OBJECTIVE: Vital Signs: Her vital signs are noted. Neck: Supple. No JVD. Lungs: Bibasilar few crepitations. Heart: S1 and S2 heard. Abdomen: Soft. Nontender. The ileostomy is functioning well. Extremities: No cyanosis, clubbing. Leg swelling improving. Central Nervous System: Alert, awake, able to move all 4 limbs. CONSIDERATIONS: 1. Atrial fibrillation with rapid ventricular response. 2. Pulmonary edema. 3. Colon cancer. 4. Ischemic bowel. 5. Allergic rhinitis. 6. Chronic pain. PLAN: Overall, the patient is doing fair. We will continue current treatment. Close observation. Labs done today. Electrolytes were fairly benign. Chest x-ray results pending. I am going to discontinue Shrestha catheter. I am going to decrease her Lasix to 20 mg. Discuss with the sanipractic physician about discharge planning.
[2016-12-25] MEDS ORDERED: MAGNESIUM SULFATE 2 GM/S.W.I. 50 ML IV ONE (07:51)
--- NOTE | 2016-12-25 08:04 | EKG Report ---
Test Performed on : 12/25/2016 06:59:48 AM Test Reason : atrial fibrillation Blood Pressure : / mmHG Vent. Rate : 069 BPM Atrial Rate : 234 BPM P-R Int : 000 ms QRS Dur : 072 ms QT Int : 378 ms P-R-T Axes : 000 041 222 degrees QTc Int : [address] & Marked T wave abnormality, consider anterolateral ischemia Abnormal ECG When compared with ECG of 22-DEC-2016 17:06, (Unconfirmed) Vent. rate has decreased BY 58 BPM Confirmed by Teodoro LOWE, Brice Mclaughlin ([id number]) on 12/25/2016 4:27:08 PM
[2016-12-25] MEDS: ASPIRIN PO SCH (08:40)
[2016-12-25] MEDS: SENOKOT PO SCH (08:40)
[2016-12-25] MEDS: LOPRESSOR PO SCH ×2 (08:42→20:49)
[2016-12-25] MEDS: FLONASE NAS SCH (08:43)
[2016-12-25] MEDS: CLARITIN PO SCH (08:43)
[2016-12-25] MEDS ORDERED: LANOXIN PO SCH (09:00)
--- NOTE | 2016-12-25 09:17 | EKG Report ---
Test Performed on : 12/22/2016 5:06:28 PM Test Reason : CP Blood Pressure : / mmHG Vent. Rate : 127 BPM Atrial Rate : 133 BPM P-R Int : 000 ms QRS Dur : 074 ms QT Int : 266 ms P-R-T Axes : 000 019 227 degrees QTc Int : 386 ms Atrial fibrillation. with rapid ventricular response. Septal infarct , age undetermined Marked ST abnormality, possible inferior subendocardial injury Abnormal ECG When compared with ECG of 14-DEC-2016 06:39, Septal infarct is now present Unconfirmed Result
--- NOTE | 2016-12-25 10:07 | Diag Imaging Result Document ---
PROCEDURE NAME: CHEST-2 VIEWS - 12/25/2016 TWO VIEWS OF THE CHEST: FINDINGS: There is bilateral pleural fluid. There is apparent interstitial pulmonary edema. Compared to 12/22/2016, there has been no appreciable change. There is more pleural fluid than on 12/12/2016. IMPRESSION: Pulmonary edema and pleural effusions.
--- NOTE | 2016-12-25 10:34 | PROGRESS NOTE ---
DATE: 12/25/2016 CHIEF COMPLAINT: Weakness, irregular heartbeat. SUBJECTIVE: The patient is not having any discomfort in the chest at this time, she just feels weak. She has the feeling of generalized fatigue and tiredness. OBJECTIVE: Blood pressure is 117/56, temperature 98.2, pulse 63, respirations 21. She is awake, alert and oriented, in no distress. HEENT is unremarkable. Chest shows diminished breath sounds at the bases. Heart sounds are irregularly irregular. Abdomen is nontender, soft. No masses. No hepatomegaly. Extremities show decreased pulses. No edema. Neurologic: Follows commands. She is very hard of hearing. DIAGNOSTIC DATA: Sodium is 144, potassium is 4.4, BUN is 10, creatinine 0.8. Her magnesium is 1.6. IMPRESSION: 1. The patient presented with chest discomfort, weakness, irregular heartbeat and rapid atrial fibrillation. She is doing better in all of these aspects. 2. The patient has colon cancer with metastatic lymph nodes. 3. History of atherosclerotic aortic aneurysm. 4. Malnutrition. RECOMMENDATIONS: We will continue to work on trying to control her heart rate medically with low dose of digoxin perhaps every other day, diltiazem low dose and metoprolol low dose. The patient perhaps could go to the rehab again in a day or two.
[2016-12-25] MEDS: PROTONIX IV SCH (20:49)
[2016-12-25] MEDS: NEURONTIN PO SCH (20:49)
[2016-12-26] MEDS: DUONEB (A & A) INH SCH ×4 (02:38→22:42)
[2016-12-26] MEDS: CARDIZEM 100 MG/NS 100 ML IV SCH ×2 (03:18→23:53)
[2016-12-26] MEDS: CARDIZEM PO SCH ×4 (03:20→21:12)
[2016-12-26 05:07] LABS: MANUAL DIFF NEEDED? NO
[2016-12-26 05:13] LABS: BASO% 0.7 % (0.0-0.8); EOS# 0.64 X1000 (0.0-0.7); EOS% 11.1 % (0.0-10.0); LYMPH# 0.76 X1000 (1.2-3.4); LYMPH% 13.2 % (20.5-51.1); MCH 26.5 PG (27-31); MCHC 30.3 g/dL (33-37); MCV 87.5 FL (81-99); MONO# 0.72 X1000 (0.11-0.59); MONO% 12.5 % (1.7-9.3); MPV 9.9 FL (7.4-10.4); NEUT% 62.5 % (42.2-75.2); PLT 245 X1000 (130-400); RBC 3.77 XMIL (4.2-5.4)
[2016-12-26 05:35] LABS: AGAP 11; ALKALINE PHOSPHATASE 60 U/L (32-104); BUN 7 mg/dL (8-22); CHLORIDE 100 mmol/L (98-107); COSMO 275; DIGOXIN 1.6 ng/mL (0.9-2.0); GOT 16 U/L (10-30); GPT 10 U/L (10-36); SODIUM 139 mmol/L (136-145); TCO2 28 mmol/L (25-35); TOTAL BILIRUBIN 0.55 mg/dL (0.20-1.00); TOTAL PROTEIN 5.5 g/dL (6.3-8.3)
[2016-12-26] MEDS ORDERED: LASIX IV ONE (06:38)
--- NOTE | 2016-12-26 07:41 | EKG Report ---
Test Performed on : 12/26/2016 06:29:13 AM Test Reason : atrial fibrillation Blood Pressure : / mmHG Vent. Rate : 070 BPM Atrial Rate : 085 BPM P-R Int : 000 ms QRS Dur : 072 ms QT Int : 380 ms P-R-T Axes : 000 039 229 degrees QTc Int : [address] & Marked T wave abnormality, consider anterolateral ischemia Abnormal ECG When compared with ECG of 25-DEC-2016 06:59, No significant change was found Confirmed by Teodoro LOWE, Brice Mclaughlin ([id number]) on 12/26/2016 5:23:43 PM
--- NOTE | 2016-12-26 08:25 | PROGRESS NOTE ---
DATE: 12/26/2016 SUBJECTIVELY: Ms. Maguire is doing fair. The patient does get short of breath with minimal exertion. No typical chest pain. She does have some orthopnea. Chest x-ray done yesterday did reveal pulmonary edema and pleural effusion. Her heart rate is under control. Oral intake is variable. I am going to decrease her Lanoxin every other day. Give her Lasix. OBJECTIVE: Vital Signs: Vital signs reviewed. Lungs: Bibasilar rales. CVS: 2-3/6 systolic murmur at the apex. Abdomen: Soft, globular. Bowel sounds present. Ileostomy is in place. Extremities: No cyanosis, clubbing. No acute DVT. MEDIA LIAISON OFFICER: Alert, awake, able to move all 4 limbs. CONSIDERATION/ASSESSMENT: 1. Atrial fibrillation with rapid ventricular response. Clinically, patient is doing better. Rate is under better control. 2. Pulmonary edema. We will give her IV Lasix. 3. Metastatic colon cancer. 4. Dementia. OVERALL PLAN: Discussed with patient and family. They are in agreement. Pharmacy Benefit Manager following patient with us.
[2016-12-26] MEDS: SENOKOT PO SCH (08:51)
[2016-12-26] MEDS: CLARITIN PO SCH (08:51)
[2016-12-26] MEDS: LOPRESSOR PO SCH ×2 (08:51→21:13)
[2016-12-26] MEDS: ASPIRIN PO SCH (08:51)
[2016-12-26] MEDS: FLONASE NAS SCH (11:37)
[2016-12-26] MEDS: PROTONIX IV SCH (21:12)
[2016-12-26] MEDS: SODIUM CHLORIDE 0.9% INJ SCH (21:12)
[2016-12-26] MEDS: NEURONTIN PO SCH (21:13)
[2016-12-26] MEDS: NORCO-5 PO PRN (21:32)
[2016-12-27] MEDS: DUONEB (A & A) INH SCH ×4 (02:41→15:45)
[2016-12-27] MEDS: CARDIZEM PO SCH ×4 (03:12→21:57)
[2016-12-27 05:51] LABS: HEMATOCRIT 32.9 % (37.0-47.0); HEMOGLOBIN 9.9 g/dL (12.0-16.0); MCH 26.6 PG (27-31); MCHC 30.1 g/dL (33-37); MCV 88.4 FL (81-99); MPV 10.3 FL (7.4-10.4); RBC 3.72 XMIL (4.2-5.4)
[2016-12-27 06:21] LABS: AGAP 11; ALKALINE PHOSPHATASE 59 U/L (32-104); BUN 8 mg/dL (8-22); CALCIUM 9.2 mg/dL (8.8-10.2); CHLORIDE 100 mmol/L (98-107); COSMO 277; GOT 19 U/L (10-30); GPT 10 U/L (10-36); MAGNESIUM 1.4 mg/dL (1.5-2.7); POTASSIUM 3.8 mmol/L (3.5-5.1); SODIUM 140 mmol/L (136-145); TCO2 29 mmol/L (25-35); TOTAL BILIRUBIN 0.69 mg/dL (0.20-1.00); TOTAL PROTEIN 5.4 g/dL (6.3-8.3)
[2016-12-27] MEDS ORDERED: MAGNESIUM SULFATE 2 GM/S.W.I. 50 ML IV ONE ×2 (06:37→14:07)
[2016-12-27] MEDS ORDERED: LASIX IV ONE ×2 (06:38→15:00)
[2016-12-27] MEDS ORDERED: KLOR-CON PO ONE (06:39)
--- NOTE | 2016-12-27 06:57 | EKG Report ---
Test Performed on : 12/27/2016 06:20:28 AM Test Reason : atrial fibrillation Blood Pressure : / mmHG Vent. Rate : 082 BPM Atrial Rate : 096 BPM P-R Int : 000 ms QRS Dur : 078 ms QT Int : 364 ms P-R-T Axes : 000 031 231 degrees QTc Int : [address] & T wave abnormality, consider inferior ischemia ST & T wave abnormality, consider anterolateral ischemia Abnormal ECG When compared with ECG of 26-DEC-2016 06:29, No significant change was found Confirmed by Teodoro LOWE, Brice Mclaughlin ([id number]) on 12/28/2016 9:28:16 AM
[2016-12-27] MEDS: NORCO-5 PO PRN (06:58)
--- NOTE | 2016-12-27 07:19 | PROGRESS NOTE ---
DATE: 12/27/2016 SUBJECTIVE: Ms. Maguire is doing fair. Mild nausea, poor oral intake, and shortness of breath with exertion. The patient admitted with atrial fibrillation with rapid ventricular response. Her rate is under better control. The patient does have pulmonary edema. Telemetry at times ventricular tachycardia. The patient is asymptomatic. Her magnesium level was low. I am going to supplement her magnesium. Because of poor appetite, her Lanoxin level was 1.6 yesterday. I changed Lanoxin to every other day, but I am going to hold it for few days and then resume. I am going to increase preload dual rate dealer. OBJECTIVE: Vital Signs: Her vital signs are noted. Neck: Supple. No JVD. Lungs: Bilateral good air entry present. Bibasilar few rales. Cardiovascular: S1 and S2. Irregularly irregular. Abdomen: Soft, globular. Bowel sounds present. Ileostomy functioning well. Extremities: No cyanosis, clubbing. Leg swelling much better. No acute DVT. Central Nervous System: Alert, awake, able to move all 4 limbs. DIAGNOSTIC DATA: The lab data done today, hemoglobin 9.9, hematocrit 32.9, platelet count 239,000, WBC count 6.17. Potassium 3.8, magnesium 1.4. PLAN: I am going to give her some extra potassium and supplement magnesium. We will give her more Lasix today. Repeat chest x-ray and blood work tomorrow. The overall plan was discussed with the daughter. She is in agreement. I am going to add a small dose of afterload dual rate dealer. The overall prognosis is fair to guarded. PROBLEM LIST: Her problems include: 1. Pulmonary edema. 2. Atrial fibrillation with rapid ventricular response. The rate is under better control. 3. Metastatic colon cancer. 4. Osteoarthritis. The patient is not ready to be discharged yet.
[2016-12-27] MEDS: COZAAR PO SCH (08:12)
[2016-12-27] MEDS: CLARITIN PO SCH (08:12)
[2016-12-27] MEDS: ASPIRIN PO SCH (08:12)
[2016-12-27] MEDS: SENOKOT PO SCH (08:12)
[2016-12-27] MEDS: LOPRESSOR PO SCH ×2 (08:12→21:57)
[2016-12-27] MEDS: FLONASE NAS SCH (08:13)
[2016-12-27] MEDS ORDERED: LANOXIN PO SCH (09:00)
[2016-12-27] MEDS: ALDACTONE PO SCH (17:20)
[2016-12-27] MEDS: CARDIZEM 100 MG/NS 100 ML IV SCH (17:21)
[2016-12-27] MEDS: PROTONIX IV SCH (21:57)
[2016-12-27] MEDS: NEURONTIN PO SCH (21:57)
[2016-12-27] MEDS: SODIUM CHLORIDE 0.9% INJ SCH (21:57)
[2016-12-28] MEDS: ZANAFLEX PO PRN (01:10)
[2016-12-28] MEDS: DUONEB (A & A) INH SCH ×5 (03:33→22:33)
[2016-12-28 05:44] LABS: AGAP 11; ALKALINE PHOSPHATASE 55 U/L (32-104); BUN 7 mg/dL (8-22); CALCIUM 8.9 mg/dL (8.8-10.2); CHLORIDE 97 mmol/L (98-107); COSMO 274; GOT 16 U/L (10-30); GPT 10 U/L (10-36); MAGNESIUM 1.8 mg/dL (1.5-2.7); POTASSIUM 3.6 mmol/L (3.5-5.1); SODIUM 138 mmol/L (136-145); TCO2 30 mmol/L (25-35); TOTAL BILIRUBIN 0.56 mg/dL (0.20-1.00); TOTAL PROTEIN 5.2 g/dL (6.3-8.3)
[2016-12-28] MEDS ORDERED: LASIX IV ONE (06:25)
--- NOTE | 2016-12-28 06:51 | PROGRESS NOTE ---
DATE: 12/28/2016 SUBJECTIVE: Ms. Maguire is doing fair. Oral intake is fair to poor. Her heart rate is under control. The patient is tolerating diuresis well. Shortness of breath is better. Environmental Protection Officer evaluated the patient yesterday, added Aldactone. PHYSICAL EXAMINATION: Vital Signs: Her vital signs reviewed. Neck: Supple. No JVD. Lungs: Bilateral good air entry present. Few basal crepitations. CVS: S1 and S2 heard. Abdomen: Soft, globular. The ileostomy is functioning well. Extremities: No cyanosis, clubbing. Central Nervous System: Alert, awake. Able to move all 4 limbs. LABORATORY DATA: Done today, potassium 3.8, BUN 7, creatinine 0.5. Magnesium was 1.8. CONSIDERATION: 1. Atrial fibrillation with rapid ventricular response. Rate is better controlled. Yesterday, at times 104. I am going to resume her Lanoxin. 2. Pulmonary edema. The patient is tolerating diuresis well. 3. Metastatic colon cancer. 4. Mild dementia. 5. Osteoarthritis. 6. The patient did have nonsustained ventricular tachycardia. PLAN: We will continue current treatment. Environmental Protection Officer's recommendation reviewed. I discuss patient's condition with her daughter. Overall prognosis is poor. We are planning to discharge her to a correction tomorrow.
--- NOTE | 2016-12-28 07:03 | EKG Report ---
Test Performed on : 12/28/2016 06:45:04 AM Test Reason : afib Blood Pressure : / mmHG Vent. Rate : 099 BPM Atrial Rate : 115 BPM P-R Int : 000 ms QRS Dur : 072 ms QT Int : 296 ms P-R-T Axes : 000 048 239 degrees QTc Int : 379 ms Atrial fibrillation. Marked ST abnormality, possible inferior subendocardial injury Abnormal ECG When compared with ECG of 27-DEC-2016 06:20, (Unconfirmed) No significant change was found Confirmed by Teodoro LOWE, Brice Mclaughlin ([id number]) on 12/28/2016 9:31:46 AM
[2016-12-28] MEDS: ALDACTONE PO SCH (08:27)
[2016-12-28] MEDS: SENOKOT PO SCH (08:27)
[2016-12-28] MEDS: ASPIRIN PO SCH (08:27)
[2016-12-28] MEDS: CARDIZEM CD PO SCH (08:27)
[2016-12-28] MEDS: COZAAR PO SCH (08:27)
[2016-12-28] MEDS: LOPRESSOR PO SCH ×2 (08:27→20:30)
[2016-12-28] MEDS: CLARITIN PO SCH (08:28)
[2016-12-28] MEDS: FLONASE NAS SCH (08:28)
[2016-12-28] MEDS: LANOXIN PO SCH (08:36)
--- NOTE | 2016-12-28 09:23 | Diag Imaging Result Document ---
PROCEDURE NAME: CHEST-PORTABLE - 12/28/2016 PORTABLE CHEST X-RAY: COMPARISON: 12/25/2016. FINDINGS: There has probably been some redistribution of the right-sided effusion. Otherwise, stable cardiomegaly, pulmonary vascular congestion, and pulmonary edema. Stable left-sided effusion as well. IMPRESSION: No significant change from prior.
[2016-12-28] MEDS: CARDIZEM 100 MG/NS 100 ML IV SCH (15:01)
[2016-12-28] MEDS: NEURONTIN PO SCH (20:30)
[2016-12-28] MEDS: PROTONIX IV SCH (20:30)
[2016-12-28] MEDS: NORCO-5 PO PRN (20:33)
[2016-12-29] MEDS: DUONEB (A & A) INH SCH ×3 (03:19→22:08)
[2016-12-29 05:32] LABS: MANUAL DIFF NEEDED? NO
[2016-12-29 05:37] LABS: BASO% 0.5 % (0.0-0.8); EOS% 14.7 % (0.0-10.0); HEMATOCRIT 32.5 % (37.0-47.0); HEMOGLOBIN 9.8 g/dL (12.0-16.0); LYMPH# 0.82 X1000 (1.2-3.4); LYMPH% 13.4 % (20.5-51.1); MCH 26.1 PG (27-31); MCHC 30.2 g/dL (33-37); MCV 86.4 FL (81-99); MONO# 0.82 X1000 (0.11-0.59); MONO% 13.4 % (1.7-9.3); MPV 10.1 FL (7.4-10.4); PLT 216 X1000 (130-400); RBC 3.76 XMIL (4.2-5.4)
[2016-12-29 05:56] LABS: AGAP 10; ALKALINE PHOSPHATASE 62 U/L (32-104); BUN 9 mg/dL (8-22); CALCIUM 8.9 mg/dL (8.8-10.2); CHLORIDE 97 mmol/L (98-107); COSMO 274; GOT 19 U/L (10-30); GPT 10 U/L (10-36); MAGNESIUM 1.5 mg/dL (1.5-2.7); POTASSIUM 3.5 mmol/L (3.5-5.1); SODIUM 138 mmol/L (136-145); TCO2 31 mmol/L (25-35); TOTAL BILIRUBIN 0.56 mg/dL (0.20-1.00); TOTAL PROTEIN 5.5 g/dL (6.3-8.3)
[2016-12-29] MEDS ORDERED: LASIX IV ONE ×2 (06:25→15:00)
--- NOTE | 2016-12-29 07:51 | PROGRESS NOTE ---
DATE: 12/29/2016 SUBJECTIVE: Ms. Maguire is doing better. She was able to ambulate well yesterday. Oral intake is poor. No fever or chills. Mild cough. Her chest x-ray done yesterday is still showing pulmonary edema and no significant change. Stable left-sided pleural effusion. The patient does have some situational depression. OBJECTIVE: Vital Signs: Her vital signs noted. Neck: Supple. No JVD. Lungs: Decreased air entry, left base. Few basal crepitations. CVS: S1 and S2 heard. Abdomen: Soft, globular. Bowel sounds present. Ileostomy is in place. No acute DVT. BEHAVIORAL HEALTH COUNSELOR: Alert, awake. Able to move all 4 limbs. CONSIDERATION: 1. Pulmonary edema. Chest x-ray still showing the same. The patient is on Cardizem, beta cabrera, Aldactone, IV Lasix. She does have atrial fibrillation. Rate is well controlled other than when she exerts. She is not a candidate for anticoagulation. We will continue current treatment. 2. Cancer of the colon with possible metastasis. 3. Situational depression. 4. Osteoarthritis. LAB DATA: Done today, hemoglobin is stable. White count is normal. Electrolytes fairly benign. PLAN: I am going to check proBNP. Continue rest of the treatment and close observation.
[2016-12-29] MEDS: LOPRESSOR PO SCH ×2 (09:59→21:31)
[2016-12-29] MEDS: CLARITIN PO SCH (09:59)
[2016-12-29] MEDS: CARDIZEM CD PO SCH (09:59)
[2016-12-29] MEDS: SENOKOT PO SCH (09:59)
[2016-12-29] MEDS: COZAAR PO SCH (09:59)
[2016-12-29] MEDS: ASPIRIN PO SCH (09:59)
[2016-12-29] MEDS: ALDACTONE PO SCH (09:59)
[2016-12-29] MEDS: FLONASE NAS SCH (10:00)
[2016-12-29] MEDS: CARDIZEM 100 MG/NS 100 ML IV SCH (10:04)
[2016-12-29] MEDS: PROTONIX IV SCH (21:31)
[2016-12-29] MEDS: NEURONTIN PO SCH (21:31)
[2016-12-29] MEDS: REMERON PO SCH (21:31)
[2016-12-30] MEDS: DUONEB (A & A) INH SCH ×6 (02:48→21:12)
[2016-12-30] MEDS: CARDIZEM 100 MG/NS 100 ML IV SCH (06:41)
[2016-12-30] MEDS: LANOXIN PO SCH (09:02)
[2016-12-30] MEDS: SENOKOT PO SCH (09:02)
[2016-12-30] MEDS: LOPRESSOR PO SCH ×2 (09:02→21:15)
[2016-12-30] MEDS: FLONASE NAS SCH (09:02)
[2016-12-30] MEDS: CLARITIN PO SCH (09:03)
[2016-12-30] MEDS: COZAAR PO SCH (09:03)
[2016-12-30] MEDS: CARDIZEM CD PO SCH (09:03)
[2016-12-30] MEDS: ASPIRIN PO SCH (09:03)
[2016-12-30] MEDS: ALDACTONE PO SCH (09:03)
--- NOTE | 2016-12-30 10:02 | PROGRESS NOTE ---
DATE: 12/30/2016 SUBJECTIVE: Ms. Maguire is doing fair. The patient does feel short of breath, no chest pain or palpation. Oral intake is poor. OBJECTIVE: Vital signs: Reviewed. At time, the patient is tachycardic. Lungs: Bibasilar crepitation. Heart: S1 and S2, irregularly irregular. Abdomen: Soft, globular, bowel sounds present. Extremities: No cyanosis, clubbing, no acute DVT. WARE CARRIER: Alert, awake, able to move all 4 limbs. CONSIDERATION: 1. Pulmonary edema. 2. Atrial fibrillation with rapid ventricular rate. 3. Metastatic colon cancer. 4. Situational depression. I added Remeron yesterday. Continue rest of the treatment. I am going to get Cardiology followup which I requested yesterday. Will continue Lasix. Close observation. Overall progression poor. PLAN: Discussed with patient's family. They are in agreement.
[2016-12-30] MEDS: LASIX IV SCH ×2 (11:14→21:14)
[2016-12-30 11:33] LABS: URINE SOURCE CATH
[2016-12-30 11:42] LABS: BILIRUBIN URINE NEGATIVE (NEGATIVE); BLOOD URINE NEGATIVE (NEGATIVE); COLOR YELLOW; GLUCOSE URINE NEGATIVE (NEGATIVE); LEUKOCYTES URINE LARGE (NEGATIVE); NITRITE URINE NEGATIVE (NEGATIVE); PROTEIN URINE 30 mg/dL (NEGATIVE); SP GRAVITY URINE 1.008; TURBIDITY URINE HAZY (CLEAR); UROBILINOGEN URINE NORMAL (NORMAL)
[2016-12-30 11:43] LABS: URINE MICRO REVIEW NEEDED? YES
[2016-12-30 11:46] LABS: UR EPITHELIAL CELLS <10 /HPF (<10); URINE BACTERIA 4+ /HPF; URINE CULTURE NEEDED? YES; URINE RBC <10 /HPF (<10); URINE WBC TNTC /HPF (<10)
[2016-12-30 11:53] LABS: URINE CASTS NONE SEEN; URINE CRYSTALS NONE SEEN
[2016-12-30 11:54] LABS: URINE SMALL ROUND CELLS RENAL PRESENT
[2016-12-30] MEDS: NORCO-5 PO PRN (16:24)
[2016-12-30] MEDS: LEVAQUIN 250 MG/D5W 50 ML IV SCH (16:41)
[2016-12-30] MEDS: REMERON PO SCH (21:14)
[2016-12-30] MEDS: KLOR-CON PO SCH (21:14)
[2016-12-30] MEDS: NEURONTIN PO SCH (21:15)
[2016-12-30] MEDS: PROTONIX IV SCH (21:28)
[2016-12-30] MEDS: SODIUM CHLORIDE 0.9% INJ SCH (21:28)
[2016-12-31] MEDS: DUONEB (A & A) INH SCH ×5 (03:32→22:48)
[2016-12-31] MEDS: CARDIZEM 100 MG/NS 100 ML IV SCH ×2 (04:54→22:27)
[2016-12-31 06:20] LABS: BASO% 1.6 % (0.0-0.8); EOS# 1.29 X1000 (0.0-0.7); EOS% 20.9 % (0.0-10.0); HEMATOCRIT 36.7 % (37.0-47.0); HEMOGLOBIN 11.4 g/dL (12.0-16.0); IMM GRAN# 0.02 X1000 (0.0-0.04); IMM GRAN% 0.3 % (0.0-0.5); LYMPH# 1.11 X1000 (1.2-3.4); MANUAL DIFF NEEDED? YES; MCH 26.8 PG (27-31); MCHC 31.1 g/dL (33-37); MCV 86.4 FL (81-99); MONO# 1.02 X1000 (0.11-0.59); MONO% 16.5 % (1.7-9.3); MPV 10.2 FL (7.4-10.4); NEUT% 42.7 % (42.2-75.2); PLT 199 X1000 (130-400); RBC 4.25 XMIL (4.2-5.4)
[2016-12-31 06:31] LABS: AGAP 14; ALBUMIN 3.2 g/dL (3.5-5.0); ALKALINE PHOSPHATASE 65 U/L (32-104); BUN 9 mg/dL (8-22); CALCIUM 9.1 mg/dL (8.8-10.2); CHLORIDE 93 mmol/L (98-107); COSMO 272; GOT 24 U/L (10-30); GPT 14 U/L (10-36); MAGNESIUM 1.2 mg/dL (1.5-2.7); POTASSIUM 3.5 mmol/L (3.5-5.1); SODIUM 137 mmol/L (136-145); TCO2 30 mmol/L (25-35); TOTAL BILIRUBIN 0.54 mg/dL (0.20-1.00); TOTAL PROTEIN 5.3 g/dL (6.3-8.3)
[2016-12-31 07:17] LABS: EOS 19 % (1-10); LYMPHS 22 % (21-51); MONO 6 % (1-9)
--- NOTE | 2016-12-31 07:43 | Diag Imaging Result Document ---
PROCEDURE NAME: CHEST-PORTABLE - 12/31/2016 PORTABLE CHEST: COMPARISON: Compared to 12/28/2016. FINDINGS: The lungs are well expanded. There are small pleural effusions. The heart is mildly enlarged. Infiltrates and pulmonary edema are less pronounced than on the prior exam. Left pleural effusion has decreased in size. IMPRESSION: Overall interval improvement.
[2016-12-31] MEDS: LOPRESSOR PO SCH ×2 (09:05→20:19)
[2016-12-31] MEDS: SENOKOT PO SCH (09:05)
[2016-12-31] MEDS: ALDACTONE PO SCH (09:05)
[2016-12-31] MEDS: COZAAR PO SCH (09:05)
[2016-12-31] MEDS: LASIX IV SCH ×2 (09:05→20:20)
[2016-12-31] MEDS: KLOR-CON PO SCH ×2 (09:05→20:19)
[2016-12-31] MEDS: CARDIZEM CD PO SCH (09:06)
[2016-12-31] MEDS: FLONASE NAS SCH (09:06)
[2016-12-31] MEDS: ASPIRIN PO SCH (09:06)
[2016-12-31] MEDS: CLARITIN PO SCH (09:06)
[2016-12-31] MEDS ORDERED: KLOR-CON PO ONE (09:50)
--- NOTE | 2016-12-31 10:13 | PROGRESS NOTE ---
DATE: 12/31/2016 SUBJECTIVE: Ms. Maguire is doing better. The patient is resting well with Remeron. She denied any nausea or vomiting. Shortness of breath is some better. Tolerating Lasix well. No high- grade fever or chills. Her urine showed UTI. I started the patient on Levaquin. OBJECTIVE: Vital signs: Noted. Lungs: Bilateral air entry present. CVS: There is a 2 to 3/6 systolic murmur at the apex. Abdomen: Soft, globular. Bowel sounds present. MATHEMATICAL STATISTICIAN: Alert, awake. Able to move all 4 limbs. CONSIDERATION: 1. Atrial fibrillation with rapid ventricular response. 2. Pulmonary edema. Chest x-ray did show improvement. I am going to continue Lasix. 3. Lab data did reveal low magnesium. I am going to supplement magnesium. 4. Urinary tract infection. Will continue Levaquin. 5. The patient is on Remeron for situational depression. 6. Patient had a recent gastrointestinal bleed. The patient was not on Lovenox. Before I start her on any deep vein thrombosis measures, I want to have a baseline venous Doppler of the lower limbs. PLAN: Overall plan discussed with the patient and family and they are in agreement. Her potassium was 3.5. The patient is on Aldactone. I am going to add some potassium.
[2016-12-31] MEDS ORDERED: MAGNESIUM SULFATE 2 GM/S.W.I. 50 ML IV ONE (11:00)
[2016-12-31] MEDS ORDERED: ELIQUIS PO SCH (11:30)
[2016-12-31] MEDS: LEVAQUIN 250 MG/D5W 50 ML IV SCH (16:08)
[2016-12-31] MEDS: LOVENOX SUBQ SCH (17:10)
[2016-12-31] MEDS: NEURONTIN PO SCH (20:19)
[2016-12-31] MEDS: REMERON PO SCH (20:19)
[2016-12-31] MEDS: SODIUM CHLORIDE 0.9% INJ SCH (20:20)
[2016-12-31] MEDS: PROTONIX IV SCH (20:20)
[2016-12-31] MEDS ORDERED: LOVENOX SUBQ SCH (21:00)
[2016-12-31] MEDS ORDERED: XARELTO PO SCH (21:00)
[2017-01-01] MEDS: DUONEB (A & A) INH SCH ×4 (03:29→19:24)
--- NOTE | 2017-01-01 03:41 | PROGRESS NOTE ---
DATE: 12/31/2016 I did a venous Doppler study and it was positive for DVT involving the peroneal vein. This was a preliminary report. Initially, I gave her Eliquis but then considering her age and other medical problems, I decided to go with Lovenox and Coumadin. Discussed with foil wrapper and oncologist, Dr. Guerrero. The risks and benefits of anticoagulation discussed with her family. The patient does have multiple medical problems including a history of colon cancer with possible metastasis, congestive heart failure, history of atrial fibrillation, osteoarthritis. We will continue monitoring prothrombin time.
[2017-01-01] MEDS: LOVENOX SUBQ SCH ×2 (04:19→16:26)
[2017-01-01 05:32] LABS: MANUAL DIFF NEEDED? NO
[2017-01-01 05:50] LABS: BASO% 0.9 % (0.0-0.8); EOS# 0.89 X1000 (0.0-0.7); EOS% 16.2 % (0.0-10.0); HEMATOCRIT 33.9 % (37.0-47.0); HEMOGLOBIN 10.4 g/dL (12.0-16.0); LYMPH# 0.81 X1000 (1.2-3.4); LYMPH% 14.7 % (20.5-51.1); MCH 26.3 PG (27-31); MCHC 30.7 g/dL (33-37); MCV 85.8 FL (81-99); MONO# 0.76 X1000 (0.11-0.59); MONO% 13.8 % (1.7-9.3); MPV 10.7 FL (7.4-10.4); NEUT% 54.4 % (42.2-75.2); PLT 206 X1000 (130-400); RBC 3.95 XMIL (4.2-5.4)
[2017-01-01 06:27] LABS: INR 1.36; PROTIME 13.8 Seconds (9.2-11.7)
[2017-01-01] MEDS ORDERED: COUMADIN PO ONE (06:33)
[2017-01-01 06:42] LABS: AGAP 11; ALKALINE PHOSPHATASE 63 U/L (32-104); BUN 9 mg/dL (8-22); CALCIUM 8.9 mg/dL (8.8-10.2); CHLORIDE 94 mmol/L (98-107); COSMO 268; GOT 23 U/L (10-30); GPT 14 U/L (10-36); MAGNESIUM 1.5 mg/dL (1.5-2.7); POTASSIUM 4.3 mmol/L (3.5-5.1); SODIUM 135 mmol/L (136-145); TCO2 30 mmol/L (25-35); TOTAL PROTEIN 5.5 g/dL (6.3-8.3)
[2017-01-01] MEDS ORDERED: MAGNESIUM SULFATE 2 GM/S.W.I. 50 ML IV ONE (06:46)
--- NOTE | 2017-01-01 07:19 | PROGRESS NOTE ---
DATE: 01/01/2017 I again discussed with the patient's daughter about a CT scan of the chest, its importance, the risk of contrast induced nephropathy. Her renal function is stable. We will also get CT of the abdomen and pelvis to evaluate her liver lesion for possible metastatic disease. Daughter understood and agreed. She does understand it will not change the treatment plan as far as her DVT is concerned, but she wants to node the extent of the disease and will go head and get CT done. LABORATORIES: Her lab done this morning, her GFR more than 60. Magnesium 1.5. PLAN: I am going to supplement magnesium.
--- NOTE | 2017-01-01 07:19 | PROGRESS NOTE ---
DATE: 01/01/2017 SUBJECTIVE: Ms. Maguire is doing fair. No typical chest pain or unusual shortness of breath. Yesterday I did a venous Doppler. Patient ruled in for DVT in the lower leg. I started her initially on Eliquis but considering her age and after discussing with Dr. Guerrero, we changed her to Lovenox and Coumadin. I had a lengthy discussion with the patient's daughter about the risk of bleeding. She understood and agreed. Patient does have possible metastatic colon cancer. No apparent bleeding at this time. Her oral intake is fair. The patient does have a Shrestha catheter. Her leg swelling, initially patient had significant swelling which improved. OBJECTIVE: Vital signs: Noted. Neck: Supple. No JVD. Lungs: Bilateral good air entry present. CVS: S1 and S2. Irregularly irregular. Abdomen: Soft, globular. Bowel sounds present. SEAMLESS HOSIERY KNITTER: Alert, awake. Able to move all 4 limbs. CONSIDERATION: 1. Deep vein thrombosis involving the peroneal vein. The patient is on anticoagulation. Patient is developing some tachycardia. I am going to consider pulmonary arteriogram after discussing with the patient's daughter about risk of contrast induced nephropathy. 2. Atrial fibrillation with rapid ventricular response. 3. Pulmonary edema. 4. Possible metastatic colon cancer. 5. The patient does have dementia and situational depression. PLAN: Overall plan discussed with the patient and daughter. They are in agreement.
[2017-01-01] MEDS: LOPRESSOR PO SCH ×2 (08:32→20:22)
[2017-01-01] MEDS: SENOKOT PO SCH (08:32)
[2017-01-01] MEDS: CLARITIN PO SCH (08:32)
[2017-01-01] MEDS: ASPIRIN PO SCH (08:32)
[2017-01-01] MEDS: KLOR-CON PO SCH ×2 (08:32→20:23)
[2017-01-01] MEDS: LANOXIN PO SCH (08:32)
[2017-01-01] MEDS: COZAAR PO SCH (08:32)
[2017-01-01] MEDS: ALDACTONE PO SCH (08:32)
[2017-01-01] MEDS: FLONASE NAS SCH (08:33)
[2017-01-01] MEDS: CARDIZEM CD PO SCH (08:33)
[2017-01-01] MEDS ORDERED: LASIX IV SCH (09:00)
[2017-01-01] MEDS: MACROBID PO SCH ×2 (11:27→20:22)
--- NOTE | 2017-01-01 15:06 | Diag Imaging Result Document ---
PROCEDURE NAME: ABD/PELVIS/PULM ARTERIES - 01/01/[address] ABDOMEN AND PELVIS WITH IV AND ORAL CONTRAST: COMPARISON: CTA chest dated 12/22/[address] abdomen and pelvis dated 2016. CTA CHEST: FINDINGS: There is mild respiratory motion artifact, which may limit sensitivity for detecting small distal branch pulmonary emboli. However, the contrast bolus is adequate and there is no discrete filling defect to indicate pulmonary embolism. There is severe aortic atherosclerotic disease as was seen on the previous study. There are coronary artery calcifications. There is stable mild to moderate cardiomegaly. There is no new lymphadenopathy. There are stable moderate to large sized bilateral pleural effusions. There is associated atelectasis at the lung bases similar to the previous study. However, the atelectasis in the right middle lobe seen previously has improved. At least mild to moderate emphysematous changes are again noted. There are no new consolidations as compared to the recent prior study. There is suggestion of interstitial edema that appears to have improved at least marginally since the previous study. ABDOMEN/PELVIS: FINDINGS: There are few small low dense liver lesions that are nonspecific. Most are subcentimeter in size. The largest lesion is in the left hepatic lobe measuring about 1.2 cm, stable. The other smaller lesions also appear to be stable. Although nonspecific, metastatic foci cannot be excluded. There is trace ascites tracking around the liver and layering in the pelvis. There has been an interval colectomy. There is a patent ileostomy to the right of midline. There is mild diffuse mesenteric edema and surrounding soft tissue anasarca. In the small pelvic fluid collection, there is trace high density that appears to be layering at the posterior aspect of the fluid collection on the right. Most likely, this represents trace residual blood products related to the patient's fairly recent surgery. A small mesenteric metastatic implant seems less likely during this fairly short interval. This high dense focus measures approximately 1.3 x 0.8 cm and can be seen on image 115 of series 7. Otherwise, there is stable severe aortoiliac atherosclerotic disease with a stable small infrarenal abdominal aortic aneurysm. There is a Shrestha catheter in the urinary bladder. The remainder of the solid viscera of the abdomen and pelvis and the remainder of the GI tract are essentially stable as compared to the recent pre-surgical scan. There is no evidence of bowel obstruction or free abdominal gas on this study. IMPRESSION: 1. Approximately stable bilateral pleural effusions. 2. Bibasilar atelectasis similar to the previous study, but there has been improvement in the right middle lobe atelectasis. 3. Mild interstitial edema that appears to have improved at least marginally during the interval. 4. Stable vague low-dense foci in the liver that are nonspecific. Metastatic foci cannot be excluded. 5. Interval colectomy and ileostomy that is patent. 6. Trace fluid tracking around the liver and layering in the pelvis with slight increased density at the posterior aspect of the small pelvic fluid collection on the right. Please see the above discussion. 7. Other incidental/nonacute findings detailed above. [facility]
[2017-01-01] MEDS: NORCO-5 PO PRN (16:26)
[2017-01-01] MEDS: CARDIZEM 100 MG/NS 100 ML IV SCH ×2 (17:55→21:25)
[2017-01-01] MEDS: PROTONIX IV SCH (20:22)
[2017-01-01] MEDS: NEURONTIN PO SCH (20:22)
[2017-01-01] MEDS: REMERON PO SCH (20:22)
[2017-01-01] MEDS: COUMADIN PO SCH (20:23)
[2017-01-01] MEDS: ZANAFLEX PO PRN (20:23)
[2017-01-01] MEDS ORDERED: COUMADIN PO SCH (21:00)
[2017-01-02] MEDS: DUONEB (A & A) INH SCH ×6 (03:13→22:52)
[2017-01-02] MEDS: LOVENOX SUBQ SCH ×2 (04:24→17:05)
[2017-01-02 05:25] LABS: MANUAL DIFF NEEDED? NO
[2017-01-02 05:30] LABS: BASO% 0.5 % (0.0-0.8); EOS% 16.2 % (0.0-10.0); HEMATOCRIT 35.6 % (37.0-47.0); HEMOGLOBIN 11.2 g/dL (12.0-16.0); LYMPH# 0.79 X1000 (1.2-3.4); LYMPH% 14.2 % (20.5-51.1); MCH 26.8 PG (27-31); MCHC 31.5 g/dL (33-37); MCV 85.2 FL (81-99); MONO# 0.64 X1000 (0.11-0.59); MONO% 11.5 % (1.7-9.3); MPV 10.6 FL (7.4-10.4); NEUT% 57.6 % (42.2-75.2); PLT 203 X1000 (130-400); RBC 4.18 XMIL (4.2-5.4)
[2017-01-02 05:59] LABS: INR 1.29; PROTIME 13.1 Seconds (9.2-11.7)
[2017-01-02 06:24] LABS: AGAP 12; ALBUMIN 3.1 g/dL (3.5-5.0); ALKALINE PHOSPHATASE 64 U/L (32-104); BUN 10 mg/dL (8-22); CALCIUM 9.2 mg/dL (8.8-10.2); CHLORIDE 94 mmol/L (98-107); COSMO 270; GOT 21 U/L (10-30); GPT 12 U/L (10-36); POTASSIUM 4.2 mmol/L (3.5-5.1); SODIUM 136 mmol/L (136-145); TCO2 30 mmol/L (25-35); TOTAL BILIRUBIN 0.49 mg/dL (0.20-1.00); TOTAL PROTEIN 5.8 g/dL (6.3-8.3)
--- NOTE | 2017-01-02 07:48 | PROGRESS NOTE ---
DATE: 01/02/2017 SUBJECTIVE: Ms. Maguire is doing fair. The patient does have some confusion started yesterday. No high-grade fever or chills. At times, atrial fibrillation with rapid ventricular response. The patient had deep venous thrombosis of peroneal vein but no pulmonary embolism. Denied any chest pain. Oral intake is fair. OBJECTIVE: Vital Signs: Vital signs noted. Patient is tachycardic. Neck: Neck is supple. No jugular venous distention. Lungs: Bibasilar crepitations heart S1 and S2. Irregularly irregular. Abdomen: Soft, scaphoid. Bowel sounds present. Ileostomy is in place. Extremities: No cyanosis, clubbing. No acute deep venous thrombosis. FLEET COORDINATOR: Alert, awake, able to move all 4 limbs. LAB DATA: Done today, hemoglobin 11.2, hematocrit 35.6, platelet count 203,000. PT/INR 1.23. We will continue Coumadin. Electrolytes: BUN was 10, creatinine 0.6. The patient does have multiple medical problems, atrial fibrillation, with rapid ventricular response. The patient is on Lanoxin, Cardizem, and beta cabrera. I increased her Lanoxin to every day. Deep venous thrombosis on Lovenox and Coumadin. Pulmonary edema and congestive heart failure. Thinner Sprayer following patient with us. Urinary tract infection. The patient is on Macrobid as per culture. Colon cancer. History of gastrointestinal bleed. Labs and medications noted. Overall plan and prognosis discussed with the daughter. They are in agreement.
[2017-01-02] MEDS: MACROBID PO SCH ×2 (08:38→12:24)
[2017-01-02] MEDS: COZAAR PO SCH ×2 (08:38→17:06)
[2017-01-02] MEDS: KLOR-CON PO SCH ×3 (08:38→21:22)
[2017-01-02] MEDS: ASPIRIN PO SCH ×2 (08:38→12:24)
[2017-01-02] MEDS: LASIX IV SCH ×2 (08:38→21:21)
[2017-01-02] MEDS: FLONASE NAS SCH (08:39)
[2017-01-02] MEDS: LANOXIN PO SCH ×2 (08:39→12:24)
[2017-01-02] MEDS: SENOKOT PO SCH ×3 (08:39→17:06)
[2017-01-02] MEDS: LOPRESSOR PO SCH ×3 (08:39→21:21)
[2017-01-02] MEDS: ALDACTONE PO SCH ×2 (08:39→17:05)
[2017-01-02] MEDS: CLARITIN PO SCH ×3 (08:39→17:06)
--- NOTE | 2017-01-02 12:52 | CONSULTATION ---
DATE OF CONSULTATION: 01/01/2017 CONSULTATION REQUESTED: By Dr. Newman. REASON FOR CONSULTATION: New DVT with recent GI bleed. HISTORY OF PRESENT ILLNESS: Ms. Maguire is an 86-year-old female who is currently in the hospital for a GI bleed. Patient was recently discharged on 12/18/2016 after being admitted for a lower GI bleed. During that hospitalization, the patient was found to have a transverse colon malignancy with deep ulceration and ischemic colitis involving the right colon. She had an extended right hemicolectomy. The patient is now back with more GI bleeding. She was also found to be in atrial fibrillation with rapid ventricular rate. The patient was not placed on Lovenox due to her recent GI bleed and she developed a new DVT. The patient is now currently on Lovenox 1 mg per kg q.12 hours. She is currently in her room by herself. The patient is confused so again the information in regards to her history is taken from the chart. We have been consulted for further recommendations in regards to anticoagulation going forward. So again patient has dementia. Patient does not currently have a GI bleed. She had 1 with her last hospitalization. PAST MEDICAL HISTORY: 1. Gastritis and reflux disease. 2. Osteoarthritis. 3. Dementia. 4. Recent colon cancer and ischemic colon requiring right hemicolectomy. 5. Coronary artery disease. 6. Hyperlipidemia. 7. Anemia likely secondary to both blood loss and chronic disease. 8. Restless legs syndrome. SURGICAL HISTORY: 1. Right hemicolectomy back in November. 2. Stent placement. 3. Previous craniotomy. 4. Appendectomy. 5. Cardiac surgery. FAMILY HISTORY: Review of the chart, it seems that her family history is either unremarkable or noncontributory. The patient is unable to answer questions secondary to her dementia and confusion. Unable to obtain full family history. REVIEW OF SYSTEMS: As per the HPI. All else is assumed to be negative. Again cannot really discuss with the patient. She does complain of some cold hands. PHYSICAL EXAMINATION: Vital signs: Temperature 97.7 degrees, heart rate 95, respirations 16, blood pressure 110/67, O2 saturation is 97% on 3 L nasal cannula. General: elderly female, lying in hospital bed. She is alone in her room. The patient is notably confused when you speak with her. She is not agitated. HEENT: Head appears to be normocephalic, atraumatic. Eyes: Pupils equal, round, reactive. Ears, nose, throat, neck, and mouth: Oral mucosa appears to be normal. Trachea is midline. Cardiovascular: Irregularly irregular. Rate is relatively well controlled. Respiratory: Essentially clear to auscultation bilaterally. Normal respiratory effort. Gastrointestinal: Abdomen soft, nondistended. Positive bowel sounds. Musculoskeletal: No obvious bony abnormalities are noted. Extremities: The patient has some trace bilateral extremity edema. Neurologic: Patient is alert. She is not oriented to time or place. Oriented to self. No obvious focal motor deficits noted. LABS AND STUDIES: Hemoglobin 10.4, hematocrit 33.9, platelets 206,000. Sodium is 136, potassium 4.2. ASSESSMENT AND PLAN: 1. New DVT. Patient has a recent history of GI bleed. Recommend continued therapeutic Lovenox. If the patient's hemoglobin continues to remain stable and she has no further bleeding, recommend transitioning to Xarelto at 50 mg b.i.d. prior to discharge. She will need to be on 50 mg b.i.d. for a total of 21 days and then transition to a 20 mg tablet daily thereafter. 2. Atrial fibrillation with rapid ventricular rate. Currently being treated by Cardiology. Continued further recommendations. 3. Colon cancer. Aware. 4. Anemia, likely of chronic disease as well as maybe some blood-loss anemia previously. Hemoglobin is adequate at this time. Continue to monitor closely. 5. CHF. As per Cardiology and Dr. Newman. We want to thank you for consulting us on Ms. Maguire. We will continue to follow along and adjust treatment plan per her hospital course. Dictated by DONALD Johnson for Florina Guerrero MD
--- NOTE | 2017-01-02 14:30 | Diag Imaging Result Document ---
PROCEDURE NAME: HEAD W/O CONTRAST - 01/02/2017 CT HEAD WITHOUT CONTRAST: TECHNIQUE: A dose reduction protocol was used. COMPARISON: 11/20/2016. FINDINGS: There are generalized atrophic changes with mild ventriculomegaly similar to the previous exam. There are moderate chronic microvascular ischemic changes similar to the previous exam. There is no evidence of recent infarct, although acute infarcts may not be immediately visible. There is no evidence of hemorrhage, mass effect, or midline shift. There is mucosal thickening or fluid in the posterior sphenoid sinus similar to the previous exam. The mastoid air cells are partially aerated but appear less aerated compared to previous exam, suggesting the presence of mastoid effusions. IMPRESSION: 1. Atrophic changes and chronic microvascular ischemic changes similar to 11/20/2016. No visible acute process. No hemorrhage or mass effect. 2. Sphenoid sinusitis similar to previous exam. Apparent bilateral mastoid effusions.
[2017-01-02] MEDS: CARDIZEM CD PO SCH (17:06)
[2017-01-02] MEDS: CARDIZEM 100 MG/NS 100 ML IV SCH (17:06)
[2017-01-02] MEDS: ROCEPHIN 1 GM/NS 50 ML IV SCH (17:11)
[2017-01-02] MEDS: SODIUM CHLORIDE 0.9% INJ SCH (21:21)
[2017-01-02] MEDS: PROTONIX IV SCH (21:21)
[2017-01-02] MEDS: NORCO-5 PO PRN (21:21)
[2017-01-02] MEDS: REMERON PO SCH (21:22)
[2017-01-02] MEDS: NEURONTIN PO SCH (21:22)
[2017-01-02] MEDS: COUMADIN PO SCH (21:22)
[2017-01-03] MEDS: DUONEB (A & A) INH SCH ×4 (03:17→22:03)
[2017-01-03] MEDS ORDERED: CALMOSEPTINE OINTMENT TOP PRN (04:27)
[2017-01-03 05:32] LABS: MANUAL DIFF NEEDED? NO
[2017-01-03 05:39] LABS: BASO% 0.4 % (0.0-0.8); EOS# 0.68 X1000 (0.0-0.7); EOS% 13.9 % (0.0-10.0); HEMOGLOBIN 11.1 g/dL (12.0-16.0); LYMPH# 0.88 X1000 (1.2-3.4); MCH 26.2 PG (27-31); MCHC 30.8 g/dL (33-37); MCV 85.1 FL (81-99); MONO# 0.72 X1000 (0.11-0.59); MONO% 14.7 % (1.7-9.3); MPV 10.8 FL (7.4-10.4); PLT 209 X1000 (130-400); RBC 4.23 XMIL (4.2-5.4)
[2017-01-03 06:01] LABS: AGAP 14; ALBUMIN 3.1 g/dL (3.5-5.0); ALKALINE PHOSPHATASE 66 U/L (32-104); BUN 12 mg/dL (8-22); CALCIUM 9.2 mg/dL (8.8-10.2); CHLORIDE 92 mmol/L (98-107); COSMO 268; GOT 22 U/L (10-30); GPT 12 U/L (10-36); POTASSIUM 4.6 mmol/L (3.5-5.1); SODIUM 135 mmol/L (136-145); TCO2 29 mmol/L (25-35); TOTAL PROTEIN 5.7 g/dL (6.3-8.3)
[2017-01-03] MEDS: LOVENOX SUBQ SCH ×2 (06:02→17:28)
[2017-01-03 06:09] LABS: INR 1.79; PROTIME 18.1 Seconds (9.2-11.7)
--- NOTE | 2017-01-03 07:26 | PROGRESS NOTE ---
DATE: 01/03/2017 SUBJECTIVE: Ms. Maguire is doing fair. Yesterday patient was much more restless, at times delirious. I did reevaluate that patient yesterday and talked to family. We did CT scan of the head which did reveal sinusitis. No acute stroke or hemorrhage. The patient is sleeping well at night. At times, patient is not taking her medicine. No high-grade fever or chills. The patient does have tachycardia at times. PHYSICAL EXAMINATION: Vital signs: Noted. Neck: Supple. Lungs: Bibasilar crepitations. Heart: S1 and S2 tachycardia. Abdomen: Soft. Mild epigastric tenderness. No guarding or rigidity. Extremities: No cyanosis, clubbing. No acute DVT. CARDIOPULMONARY SPECIALIST: Patient is sleeping, but arousable. LAB DATA: Done this morning, hemoglobin 11.1, hematocrit 36, platelet count 209,000. PT/INR 1.79. The rest of the labs are noted. BUN was 12, creatinine 0.7. CONSIDERATION: 1. Atrial fibrillation with rapid ventricular response. 2. Urinary tract infection. 3. Pulmonary edema. 4. Deep vein thrombosis. 5. Colon cancer. 6. GI bleed. 7. Delirium. PLAN: I had lengthy discussion with the son yesterday and today with her daughter. The patient is very eager to go home. Her overall prognosis is not good and poor. Family wants to consider taking her home. We did discuss about hospice. They are in agreement. I am going to get hospice evaluation, and if they agree, I am planning to discharge patient home on hospice soon. Meanwhile we will continue current treatment.
[2017-01-03] MEDS: CLARITIN PO SCH (11:03)
[2017-01-03] MEDS: LASIX IV SCH ×2 (11:03→20:36)
[2017-01-03] MEDS: ASPIRIN PO SCH (11:03)
[2017-01-03] MEDS: FLONASE NAS SCH (11:03)
[2017-01-03] MEDS: KLOR-CON PO SCH ×2 (11:03→20:36)
[2017-01-03] MEDS: SENOKOT PO SCH (11:03)
[2017-01-03] MEDS: LANOXIN PO SCH (11:03)
[2017-01-03] MEDS: ALDACTONE PO SCH (11:03)
[2017-01-03] MEDS: COZAAR PO SCH (11:14)
[2017-01-03] MEDS: LOPRESSOR PO SCH ×2 (11:14→20:36)
[2017-01-03] MEDS: CARDIZEM CD PO SCH (11:14)
--- NOTE | 2017-01-03 11:20 | Extremity Venous Study ---
PROCEDURE NAME: Venous U/S Bilateral Legs - 12/31/2016 PROCEDURE: Bilateral lower extremity venous ultrasound. INTERPRETING PHYSICIAN: Johnny Bonds MD. REQUESTING PHYSICIAN: Dr. Newman INDICATION: Shortness of breath with elevated D-dimer. SUBMARINE OPERATOR: Amara. FINDINGS: All deep and superficial veins of bilateral lower extremities are visualized along their course. On the right side, the peroneal vein was noncompressible with evidence of intraluminal thrombus from the mid to proximal calf. Similarly, on the left, the soleal vein at the level of the mid calf was noncompressible with evidence of intraluminal thrombus consistent with acute DVT in both of these locations. The remaining vein were compressible with forward flow. SUMMARY: Bilateral deep vein thromboses on the right of the peroneal vein and on the left of the soleal vein. Dr. Newman was notified of these results after their findings.
[2017-01-03] MEDS: CARDIZEM 100 MG/NS 100 ML IV SCH (15:35)
[2017-01-03] MEDS: NORCO-5 PO PRN ×2 (17:27→23:07)
[2017-01-03] MEDS: ROCEPHIN 1 GM/NS 50 ML IV SCH (17:28)
[2017-01-03] MEDS: SODIUM CHLORIDE 0.9% INJ SCH (20:35)
[2017-01-03] MEDS: PROTONIX IV SCH (20:35)
[2017-01-03] MEDS: NEURONTIN PO SCH (20:36)
[2017-01-03] MEDS: COUMADIN PO SCH (20:36)
[2017-01-03] MEDS: REMERON PO SCH (20:36)
[2017-01-04] MEDS: ZANAFLEX PO PRN ×2 (02:08→22:38)
[2017-01-04] MEDS: NORCO-5 PO PRN ×2 (02:12→06:43)
[2017-01-04] MEDS: DUONEB (A & A) INH SCH ×4 (04:03→22:54)
[2017-01-04] MEDS: LOVENOX SUBQ SCH (04:26)
[2017-01-04 05:51] LABS: AGAP 12; ALBUMIN 3.2 g/dL (3.5-5.0); ALKALINE PHOSPHATASE 66 U/L (32-104); BUN 16 mg/dL (8-22); CALCIUM 9.3 mg/dL (8.8-10.2); CHLORIDE 93 mmol/L (98-107); COSMO 269; GOT 30 U/L (10-30); GPT 15 U/L (10-36); POTASSIUM 4.8 mmol/L (3.5-5.1); SODIUM 134 mmol/L (136-145); TCO2 29 mmol/L (25-35); TOTAL BILIRUBIN 0.31 mg/dL (0.20-1.00); TOTAL PROTEIN 5.9 g/dL (6.3-8.3)
[2017-01-04 06:01] LABS: INR 3.1; PROTIME 30.9 Seconds (9.2-11.7)
--- NOTE | 2017-01-04 07:02 | PROGRESS NOTE ---
DATE: 01/04/2017 SUBJECTIVE: Mr. Maguire is doing fair. The patient is, at times, restless. She seems to be getting confused at night. Oral intake is poor. Nutritional status was poor. We are trying to encourage Ensure. Patient is not drinking. Family does not want any feeding tube. They are requesting comfort care only. Her prothrombin time today. INR was 3. I am going to stop Lovenox and hold Coumadin. Patient had hospice evaluation. Family is in agreement. Plan is to discharge her home on hospice tomorrow as per family's request as patient had overall decline in her health and prognosis is poor. PHYSICAL EXAMINATION: Vital Signs: Her vital signs noted. Neck: Supple. No JVD. Lungs: A few basal crepitations. Heart: S1 and S2 heard. Abdomen: Soft, scaphoid. Bowel sounds present. HOSPITALIST PROGRAM DIRECTOR: Alert, awake. Able to move all 4 limbs but patient is at times confused. IMPRESSION AND PLAN: The patient does have multiple medical problems including atrial fibrillation with rapid ventricular response, bilateral DVT, pulmonary edema, colon cancer with possible metastasis, dementia. Overall plan and prognosis discussed with the family. They are in agreement.
[2017-01-04] MEDS: CARDIZEM 100 MG/NS 100 ML IV SCH (08:47)
[2017-01-04] MEDS: CARDIZEM CD PO SCH (08:52)
[2017-01-04] MEDS: KLOR-CON PO SCH ×2 (08:52→22:39)
[2017-01-04] MEDS: SENOKOT PO SCH (08:52)
[2017-01-04] MEDS: COZAAR PO SCH (08:53)
[2017-01-04] MEDS: ASPIRIN PO SCH (08:53)
[2017-01-04] MEDS: LANOXIN PO SCH (08:53)
[2017-01-04] MEDS: LASIX IV SCH ×2 (08:53→22:38)
[2017-01-04] MEDS: CLARITIN PO SCH (08:53)
[2017-01-04] MEDS: LOPRESSOR PO SCH ×2 (08:53→22:37)
[2017-01-04] MEDS: ALDACTONE PO SCH (08:53)
[2017-01-04] MEDS: FLONASE NAS SCH (11:22)
[2017-01-04] MEDS ORDERED: MAGNESIUM SULFATE 2 GM/S.W.I. 50 ML IV ONE (15:36)
[2017-01-04] MEDS: ROCEPHIN 1 GM/NS 50 ML IV SCH (17:46)
[2017-01-04] MEDS: SODIUM CHLORIDE 0.9% INJ SCH (22:37)
[2017-01-04] MEDS: PROTONIX IV SCH (22:37)
[2017-01-04] MEDS: NEURONTIN PO SCH (22:38)
[2017-01-04] MEDS: REMERON PO SCH (22:38)
[2017-01-05] MEDS: DUONEB (A & A) INH SCH ×2 (03:22→07:50)
[2017-01-05 05:25] LABS: INR 3.11; PROTIME 33.4 Seconds (9.2-11.7)
[2017-01-05 05:31] LABS: AGAP 15; ALBUMIN 3.2 g/dL (3.5-5.0); ALKALINE PHOSPHATASE 66 U/L (32-104); BUN 18 mg/dL (8-22); CALCIUM 9.8 mg/dL (8.8-10.2); CHLORIDE 95 mmol/L (98-107); COSMO 276; GOT 29 U/L (10-30); GPT 16 U/L (10-36); POTASSIUM 4.7 mmol/L (3.5-5.1); SODIUM 137 mmol/L (136-145); TCO2 27 mmol/L (25-35); TOTAL BILIRUBIN 0.39 mg/dL (0.20-1.00); TOTAL PROTEIN 6.1 g/dL (6.3-8.3)
[2017-01-05] MEDS: CARDIZEM 100 MG/NS 100 ML IV SCH (06:32)
[2017-01-05 08:10] VITALS: BP 163/68
[2017-01-05] MEDS: LASIX IV SCH (08:26)
[2017-01-05] MEDS: ASPIRIN PO SCH ×2 (08:26→09:54)
[2017-01-05] MEDS: CARDIZEM CD PO SCH ×2 (08:27→09:54)
[2017-01-05] MEDS: CLARITIN PO SCH ×2 (08:27→09:55)
[2017-01-05] MEDS: KLOR-CON PO SCH ×2 (08:27→09:56)
[2017-01-05] MEDS: LANOXIN PO SCH ×2 (08:27→09:56)
[2017-01-05] MEDS: COZAAR PO SCH ×2 (08:27→09:55)
[2017-01-05] MEDS: LOPRESSOR PO SCH ×2 (08:27→09:56)
[2017-01-05] MEDS: SENOKOT PO SCH ×2 (08:27→09:56)
[2017-01-05] MEDS: ALDACTONE PO SCH ×2 (08:27→09:54)
[2017-01-05] MEDS: FLONASE NAS SCH (09:37)
[2017-01-05] MEDS: ROCEPHIN 1 GM/NS 50 ML IV SCH (09:37)
--- NOTE | 2017-01-06 05:12 | DISCHARGE SUMMARY ---
ADMISSION DATE: 12/22/2016 DISCHARGE DATE: 01/05/2017 FINAL DISCHARGE DIAGNOSES: 1. Atrial fibrillation with rapid ventricular response. 2. Pulmonary edema. 3. Bilateral deep vein thrombosis, 4. Colon cancer with possible metastasis to the liver. 5. Delirium. 6. Urinary tract infection. 7. Osteoarthritis. 8. Failure to thrive. 9. Alzheimer's type dementia. 10. Gastritis and reflux disease. HISTORY OF PRESENT ILLNESS: Ms. Maguire, an 86-year-old, white female patient recently had a complicated hospital stay with gastrointestinal bleed. Found to have colon cancer, ischemic bowel requiring major surgery. The patient did well. She was discharged to correction. The patient develop increasing shortness of breath, leg swelling, pulmonary edema. The patient was sent back to the hospital. Found to have pulmonary edema, possible pneumonia. The patient was admitted to the hospital for further care. HOSPITAL COURSE: The patient was treated with Cardizem drip, IV Lasix, afterload preload safety coordinator. Cardiology consult obtained. Recommendations reviewed. The patient's recovery was very slow. The patient was treated also with IV antibiotics. She developed bilateral DVT. The patient was started on Lovenox and Coumadin. Hematology/Oncology consult obtained with Dr. Guerrero. The patient developed UTI due to Enterococcus faecalis and initially I gave her Macrobid which was changed to Rocephin. The patient was not getting better. She was getting more delirious. She was having good days and bad days. The patient had underlying dementia which was getting worse. Oral intake was poor. Family did not want feeding tube, as per patient's wishes. I repeated CT scan of the chest. There was no pulmonary embolism. CT scan of the abdomen result reviewed. Overall prognosis poor. Family is aware of prognosis. The patient is an 86-year-old, and according to family, she did not want to live this type of life. She was quite independent. They requested comfort care and hospice care. I had a discussion with the family about hospice care, which is a terminal care where goal is to keep the patient comfortable. They understood and agreed. We did hospice evaluation and I am going to discharge her home on hospice. They did request DNR level 1. Patient vital signs noted. PHYSICAL EXAMINATION: Vital Signs: Blood pressure 151/71, heart rate 100 temperature 98.5 degrees. Skin: Senile turgor. Neck: Supple. No JVD. Lungs: Bibasilar crepitations. CVS: S1 and S2. Tachycardia, 2/6 systolic murmur at the apex. Abdomen: Soft, scaphoid. 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 Extremities: No cyanosis, clubbing. No acute DVT clinically. [employer]: Alert, awake but patient does have some confusion. Able to move all 4 limbs. LAB DATA/DIAGNOSTIC DATA: Done today, PT/INR 3.11. We are holding her Coumadin and Lovenox. I am going to start her Xarelto from Sunday. Electrolytes fairly benign. BUN 18, creatinine 0.7. Lanoxin level was 0.8. Last hemoglobin 11.1, hematocrit 36, platelet count was 209,000. I repeated CT scan of the head because of her delirium which revealed chronic microvascular ischemic changes. No visible acute process. No hemorrhage or mass effect. Sphenoidal sinusitis and bilateral mastoid effusion. Venous Doppler of the lower limbs revealed bilateral deep vein thrombosis on the right of the peroneal vein, on the left of the soleus vein. CT scan of the abdomen and pelvis done on January 01. Stable bilateral pleural effusions. Bibasilar atelectasis. There has been improvement in the right middle lobe atelectasis. Stable vague low dense foci in the liver, which could be nonspecific. Metastatic foci cannot be excluded. Interval colectomy. Ascites. ASSESSMENT AND PLAN: Overall prognosis guarded. Family is aware of the prognosis. The patient is eager to go home and we will discharge patient home today.
--- NOTE | 2017-01-24 03:10 | DISCHARGE SUMMARY ---
ADMISSION DATE: 12/22/2016 DISCHARGE DATE: 01/05/2017 DISCHARGE SUMMARY ADDENDUM: The patient did have acute decompensated diastolic heart failure with chest x-ray showing pulmonary edema. The patient was appropriately treated with diuretics, oxygen, and her pro BNP was also elevated. cc: Kalyan Newman MD
== END 2017-01-05 10:55 | disposition hospice, home (50) ==
LOC: EDBD → ED 16:59 → 3S 19:47
PROVIDERS: ADMIT Internal Medicine; ATTEND Internal Medicine